=== PATIENT | female | born 1965 | race Caucasian/White ===

== ENCOUNTER 2019-04-11 20:02 | Outpatient (CLI) | payer MEDICAID | END 2019-04-11 20:03 | disposition critical access hospital (66) | LOC: EMS 20:02 | PROVIDERS: ATTEND Surgery | DX: R07.9 Chest pain, unspecified (principal); M25.512 Pain in left shoulder; R10.31 Right lower quadrant pain; M25.561 Pain in right knee; M79.632 Pain in left forearm; N64.4 Mastodynia; V49.40XA Driver injured in collision with unspecified motor vehicles in traffic accident, initial encounter; W22.11XA Striking against or struck by driver side automobile airbag, initial encounter; Y92.413 State road as the place of occurrence of the external cause | CPT/HCPCS: A0425; A0429; A0999 ==

== ENCOUNTER 2019-04-11 20:19 | Emergency (ER) | payer OTHER, MEDICAID ==
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
[2019-04-11] MEDS ORDERED: IOVERSOL 320 100 ML VIAL IVP ONE ×2 (20:29→20:59)
[2019-04-11 20:40] LABS: BASOPHILS % (AUTO) 0.3 %; EOSINOPHILS # (AUTO) 0.2 10^3/uL (0.0-0.7); EOSINOPHILS % (AUTO) 2.4 %; HGB - HEMOGLOBIN 12.2 g/dL (12.0-16.0); LYMPHOCYTES # (AUTO) 2.1 10^3/uL (1.5-3.5); LYMPHOCYTES % (AUTO) 33.7 %; MEAN CORPUSCULAR HEMOGLOBIN 29.3 pg (27.0-31.0); MEAN CORPUSCULAR HGB CONC 32.4 g/dL (32.0-36.0); MEAN CORPUSCULAR VOLUME 90.6 fL (81.0-99.0); MEAN PLATELET VOLUME 10.2 fL (7.9-10.8); MONOCYTES # (AUTO) 0.4 10^3/uL (0.0-1.0); MONOCYTES % (AUTO) 6.5 %; NEUTROPHILS # (AUTO) 3.5 10^3/uL (1.5-6.6); NEUTROPHILS % (AUTO) 56.8 %; PLT - PLATELET COUNT 243 10^3/uL (130-450); RED BLOOD COUNT 4.16 10^6/uL (4.20-5.40); RED CELL DISTRIBUTION WIDTH 13.4 % (12.0-15.0); WHITE BLOOD COUNT 6.2 x10^3/uL (4.8-10.8)
[2019-04-11 20:53] LABS: ALBUMIN/GLOBULIN RATIO 1.3 (1.0-2.2); BILIRUBIN,TOTAL 0.4 mg/dL (0.2-1.0); CALCIUM 8.7 mg/dL (8.5-10.3); CREATININE 0.8 mg/dL (0.4-1.0); TOTAL PROTEIN 7.1 g/dL (6.7-8.2)
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
[2019-04-11] MEDS ORDERED: HYDROcod/ACET 5/325 Prepack 4 PO STA (21:44)
[2019-04-12 00:47] VITALS: BP 135/92
== END 2019-04-11 21:51 | disposition home or self-care (01) ==
LOC: ED 20:19
DX: S20.219A Contusion of unspecified front wall of thorax, initial encounter (principal); S30.1XXA Contusion of abdominal wall, initial encounter; M79.632 Pain in left forearm; M25.561 Pain in right knee; V43.52XA Car driver injured in collision with other type car in traffic accident, initial encounter; W22.11XA Striking against or struck by driver side automobile airbag, initial encounter; Y92.411 Interstate highway as the place of occurrence of the external cause; R91.1 Solitary pulmonary nodule; Z87.891 Personal history of nicotine dependence
CPT/HCPCS: 36415; 71045; 71260; 74177; 80053; 83690; 85025; 99284; Q9967

== ENCOUNTER 2021-05-26 10:13 | Emergency (ER) | payer MEDICAID, OTHER ==
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
[2021-05-26 11:32] VITALS: BP 134/96
== END 2021-05-26 11:33 | disposition home or self-care (01) ==
LOC: ED 10:13
DX: S63.614A Unspecified sprain of right ring finger, initial encounter (principal); S60.041A Contusion of right ring finger without damage to nail, initial encounter; W21.06XA Struck by volleyball, initial encounter; Y93.89 Activity, other specified
CPT/HCPCS: 99282; 99283

== ENCOUNTER 2021-10-27 17:29 | Outpatient (CLI) | payer MEDICAID | END 2021-10-27 17:30 | disposition short-term general hospital (02) | LOC: EMS 17:29 | DX: R41.0 Disorientation, unspecified (principal); R51.9 Headache, unspecified; R47.81 Slurred speech; R29.810 Facial weakness; R42 Dizziness and giddiness | CPT/HCPCS: A0425; A0429; A0999 ==

== ENCOUNTER 2021-10-27 17:47 | Emergency (ER) | payer MEDICAID ==
--- NOTE | 2021-10-27 17:54 | ED Physician Documentation ---
History of Present Illness - Stated complaint Stated Complaint: CODE STROKE - Additonal information Additional information: 56-year-old female comes in the emergency department via EMS for evaluation of a code stroke. She was found in lawn of a house a few blocks from her own res idence. When EMS arrived she had left-sided facial droop and slurred speech. She was last seen normal at 3 PM when her niece had left the house. Patient reports to this provider that she has had a headache for much of the day and some occasional blurry vision in her left eye. She has not been aware of slurred speech or facial droop or arm or leg weakness. Patient was seen in this emergency department late last week after an intentional overdose attempt. She was subsequently transferred to [facility]. At that time her urine drug screen was positive for multiple medications including amphetamine and methamphetamine. On discharge from [facility] the patient was advised to begin taking bupropion, clonazepam, risperidone and sertraline for control of her mood and depression. She has been compliant with these. Review of Systems Constitutional: denies: Fever, Chills Ears: reports: Reviewed and negative Throat: reports: Reviewed and negative Cardiac: reports: Reviewed and negative Respiratory: reports: Reviewed and negative GI: reports: Reviewed and negative Skin: reports: Reviewed and negative Musculoskeletal: reports: Reviewed and negative Neurologic: reports: Difficulty speaking, Other (Left-sided facial droop) Psychiatric: reports: Reviewed and negative Endocrine: reports: Reviewed and negative PD PAST MEDICAL HISTORY - Past Medical History Cardiovascular: None Respiratory: None Neuro: None Endocrine/Autoimmune: None GI: None 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 : None HEENT: None Psych: Depression, Anxiety Musculoskeletal: None Derm: None - Past Surgical History Past Surgical History: Yes General: Cholecystectomy, Appendectomy HEENT: Other - Present Medications Home Medications: Ambulatory Orders Medication Instructions Recorded Confirmed Albuterol Sulfate [Proair 1 puffs INH Q4HR PRN 10/20/21 10/27/21 Digihaler] Omeprazole 40 mg PO DAILY 10/20/21 10/27/21 estradioL [Estradiol] 2 mg PO DAILY 10/20/21 10/27/21 Sertraline HCl [Zoloft] 50 mg PO TID 10/27/21 10/27/21 buPROPion HCL [Bupropion HCl] 100 mg PO BID 10/27/21 10/27/21 clonazePAM [KlonoPIN] 0.5 mg PO BID 10/27/21 10/27/21 - Allergies Allergies/Adverse Reactions: Allergies Allergy/AdvReac Type Severity Reaction Status Date / Time terbutaline [From Brethine] Allergy Rash Verified 10/27/21 18:15 Tetracyclines Allergy Rash Verified 10/27/21 18:15 latex AdvReac Rash Verified 10/27/21 18:15 vancomycin AdvReac Rash Verified 10/27/21 18:15 - Social History Does the pt smoke?: No Smoking Status: Never smoker Does the pt drink ETOH?: No - Immunizations Immunizations are current?: Yes PD ED PE EXPANDED - General General: Alert, Other (Mild slurred speech, left-sided facial droop) - Cardiac Cardiac: Regular Rate, Radial strong equal. No: Murmur Present - Respiratory Respiratory: Clear to ausultation heather. No: Distress, Labored - Abdomen Abdomen: Normal Bowel sounds. No: Tender to palpation - Derm Derm: Normal color, Warm and dry. No: Rash - Extremities Extremities: Normal. No: Deformity, Tenderness - Neuro Neuro: Confused, Other (Slurred speech left-sided facial droop) - GCS Eye Opening: Spontaneous Motor: Obeys Commands Verbal: Confused Total: 14 Results - Vitals Vitals: Vital Signs - 24 hr 10/27/21 10/27/21 10/27/21 18:12 18:47 19:30 Temperature 36.6 C Heart Rate 87 90 97 Respiratory 12 15 18 Rate Blood Pressure 144/82 H 154/89 H 140/87 H O2 Saturation 98 99 96 Oxygen O2 Source Room air - EKG (time done) 1812 Rate: Rate (enter#) (85) Rhythm: NSR [place]: Normal Intervals: Normal NV, Prolonged QT QRS: LVH Ischemia: Non specific changes Compare to prior EKG: Old EKG unavailable Computer interpretation: Agree with computer - Labs Labs: Laboratory Tests 10/27/21 10/27/21 10/27/21 18:20 18:20 18:20 WBC 6.8 RBC 4.30 Hgb 12.4 Hct 36.8 L MCV 85.6 MCH 28.8 MCHC 33.7 RDW 12.5 Plt Count 242 MPV 10.2 Neut # (Auto) 4.6 Lymph # (Auto) 1.6 [place] # (Auto) 0.5 Eos # (Auto) 0.0 Baso # (Auto) 0.0 Absolute Nucleated RBC 0.00 Nucleated RBC % 0.0 Sodium 135 Potassium 3.9 Chloride 100 L Carbon Dioxide 26 Anion Gap 9.0 BUN 17 Creatinine 0.9 Estimated GFR (MDRD) 65 L Glucose 108 H Calcium 9.1 Total Bilirubin < 0.2 L AST 25 ALT 34 Alkaline Phosphatase 52 Troponin I High Sens 2.6 Total Protein 6.7 Albumin 4.1 Globulin 2.6 Albumin/Globulin Ratio 1.6 Lipase 28 Urine Color Urine Clarity Urine pH Ur Specific [place] Urine Protein Urine Glucose (UA) Urine Ketones Urine Occult Blood Urine Nitrite Urine Bilirubin Urine Urobilinogen Ur Leukocyte Esterase Ur Microscopic Review Urine Culture Comments Urine Opiates Screen Ur Oxycodone Screen Urine Methadone Screen Ur Propoxyphene Screen Ur Barbiturates Screen Ur Tricyclics Screen Ur Phencyclidine Scrn Ur Amphetamine Screen U Methamphetamines Scrn U Benzodiazepines Scrn Urine Cocaine Screen U Cannabinoids Screen Ethyl Alcohol < 5.0 10/27/21 18:41 WBC RBC Hgb Hct MCV MCH MCHC RDW Plt Count MPV Neut # (Auto) Lymph # (Auto) [place] # (Auto) Eos # (Auto) Baso # (Auto) Absolute Nucleated RBC Nucleated RBC % Sodium Potassium Chloride Carbon Dioxide Anion Gap BUN Creatinine Estimated GFR (MDRD) Glucose Calcium Total Bilirubin AST ALT Alkaline Phosphatase Troponin I High Sens Total Protein Albumin Globulin Albumin/Globulin Ratio Lipase Urine Color YELLOW Urine Clarity CLEAR Urine pH 6.0 Ur Specific [place] 1.015 Urine Protein NEGATIVE Urine Glucose (UA) NEGATIVE Urine Ketones NEGATIVE Urine Occult Blood NEGATIVE Urine Nitrite NEGATIVE Urine Bilirubin NEGATIVE Urine Urobilinogen 0.2 (NORMAL) Ur Leukocyte Esterase NEGATIVE Ur Microscopic Review NOT INDICATED Urine Culture Comments NOT INDICATED Urine Opiates Screen NEGATIVE Ur Oxycodone Screen NEGATIVE Urine Methadone Screen NEGATIVE Ur Propoxyphene Screen NEGATIVE Ur Barbiturates Screen NEGATIVE Ur Tricyclics Screen POSITIVE H Ur Phencyclidine Scrn NEGATIVE Ur Amphetamine Screen NEGATIVE U Methamphetamines Scrn NEGATIVE U Benzodiazepines Scrn NEGATIVE Urine Cocaine Screen NEGATIVE U Cannabinoids Screen POSITIVE H Ethyl Alcohol - Rads (name of study) CT head/angio Radiology: Final report received angio neck Radiology: Final report received (no critical stenosis or aneurysm) PD MEDICAL DECISION MAKING - ED course Complexity details: reviewed results, re-evaluated patient, considered differential, d/w patient, d/w product safety consultant (tele stroke Dr. Luque) ED course: 56-year-old female comes the emergency department for evaluation of acute left- sided facial droop and slurred speech. Reportedly last normal around 3 PM when her niece left the house. Patient had reported a headache for much of the day and because she did not feel well went for a walk. She further began to feel poorly therefore she laid down in a lawn of a house where EMS was summoned. CT angio of the head and neck were negative for any acute thrombotic, aneurysmal or stenotic events. Given the timing of events she did have a telemetry stroke consultation completed. Her initial NIHSS was 4 for facial droop and slurred speech only. Telestroke evaluation indicates that they feel she likely has a complex migraine as etiology of symptoms but would recommend observation overnight for the stroke pathway and MRI as an outpatient if unable to accommodate here today. Given the relatively minor NIHSS score 4 she would not recommend tPA.. We will administer some Reglan to see if it improves the headache and give patient 325 of aspirin. 2005: On reevaluation the patient is now free of headache. She no longer has slurred speech or facial droop. Given that this improved after Reglan this likely represents a complex migraine However a TIA remains in the differential. We do not have echocardiogram or MRI services available overnight. I discussed with the patient that observation to the hospital would include only neurochecks since we cannot offer any other evaluation. At this time she feels markedly improved and feels stable for discharge home. She is advised to have very close follow-up with her primary care provider. She needs to have an outpatient MRI and an echocardiogram. She will be advised to begin taking aspirin 81 mg daily. Otherwise emergent return precautions discussed Departure - Departure Disposition: Home, Self Care Clinical Impression: Stroke-like symptoms Condition: Stable Record reviewed to determine appropriate education?: Yes Comments: Carrie you are seen in the emergency department today because you have had a headache all day and you went on a walk where you began to feel further unwell. You laid in a grass yard of a neighbor and 911 was called. On presentation to the emergency department you complained of a headache and had some very mild left-sided facial droop and slurred speech. We did do CT angiogram of the blood vessels of your head and neck. There was no findings of intracranial hemorrhage, stenosis or aneurysm. You were evaluated by the telestroke neurologist Dr. Luque. She feels that the constellation of your symptoms likely means you have had a complex migraine though a TIA or transient ischemic attack is not fully ruled out. Unfortunately we do not have MRI available over the weekend at [facility]. However because your symptoms seems to have fully resolved you are stable for discharge home. We do make the recommendation that you start taking a baby aspirin each day. Your primary care provider should order an outpatient MRI of your brain as well as an echocardiogram of your heart. You can continue to take all the other medications as advised by [facility]. If at any point you redevelop slurred speech, have loss of vision facial droop or sudden weakness in your arms or legs and please return immediately to the ER for repeat evaluation NIHSS - Time Time: 17:50 - Level of Consciousness Level of consciousness: (0) Alert, Keenly responsive LOC Questions: (0) Answers both Q's correct LOC Commands: (0) Performs both correctly - Gaze Best Gaze: (0) Normal - Visual Visual: (0) No loss - Facial Palsy Facial Palsy: (2) Partial paralysis - Motor Arms (both separate) Motor Arm (right): (0) No drift Motor Arm (left): (0) No drift - Motor Legs (both separate) Motor Leg (right): (0) No drift Motor Leg (left): (0) No drift - Limb Ataxia Limb Ataxia: (0) Absent - Sensory Sensory: (0) Normal - Best Language Best Language: (1) [id number] - Dysarthria Dysarthria: (1) [id number] dysarthria - Extinction and Inattention (formally neg Extinction and inattention: (0) No abnormality - Total Score/Results Total Score/Result: 4
--- OUTSIDE RECORDS SUMMARY | 2021-10-27 18:16 | EXTERNAL MEDICAL SUMMARY RPT | Continuity of Care Document ---
:1965 Author Organization [facility] Address [address] [place] [address] Phone Allergies and Intolerances date description facility type (no date) [facility] (unknown) Encounters No information. Functional Status No information. Immunizations No information. Medications date description facility +0000 Ibuprofen 800 MG Oral Tablet [facility] +0000 Lorazepam 1 MG Oral Tablet [facility] +0000 Acetaminophen 325 MG / Hydrocodone Is [facility] Bitartrate 5 MG Oral Tablet Problems No information. Procedures date description facility +0000 [facility] Results/Labs test date author facility value unit interpret ation Result panel 1 (unknown) (no (unknown) (unknown) (no value) (units (unk nown) date) unknown) (unknown) (no (unknown) (unknown) Medications: (units (u nknown) date) unknown) (unknown) (no (unknown) (unknown) '[facility]' (units (unkno wn) date) unknown) (unknown) (no (unknown) (unknown) [place], [place] (units ( unknown) date) [id number] unknown) (unknown) (no (unknown) (unknown) [facility] (units (unkno wn) date) unknown) (unknown) (no (unknown) (unknown) [facility] (units ([facility] date[facility]) (unknown) (no (unknown) (unknown) [facility] BENADRYL (units ( unknown) date) FIRST unknown) (unknown) (no (unknown) (unknown) HEART ATTACK (units (u nknown) date) unknown) (unknown) (no (unknown) (unknown) HIVES/VOMIT (units (un known) date) unknown) (unknown) (no (unknown) (unknown) IF ON AWHILE OR (units (unknown) date) IN MOUTH (DENTAL) unknown) (unknown) (no (unknown) (unknown) Internal Medicine (units (unknown) date) Office Visit unknown) (unknown) (no (unknown) (unknown) VOMITING (units (unkno wn) date) unknown) (unknown) (no (unknown) (unknown) please take it (units (unknown) date) with foods 800 mg unknown) PO TID PRN 150 tabs 3RF pain (unknown) (no (unknown) (unknown) (no value) (units (unk nown) date) unknown) (unknown) (no (unknown) (unknown) Confirmed (units (unkn own) date) 08/28/21] unknown) (unknown) (no (unknown) (unknown) 08/17/21 [Rx (units (u nknown) date) Confirmed unknown) 08/28/21] (unknown) (no (unknown) (unknown) 08/28/21 (units (unkno wn) date) unknown) (unknown) (no (unknown) (unknown) 08/28/21] (units (unkn own) date) unknown) (unknown) (no (unknown) (unknown) [id number] (units (unkno wn) date) unknown) (unknown) (no (unknown) (unknown) Age/Sex: 56 / F (units (unknown) date) Date of Service: unknown) (unknown) (no (unknown) (unknown) Allergies (units (unkn own) date) unknown) (unknown) (no (unknown) (unknown) Anxiety (units (unkno wn) date) (11/22/16) unknown) (unknown) (no (unknown) (unknown) Assessment + Plan (units (unknown) date) unknown) (unknown) (no (unknown) (unknown) Attending Dr: (units ( unknown) date) Nasir Burdick MD unknown) (unknown) (no (unknown) (unknown) Bipolar I (units (unkn own) date) disorder unknown) (unknown) (no (unknown) (unknown) Chronic back pain (units (unknown) date) unknown) (unknown) (no (unknown) (unknown) Chronic left (units (u nknown) date) shoulder pain unknown) (unknown) (no (unknown) (unknown) Chronic pain of (units (unknown) date) left knee unknown) (unknown) (no (unknown) (unknown) Chronic pain (units (u nknown) date) syndrome unknown) (unknown) (no (unknown) (unknown) Confirmed (units (unkn own) date) 08/28/21] unknown) (unknown) (no (unknown) (unknown) : 1965 (units (unknown) date) Acct:[id number] unknown) (unknown) (no (unknown) (unknown) Dept at (units (unkno wn) date) . unknown) (unknown) (no (unknown) (unknown) Dizziness (units (unkn own) date) unknown) (unknown) (no (unknown) (unknown) Documented By: (units (unknown) date) Nasir Burdick MD unknown) 08/28/21 1521 (unknown) (no (unknown) (unknown) Dyspareunia in (units (unknown) date) female (05/22/16) unknown) (unknown) (no (unknown) (unknown) H/O migraine (units (u nknown) date) unknown) (unknown) (no (unknown) (unknown) Has a bad knot (units (unknown) date) between neck and unknown) lower back. (unknown) (no (unknown) (unknown) Hearing loss (units (u nknown) date) unknown) (unknown) (no (unknown) (unknown) History of bowel (units (unknown) date) resection unknown) (unknown) (no (unknown) (unknown) INHALATION Q2HP (units (unknown) date) PRN #2 inh unknown) 06/26/21 [Rx Confirmed 08/28/21] (unknown) (no (unknown) (unknown) Intake (units (unkno wn) date) unknown) (unknown) (no (unknown) (unknown) Intake Note: (units (u nknown) date) unknown) (unknown) (no (unknown) (unknown) Intake performed (units (unknown) date) by: Lavinia Dutton unknown) (unknown) (no (unknown) (unknown) Intake- Clincial (units (unknown) date) Staff unknown) (unknown) (no (unknown) (unknown) Last Menstural (units (unknown) date) Cycle + Details unknown) (unknown) (no (unknown) (unknown) Loc: [facility] (units (unkno wn) date) unknown) (unknown) (no (unknown) (unknown) Lower left eyelid (units (unknown) date) twiches a lot now unknown) (unknown) (no (unknown) (unknown) Major depression (units (unknown) date) in complete unknown) remission (unknown) (no (unknown) (unknown) Medical History (units (unknown) date) (Updated 03/06/21 unknown) @ 11:29 by Nasir Burdick MD) (unknown) (no (unknown) (unknown) Medications (units (un known) date) unknown) (unknown) (no (unknown) (unknown) Mixed (units (unkno wn) date) incontinence unknown) (unknown) (no (unknown) (unknown) Mother thought (units (unknown) date) she may have been unknown) diabetic - was checking #s for a week and #s (unknown) (no (unknown) (unknown) No other (units (unkno wn) date) questions/concerns unknown) brought up to MA. (unknown) (no (unknown) (unknown) Other Menstrual (units (unknown) date) Period: Surgical unknown) Menopause (unknown) (no (unknown) (unknown) PFSH (units (unkno wn) date) unknown) (unknown) (no (unknown) (unknown) Patient: (units (unkno wn) date) HeatherconiCarrie unknown) MR#: [id number] (unknown) (no (unknown) (unknown) Present for 3 (units ( unknown) date) weeks and thats unknown) how long the dizziness has been present. (unknown) (no (unknown) (unknown) Primary insomnia (units (unknown) date) (05/22/16) unknown) (unknown) (no (unknown) (unknown) Reason For Visit (units (unknown) date) unknown) (unknown) (no (unknown) (unknown) Refilled (units (unkno wn) date) unknown) (unknown) (no (unknown) (unknown) Review/Discuss. (units (unknown) date) unknown) (unknown) (no (unknown) (unknown) Signed By: (units (unk nown) date) unknown) (unknown) (no (unknown) (unknown) Smoking Status: (units (unknown) date) Former smoker unknown) (unknown) (no (unknown) (unknown) Status post (units (un known) date) appendectomy unknown) (unknown) (no (unknown) (unknown) Status post (units (un known) date) cholecystectomy unknown) (unknown) (no (unknown) (unknown) Surgical History (units (unknown) date) (Reviewed 02/25/19 unknown) @ 05:05 by Mendoza Alejandro DO) (unknown) (no (unknown) (unknown) TAPES-CLEAR (units (un known) date) Allergy (Mild, unknown) Uncoded 08/28/21 15:21) (unknown) (no (unknown) (unknown) This note may (units ( unknown) date) have been all or unknown) partially generated using voice recognition (unknown) (no (unknown) (unknown) Tobacco + (units (unkn own) date) Substance Use unknown) (unknown) (no (unknown) (unknown) Tobacco Status (units (unknown) date) unknown) (unknown) (no (unknown) (unknown) Uncomplicated (units ( unknown) date) opioid dependence unknown) (unknown) (no (unknown) (unknown) Visit Reasons: (units (unknown) date) Dizziness unknown) (unknown) (no (unknown) (unknown) Wonders if it (units ( unknown) date) might be unknown) chiropactic. (unknown) (no (unknown) (unknown) albuterol sulfate (units (unknown) date) 90 mcg/actuation unknown) aerosol inhaler (Ventolin HFA) 2 puff (unknown) (no (unknown) (unknown) alcohol intake: (units (unknown) date) never unknown) (unknown) (no (unknown) (unknown) azelastine 205.5 (units (unknown) date) mcg (0.15 %) nasal unknown) spray 1 spray NASAL BID #30 ml 10/28/18 [Rx (unknown) (no (unknown) (unknown) chlorhexidine (units ( unknown) date) gluconate 0.12 % unknown) mouthwash 15 ml MM BID PRN ml 11/25/18 [History (unknown) (no (unknown) (unknown) cyclobenzaprine (units (unknown) date) 10 mg tablet 10 mg unknown) PO TID PRN #60 tab 04/19/21 [Rx Confirmed (unknown) (no (unknown) (unknown) estradiol 2 mg (units (unknown) date) tablet 2 mg PO unknown) DAILY #90 tab 03/17/22 [Rx Confirmed 08/28/21] (unknown) (no (unknown) (unknown) have occurred. (units (unknown) date) If there are any unknown) questions, please contact the Medical Records (unknown) (no (unknown) (unknown) hydrocodone 5 (units ( unknown) date) mg-acetaminophen unknown) 325 mg tablet 1 - 2 tab PO Q4H PRN #70 tab (unknown) (no (unknown) (unknown) hyoscyamine (units (un known) date) sulfate 0.125 mg unknown) tablet 0.125 mg PO Q4H PRN #90 tab 07/04/21 [Rx (unknown) (no (unknown) (unknown) ibuprofen (units (unkn own) date) unknown) (unknown) (no (unknown) (unknown) ibuprofen 800 mg (units (unknown) date) tablet 800 mg PO unknown) TID PRN #150 tab 08/28/21 [Rx Confirmed (unknown) (no (unknown) (unknown) latex Allergy (units ( unknown) date) (Mild, Verified unknown) 08/28/21 15:21) (unknown) (no (unknown) (unknown) loratadine 10 mg (units (unknown) date) tablet 10 mg PO unknown) DAILY #90 tab 12/28/20 [Rx Confirmed 08/28/21] (unknown) (no (unknown) (unknown) lorazepam 1 mg (units (unknown) date) tablet 1 mg PO Q8H unknown) PRN #60 tab 08/17/21 [Rx Confirmed 08/28/21] (unknown) (no (unknown) (unknown) may occur. (units (unk nown) date) Occasional unknown) wrong-word or 'sound-alike' substitutions may have (unknown) (no (unknown) (unknown) naproxen Adverse (units (unknown) date) Reaction (Mild, unknown) Verified 08/28/21 15:21) (unknown) (no (unknown) (unknown) occurred due to (units (unknown) date) the inherent unknown) limitations of voice recognition software. Please (unknown) (no (unknown) (unknown) omeprazole 40 mg (units (unknown) date) capsule,delayed unknown) release 40 mg PO DAILY #90 cap 03/27/21 [Rx (unknown) (no (unknown) (unknown) read the note (units ( unknown) date) carefully and unknown) recognize, using context, where these substitutions (unknown) (no (unknown) (unknown) ritodrine Allergy (units (unknown) date) (Severe, Verified unknown) 08/28/21 15:21) (unknown) (no (unknown) (unknown) sertraline 100 mg (units (unknown) date) tablet 150 mg PO unknown) DAILY #135 tab 11/28/20 [Rx Confirmed (unknown) (no (unknown) (unknown) software. 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 (unknown) (no (unknown) (unknown) substance use (units ( unknown) date) type: does not use unknown) (unknown) (no (unknown) (unknown) sucralfate 1 gram (units (unknown) date) tablet 1 g PO unknown) QACHS #120 tab 11/28/20 [Rx Confirmed 08/28/21] (unknown) (no (unknown) (unknown) tetracycline (units (u nknown) date) Allergy (Mild, unknown) Verified 08/28/21 15:21) (unknown) (no (unknown) (unknown) trazodone 50 mg (units (unknown) date) tablet See Rx unknown) Instructions .ROUTE .COMPLEX #360 tab 06/19/21 [Rx (unknown) (no (unknown) (unknown) vancomycin (units (unk nown) date) Allergy unknown) (Intermediate, Verified 08/28/21 15:21) (unknown) (no (unknown) (unknown) were fine. (units (unk nown) date) unknown) Result panel 2 (unknown) (no (unknown) (unknown) (no value) (units (unk nown) date) unknown) (unknown) (no (unknown) (unknown) Medications: (units (u nknown) date) unknown) (unknown) (no (unknown) (unknown) (no value) (units (unk nown) date) unknown) (unknown) (no (unknown) (unknown) '[facility]IAM' (units (unkno wn) date) unknown) (unknown) (no (unknown) (unknown) 08/28/21 (units (unkno wn) date) unknown) (unknown) (no (unknown) (unknown) 15:27 (units (unkno wn) date) unknown) (unknown) (no (unknown) (unknown) [place], [place] (units ( unknown) date) [id number] unknown) (unknown) (no (unknown) (unknown) [facility] (units (unkno wn) date) unknown) (unknown) (no (unknown) (unknown) [facility] ([facility] ([facility]) (unknown) (no (unknown) (unknown) [facility] (units ( unknown) date) FIRST unknown) (unknown) (no (unknown) (unknown) HEART ATTACK (units (u nknown) date) unknown) (unknown) (no (unknown) (unknown) HIVES/VOMIT (units (un known) date) unknown) (unknown) (no (unknown) (unknown) IF ON AWHILE OR (units (unknown) date) IN MOUTH (DENTAL) unknown) (unknown) (no (unknown) (unknown) Internal Medicine (units (unknown) date) Office Visit unknown) (unknown) (no (unknown) (unknown) VOMITING (units (unkno wn) date) unknown) (unknown) (no (unknown) (unknown) please take it (units (unknown) date) with foods 800 mg unknown) PO TID PRN 150 tabs 3RF pain (unknown) (no (unknown) (unknown) (no value) (units (unk nown) date) unknown) (unknown) (no (unknown) (unknown) Confirmed (units (unkn own) date) 08/28/21] unknown) (unknown) (no (unknown) (unknown) 08/17/21 [Rx (units (u nknown) date) Confirmed unknown) 08/28/21] (unknown) (no (unknown) (unknown) 08/28/21 (units (unkno wn) date) unknown) (unknown) (no (unknown) (unknown) 08/28/21] (units (unkn own) date) unknown) (unknown) (no (unknown) (unknown) [id number] (units (unkno wn) date) unknown) (unknown) (no (unknown) (unknown) Age/Sex: 56 / F (units (unknown) date) Date of Service: unknown) (unknown) (no (unknown) (unknown) Allergies (units (unkn own) date) unknown) (unknown) (no (unknown) (unknown) Anxiety (units (unkno wn) date) (11/22/16) unknown) (unknown) (no (unknown) (unknown) Assessment + Plan (units (unknown) date) unknown) (unknown) (no (unknown) (unknown) Attending Dr: (units ( unknown) date) Nasir Burdick MD unknown) (unknown) (no (unknown) (unknown) BMI 25.8 (units (un known) date) unknown) (unknown) (no (unknown) (unknown) BP 130/92 H (units (unknown) date) unknown) (unknown) (no (unknown) (unknown) Bipolar I (units (unkn own) date) disorder unknown) (unknown) (no (unknown) (unknown) Blood Pressure (units (unknown) date) Location Lt unknown) brachial (unknown) (no (unknown) (unknown) Chronic back pain (units (unknown) date) unknown) (unknown) (no (unknown) (unknown) Chronic left (units (u nknown) date) shoulder pain unknown) (unknown) (no (unknown) (unknown) Chronic pain of (units (unknown) date) left knee unknown) (unknown) (no (unknown) (unknown) Chronic pain (units (u nknown) date) syndrome unknown) (unknown) (no (unknown) (unknown) Confirmed (units (unkn own) date) 08/28/21] unknown) (unknown) (no (unknown) (unknown) : 1965 (units (unknown) date) Acct:[id number] unknown) (unknown) (no (unknown) (unknown) Dept at (units (unkno wn) date) . unknown) (unknown) (no (unknown) (unknown) Dizziness (units (unkn own) date) unknown) (unknown) (no (unknown) (unknown) Documented By: (units (unknown) date) Nasir Burdick MD unknown) 08/28/21 1521 (unknown) (no (unknown) (unknown) Dyspareunia in (units (unknown) date) female (05/22/16) unknown) (unknown) (no (unknown) (unknown) H/O migraine (units (u nknown) date) unknown) (unknown) (no (unknown) (unknown) Has a bad knot (units (unknown) date) between neck and unknown) lower back. (unknown) (no (unknown) (unknown) Hearing loss (units (u nknown) date) unknown) (unknown) (no (unknown) (unknown) Height 5 ft 8 (units (unknown) date) in unknown) (unknown) (no (unknown) (unknown) History of bowel (units (unknown) date) resection unknown) (unknown) (no (unknown) (unknown) INHALATION Q2HP (units (unknown) date) PRN #2 inh unknown) 06/26/21 [Rx Confirmed 08/28/21] (unknown) (no (unknown) (unknown) Intake (units (unkno wn) date) unknown) (unknown) (no (unknown) (unknown) Intake Note: (units (u nknown) date) unknown) (unknown) (no (unknown) (unknown) Intake performed (units (unknown) date) by: Lavinia Dutton unknown) (unknown) (no (unknown) (unknown) Intake- Clincial (units (unknown) date) Staff unknown) (unknown) (no (unknown) (unknown) Last Menstural (units (unknown) date) Cycle + Details unknown) (unknown) (no (unknown) (unknown) Loc: [facility] (units (unkno wn) date) unknown) (unknown) (no (unknown) (unknown) Lower left eyelid (units (unknown) date) twiches a lot now unknown) (unknown) (no (unknown) (unknown) Major depression (units (unknown) date) in complete unknown) remission (unknown) (no (unknown) (unknown) Medical History (units (unknown) date) (Updated 03/06/21 unknown) @ 11:29 by Nasir Burdick MD) (unknown) (no (unknown) (unknown) Medications (units (un known) date) unknown) (unknown) (no (unknown) (unknown) Mixed (units (unkno wn) date) incontinence unknown) (unknown) (no (unknown) (unknown) Mother thought (units (unknown) date) she may have been unknown) diabetic - was checking #s for a week and #s (unknown) (no (unknown) (unknown) No other (units (unkno wn) date) questions/concerns unknown) brought up to MA. (unknown) (no (unknown) (unknown) Other Menstrual (units (unknown) date) Period: Surgical unknown) Menopause (unknown) (no (unknown) (unknown) Oxygen Delivery (units (unknown) date) Method room air unknown) (unknown) (no (unknown) (unknown) PFSH (units (unkno wn) date) unknown) (unknown) (no (unknown) (unknown) Patient: (units (unkno wn) date) Carrie Horn R unknown) MR#: [id number] (unknown) (no (unknown) (unknown) Position (units (unkno wn) date) Sitting unknown) (unknown) (no (unknown) (unknown) Present for 3 (units ( unknown) date) weeks and thats unknown) how long the dizziness has been present. (unknown) (no (unknown) (unknown) Primary insomnia (units (unknown) date) (05/22/16) unknown) (unknown) (no (unknown) (unknown) Pulse 87 (units (un known) date) unknown) (unknown) (no (unknown) (unknown) Pulse Oximetry (units (unknown) date) (%) 98 unknown) (unknown) (no (unknown) (unknown) Pulse Source (units (u nknown) date) Monitor unknown) (unknown) (no (unknown) (unknown) Reason For Visit (units (unknown) date) unknown) (unknown) (no (unknown) (unknown) Refilled (units (unkno wn) date) unknown) (unknown) (no (unknown) (unknown) Review/Discuss. (units (unknown) date) unknown) (unknown) (no (unknown) (unknown) Signed By: (units (unk nown) date) unknown) (unknown) (no (unknown) (unknown) Smoking Status: (units (unknown) date) Former smoker unknown) (unknown) (no (unknown) (unknown) Status post (units (un known) date) appendectomy unknown) (unknown) (no (unknown) (unknown) Status post (units (un known) date) cholecystectomy unknown) (unknown) (no (unknown) (unknown) Surgical History (units (unknown) date) (Reviewed 02/25/19 unknown) @ 05:05 by Mendoza Alejandro DO) (unknown) (no (unknown) (unknown) TAPES-CLEAR (units (un known) date) Allergy (Mild, unknown) Uncoded 08/28/21 15:21) (unknown) (no (unknown) (unknown) This note may (units ( unknown) date) have been all or unknown) partially generated using voice recognition (unknown) (no (unknown) (unknown) Tobacco + (units (unkn own) date) Substance Use unknown) (unknown) (no (unknown) (unknown) Tobacco Status (units (unknown) date) unknown) (unknown) (no (unknown) (unknown) Uncomplicated (units ( unknown) date) opioid dependence unknown) (unknown) (no (unknown) (unknown) Visit Reasons: (units (unknown) date) Dizziness unknown) (unknown) (no (unknown) (unknown) Vitals (units (unkno wn) date) unknown) (unknown) (no (unknown) (unknown) Weight 77.167 (units (unknown) date) kg unknown) (unknown) (no (unknown) (unknown) Wonders if it (units ( unknown) date) might be unknown) chiropactic. (unknown) (no (unknown) (unknown) albuterol sulfate (units (unknown) date) 90 mcg/actuation unknown) aerosol inhaler (Ventolin HFA) 2 puff (unknown) (no (unknown) (unknown) alcohol intake: (units (unknown) date) never unknown) (unknown) (no (unknown) (unknown) azelastine 205.5 (units (unknown) date) mcg (0.15 %) nasal unknown) spray 1 spray NASAL BID #30 ml 10/28/18 [Rx (unknown) (no (unknown) (unknown) chlorhexidine (units ( unknown) date) gluconate 0.12 % unknown) mouthwash 15 ml MM BID PRN ml 11/25/18 [History (unknown) (no (unknown) (unknown) cyclobenzaprine (units (unknown) date) 10 mg tablet 10 mg unknown) PO TID PRN #60 tab 04/19/21 [Rx Confirmed (unknown) (no (unknown) (unknown) estradiol 2 mg (units (unknown) date) tablet 2 mg PO unknown) DAILY #90 tab 07/13/21 [Rx Confirmed 08/28/21] (unknown) (no (unknown) (unknown) have occurred. (units (unknown) date) If there are any unknown) questions, please contact the Medical Records (unknown) (no (unknown) (unknown) hydrocodone 5 (units ( unknown) date) mg-acetaminophen unknown) 325 mg tablet 1 - 2 tab PO Q4H PRN #70 tab (unknown) (no (unknown) (unknown) hyoscyamine (units (un known) date) sulfate 0.125 mg unknown) tablet 0.125 mg PO Q4H PRN #90 tab 07/04/21 [Rx (unknown) (no (unknown) (unknown) ibuprofen (units (unkn own) date) unknown) (unknown) (no (unknown) (unknown) ibuprofen 800 mg (units (unknown) date) tablet 800 mg PO unknown) TID PRN #150 tab 08/28/21 [Rx Confirmed (unknown) (no (unknown) (unknown) latex Allergy (units ( unknown) date) (Mild, Verified unknown) 08/28/21 15:21) (unknown) (no (unknown) (unknown) loratadine 10 mg (units (unknown) date) tablet 10 mg PO unknown) DAILY #90 tab 12/28/20 [Rx Confirmed 08/28/21] (unknown) (no (unknown) (unknown) lorazepam 1 mg (units (unknown) date) tablet 1 mg PO Q8H unknown) PRN #60 tab 08/17/21 [Rx Confirmed 08/28/21] (unknown) (no (unknown) (unknown) may occur. (units (unk nown) date) Occasional unknown) wrong-word or 'sound-alike' substitutions may have (unknown) (no (unknown) (unknown) naproxen Adverse (units (unknown) date) Reaction (Mild, unknown) Verified 08/28/21 15:21) (unknown) (no (unknown) (unknown) occurred due to (units (unknown) date) the inherent unknown) limitations of voice recognition software. Please (unknown) (no (unknown) (unknown) omeprazole 40 mg (units (unknown) date) capsule,delayed unknown) release 40 mg PO DAILY #90 cap 03/27/21 [Rx (unknown) (no (unknown) (unknown) read the note (units ( unknown) date) carefully and unknown) recognize, using context, where these substitutions (unknown) (no (unknown) (unknown) ritodrine Allergy (units (unknown) date) (Severe, Verified unknown) 08/28/21 15:21) (unknown) (no (unknown) (unknown) sertraline 100 mg (units (unknown) date) tablet 150 mg PO unknown) DAILY #135 tab 11/28/20 [Rx Confirmed (unknown) (no (unknown) (unknown) software. 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 (unknown) (no (unknown) (unknown) substance use (units ( unknown) date) type: does not use unknown) (unknown) (no (unknown) (unknown) sucralfate 1 gram (units (unknown) date) tablet 1 g PO unknown) QACHS #120 tab 11/28/20 [Rx Confirmed 08/28/21] (unknown) (no (unknown) (unknown) tetracycline (units (u nknown) date) Allergy (Mild, unknown) Verified 08/28/21 15:21) (unknown) (no (unknown) (unknown) trazodone 50 mg (units (unknown) date) tablet See Rx unknown) Instructions .ROUTE .COMPLEX #360 tab 06/19/21 [Rx (unknown) (no (unknown) (unknown) vancomycin (units (unk nown) date) Allergy unknown) (Intermediate, Verified 08/28/21 15:21) (unknown) (no (unknown) (unknown) were fine. (units (unk nown) date) unknown) Result panel 3 (unknown) (no (unknown) (unknown) (no value) (units (unk nown) date) unknown) (unknown) (no (unknown) (unknown) Medications: (units (u nknown) date) unknown) (unknown) (no (unknown) (unknown) Orders: (units (unkno wn) date) unknown) (unknown) (no (unknown) (unknown) Qualifiers: (units (un known) date) unknown) (unknown) (no (unknown) (unknown) (no value) (units (unk nown) date) unknown) (unknown) (no (unknown) (unknown) 'WILLIAM' (units (unkno wn) date) unknown) (unknown) (no (unknown) (unknown) 08/28/21 (units (unkno wn) date) unknown) (unknown) (no (unknown) (unknown) 08/28/21 1544 (units ( unknown) date) unknown) (unknown) (no (unknown) (unknown) 15:27 (units (unkno wn) date) unknown) (unknown) (no (unknown) (unknown) [place] (units ( unknown) date) [id number] unknown) (unknown) (no (unknown) (unknown) [facility] (units ([facility] date[facility] unknown) (unknown) (no (unknown) (unknown) [facility] (units ( unknown) date) FIRST unknown) (unknown) (no (unknown) (unknown) HEART ATTACK (units (u nknown) date) unknown) (unknown) (no (unknown) (unknown) HIVES/VOMIT (units (un known) date) unknown) (unknown) (no (unknown) (unknown) Headache type: (units (unknown) date) unspecified unknown) Headache chronicity pattern: unspecified (unknown) (no (unknown) (unknown) IF ON AWHILE OR (units (unknown) date) IN MOUTH (DENTAL) unknown) (unknown) (no (unknown) (unknown) Internal Medicine (units (unknown) date) Office Visit unknown) (unknown) (no (unknown) (unknown) Signed (units (unkno wn) date) unknown) (unknown) (no (unknown) (unknown) VOMITING (units (unkno wn) date) unknown) (unknown) (no (unknown) (unknown) please take it (units (unknown) date) with foods 800 mg unknown) PO TID PRN 150 tabs 3RF pain (unknown) (no (unknown) (unknown) (no value) (units (unk nown) date) unknown) (unknown) (no (unknown) (unknown) Confirmed (units (unkn own) date) 08/28/21] unknown) (unknown) (no (unknown) (unknown) (1) Headache: (units ( unknown) date) unknown) (unknown) (no (unknown) (unknown) (2) Dizziness: (units (unknown) date) unknown) (unknown) (no (unknown) (unknown) 08/17/21 [Rx (units (u nknown) date) Confirmed unknown) 08/28/21] (unknown) (no (unknown) (unknown) 08/28/21 (units (unkno wn) date) unknown) (unknown) (no (unknown) (unknown) 08/28/21] (units (unkn own) date) unknown) (unknown) (no (unknown) (unknown) [id number] (units (unkno wn) date) unknown) (unknown) (no (unknown) (unknown) Abdomen-benign (units (unknown) date) unknown) (unknown) (no (unknown) (unknown) Age/Sex: 56 / F (units (unknown) date) Date of Service: unknown) (unknown) (no (unknown) (unknown) Allergies (units (unkn own) date) unknown) (unknown) (no (unknown) (unknown) Anxiety (units (unkno wn) date) (11/22/16) unknown) (unknown) (no (unknown) (unknown) Assessment + Plan (units (unknown) date) unknown) (unknown) (no (unknown) (unknown) Attending Dr: (units ( unknown) date) Nasir Burdick MD unknown) (unknown) (no (unknown) (unknown) BMI 25.8 (units (un known) date) unknown) (unknown) (no (unknown) (unknown) BP 130/92 H (units (unknown) date) unknown) (unknown) (no (unknown) (unknown) Bipolar I (units (unkn own) date) disorder unknown) (unknown) (no (unknown) (unknown) Blood Pressure (units (unknown) date) Location Lt unknown) brachial (unknown) (no (unknown) (unknown) C-Reactive (units (unk nown) date) Protein Quant unknown) Today H91.90 - Unspecified hearing loss, unspecified (unknown) (no (unknown) (unknown) CT head/brain wo (units (unknown) date) con 1 Week R42 - unknown) Dizziness and giddiness, R51.9 - Headache, (unknown) (no (unknown) (unknown) Chief Complaint: (units (unknown) date) Dizziness unknown) (unknown) (no (unknown) (unknown) Chronic back pain (units (unknown) date) unknown) (unknown) (no (unknown) (unknown) Chronic left (units (u nknown) date) shoulder pain unknown) (unknown) (no (unknown) (unknown) Chronic pain of (units (unknown) date) left knee unknown) (unknown) (no (unknown) (unknown) Chronic pain (units (u nknown) date) syndrome unknown) (unknown) (no (unknown) (unknown) Complete Blood (units (unknown) date) Count AUTO DIFF unknown) Today - Unspecified hearing loss, (unknown) (no (unknown) (unknown) Comprehensive (units ( unknown) date) Metabolic Panel unknown) Today - Unspecified hearing loss, (unknown) (no (unknown) (unknown) Confirmed (units (unkn own) date) 08/28/21] unknown) (unknown) (no (unknown) (unknown) : 1965 (units (unknown) date) Acct:[id number] unknown) (unknown) (no (unknown) (unknown) Dept at (units (unkno wn) date) . unknown) (unknown) (no (unknown) (unknown) Dizziness (units (unkn own) date) unknown) (unknown) (no (unknown) (unknown) Documented By: (units (unknown) date) Nasir Burdick MD unknown) 08/28/21 1521 (unknown) (no (unknown) (unknown) Dyspareunia in (units (unknown) date) female (05/22/16) unknown) (unknown) (no (unknown) (unknown) Erythrocyte (units (un known) date) Sedimentation Rate unknown) Today - Unspecified hearing loss, (unknown) (no (unknown) (unknown) Exam (units (unkno wn) date) unknown) (unknown) (no (unknown) (unknown) Exam Narrative (units (unknown) date) unknown) (unknown) (no (unknown) (unknown) Exam Narrative: (units (unknown) date) unknown) (unknown) (no (unknown) (unknown) Get labs on her (units (unknown) date) to make sure her unknown) thyroids not offer chemistries are okay and (unknown) (no (unknown) (unknown) H/O migraine (units (u nknown) date) unknown) (unknown) (no (unknown) (unknown) HEENT-normocephal (units (unknown) date) ic atraumatic TMs unknown) normal ear canals normal (unknown) (no (unknown) (unknown) Has a bad knot (units (unknown) date) between neck and unknown) lower back. (unknown) (no (unknown) (unknown) Hearing loss (units (u nknown) date) unknown) (unknown) (no (unknown) (unknown) Heart-regular (units ( unknown) date) rate and rhythm unknown) (unknown) (no (unknown) (unknown) Height 5 ft 8 (units (unknown) date) in unknown) (unknown) (no (unknown) (unknown) History of bowel (units (unknown) date) resection unknown) (unknown) (no (unknown) (unknown) INHALATION Q2HP (units (unknown) date) PRN #2 inh unknown) 06/26/21 [Rx Confirmed 08/28/21] (unknown) (no (unknown) (unknown) Intake (units (unkno wn) date) unknown) (unknown) (no (unknown) (unknown) Intake Note: (units (u nknown) date) unknown) (unknown) (no (unknown) (unknown) Intake performed (units (unknown) date) by: Lavinia Dutton unknown) (unknown) (no (unknown) (unknown) Intake- Clincial (units (unknown) date) Staff unknown) (unknown) (no (unknown) (unknown) Last Menstural (units (unknown) date) Cycle + Details unknown) (unknown) (no (unknown) (unknown) Loc: [facility] (units (unkno wn) date) unknown) (unknown) (no (unknown) (unknown) Lower left eyelid (units (unknown) date) twiches a lot now unknown) (unknown) (no (unknown) (unknown) Lungs-clear (units (un known) date) unknown) (unknown) (no (unknown) (unknown) Major depression (units (unknown) date) in complete unknown) remission (unknown) (no (unknown) (unknown) Medical History (units (unknown) date) (Updated 03/06/21 unknown) @ 11:29 by Nasir Burdick MD) (unknown) (no (unknown) (unknown) Medications (units (un known) date) unknown) (unknown) (no (unknown) (unknown) Mixed (units (unkno wn) date) incontinence unknown) (unknown) (no (unknown) (unknown) Mother thought (units (unknown) date) she may have been unknown) diabetic - was checking #s for a week and #s (unknown) (no (unknown) (unknown) Neck-no bruits (units (unknown) date) unknown) (unknown) (no (unknown) (unknown) Neuro-alert (units (un known) date) orient x3 no focal unknown) findings no nystagmus (unknown) (no (unknown) (unknown) No other (units (unkno wn) date) questions/concerns unknown) brought up to MA. (unknown) (no (unknown) (unknown) No real head (units (u nknown) date) pressure unknown) congestion does have some classic seasonal allergies and (unknown) (no (unknown) (unknown) Note (units (unkno wn) date) unknown) (unknown) (no (unknown) (unknown) Note: (units (unkno wn) date) unknown) (unknown) (no (unknown) (unknown) Notes (units (unkno wn) date) unknown) (unknown) (no (unknown) (unknown) Orders (units (unkno wn) date) unknown) (unknown) (no (unknown) (unknown) Other Menstrual (units (unknown) date) Period: Surgical unknown) Menopause (unknown) (no (unknown) (unknown) Oxygen Delivery (units (unknown) date) Method room air unknown) (unknown) (no (unknown) (unknown) PFSH (units (unkno wn) date) unknown) (unknown) (no (unknown) (unknown) Patient is (units (unkn own) date) describing about 3 unknown) weeks of dizziness that she describes in different (unknown) (no (unknown) (unknown) Patient: (units (unkno wn) date) Carrie Horn R unknown) MR#: [id number] (unknown) (no (unknown) (unknown) Plan (units (unkno wn) date) unknown) (unknown) (no (unknown) (unknown) Position (units (unkno wn) date) Sitting unknown) (unknown) (no (unknown) (unknown) Present for 3 (units ( unknown) date) weeks and thats unknown) how long the dizziness has been present. (unknown) (no (unknown) (unknown) Primary insomnia (units (unknown) date) (05/22/16) unknown) (unknown) (no (unknown) (unknown) Pulse 87 (units (un known) date) unknown) (unknown) (no (unknown) (unknown) Pulse Oximetry (units (unknown) date) (%) 98 unknown) (unknown) (no (unknown) (unknown) Pulse Source (units (u nknown) date) Monitor unknown) (unknown) (no (unknown) (unknown) R42 - Dizziness (units (unknown) date) and giddiness, unknown) R51.9 - Headache, unspecified (unknown) (no (unknown) (unknown) Reason For Visit (units (unknown) date) unknown) (unknown) (no (unknown) (unknown) Refilled (units (unkno wn) date) unknown) (unknown) (no (unknown) (unknown) Review/Discuss. (units (unknown) date) unknown) (unknown) (no (unknown) (unknown) She has had some (units (unknown) date) intermittent unknown) headaches that error nonspecific and not really (unknown) (no (unknown) (unknown) She is not (units (unk nown) date) feeling like she unknown) is going to pass out or lose consciousness does not (unknown) (no (unknown) (unknown) Signed By: (units (unk nown) date) <Electronically unknown) signed by Nasir Burdick MD> (unknown) (no (unknown) (unknown) Smoking Status: (units (unknown) date) Former smoker unknown) (unknown) (no (unknown) (unknown) Status post (units (un known) date) appendectomy unknown) (unknown) (no (unknown) (unknown) Status post (units (un known) date) cholecystectomy unknown) (unknown) (no (unknown) (unknown) Surgical History (units (unknown) date) (Reviewed 02/25/19 unknown) @ 05:05 by Mendoza Alejandro DO) (unknown) (no (unknown) (unknown) TAPES-CLEAR (units (un known) date) Allergy (Mild, unknown) Uncoded 08/28/21 15:21) (unknown) (no (unknown) (unknown) TSH w/ Reflex to (units (unknown) date) FT4 Today H91.90 - unknown) Unspecified hearing loss, unspecified ear, (unknown) (no (unknown) (unknown) This note may (units ( unknown) date) have been all or unknown) partially generated using voice recognition (unknown) (no (unknown) (unknown) Tobacco + (units (unkn own) date) Substance Use unknown) (unknown) (no (unknown) (unknown) Tobacco Status (units (unknown) date) unknown) (unknown) (no (unknown) (unknown) Uncomplicated (units ( unknown) date) opioid dependence unknown) (unknown) (no (unknown) (unknown) Visit Reasons: (units (unknown) date) Dizziness unknown) (unknown) (no (unknown) (unknown) Vitals (units (unkno wn) date) unknown) (unknown) (no (unknown) (unknown) Weight 77.167 (units (unknown) date) kg unknown) (unknown) (no (unknown) (unknown) Will get a (units (unk nown) date) noncontrast unknown) enhanced head CT to ensure there is no intercranial (unknown) (no (unknown) (unknown) Wonders if it (units ( unknown) date) might be unknown) chiropactic. (unknown) (no (unknown) (unknown) albuterol sulfate (units (unknown) date) 90 mcg/actuation unknown) aerosol inhaler (Ventolin HFA) 2 puff (unknown) (no (unknown) (unknown) alcohol intake: (units (unknown) date) never unknown) (unknown) (no (unknown) (unknown) and stands up (units ( unknown) date) suddenly or she unknown) gets up out of a chair quickly. S not getting (unknown) (no (unknown) (unknown) arteritis (units (unkn own) date) etcetera unknown) (unknown) (no (unknown) (unknown) azelastine 205.5 (units (unknown) date) mcg (0.15 %) nasal unknown) spray 1 spray NASAL BID #30 ml 10/28/18 [Rx (unknown) (no (unknown) (unknown) check (units (unkno wn) date) inflammatory unknown) markers for other things such as evidence of giant cell (unknown) (no (unknown) (unknown) chlorhexidine (units ( unknown) date) gluconate 0.12 % unknown) mouthwash 15 ml MM BID PRN ml 11/25/18 [History (unknown) (no (unknown) (unknown) cyclobenzaprine (units (unknown) date) 10 mg tablet 10 mg unknown) PO TID PRN #60 tab 04/19/21 [Rx Confirmed (unknown) (no (unknown) (unknown) ear, R42 - (units (unk nown) date) Dizziness and unknown) giddiness, R51.9 - Headache, unspecified (unknown) (no (unknown) (unknown) estradiol 2 mg (units (unknown) date) tablet 2 mg PO unknown) DAILY #90 tab 07/13/21 [Rx Confirmed 08/28/21] (unknown) (no (unknown) (unknown) feel like she is (units (unknown) date) drunk her unknown) intoxicated it is occurring more when she bends over (unknown) (no (unknown) (unknown) focused anywhere (units (unknown) date) she has had no unknown) change in vision speech swallowing no difficulty (unknown) (no (unknown) (unknown) have occurred. (units (unknown) date) If there are any unknown) questions, please contact the Medical Records (unknown) (no (unknown) (unknown) hydrocodone 5 (units ( unknown) date) mg-acetaminophen unknown) 325 mg tablet 1 - 2 tab PO Q4H PRN #70 tab (unknown) (no (unknown) (unknown) hyoscyamine (units (un known) date) sulfate 0.125 mg unknown) tablet 0.125 mg PO Q4H PRN #90 tab 07/04/21 [Rx (unknown) (no (unknown) (unknown) ibuprofen (units (unkn own) date) unknown) (unknown) (no (unknown) (unknown) ibuprofen 800 mg (units (unknown) date) tablet 800 mg PO unknown) TID PRN #150 tab 08/28/21 [Rx Confirmed (unknown) (no (unknown) (unknown) latex Allergy (units ( unknown) date) (Mild, Verified unknown) 08/28/21 15:21) (unknown) (no (unknown) (unknown) loratadine 10 mg (units (unknown) date) tablet 10 mg PO unknown) DAILY #90 tab 12/28/20 [Rx Confirmed 08/28/21] (unknown) (no (unknown) (unknown) lorazepam 1 mg (units (unknown) date) tablet 1 mg PO Q8H unknown) PRN #60 tab 08/17/21 [Rx Confirmed 08/28/21] (unknown) (no (unknown) (unknown) may occur. (units (unk nown) date) Occasional unknown) wrong-word or 'sound-alike' substitutions may have (unknown) (no (unknown) (unknown) naproxen Adverse (units (unknown) date) Reaction (Mild, unknown) Verified 08/28/21 15:21) (unknown) (no (unknown) (unknown) noticeable (units (unk nown) date) symptoms unknown) (unknown) (no (unknown) (unknown) occurred due to (units (unknown) date) the inherent unknown) limitations of voice recognition software. Please (unknown) (no (unknown) (unknown) omeprazole 40 mg (units (unknown) date) capsule,delayed unknown) release 40 mg PO DAILY #90 cap 03/27/21 [Rx (unknown) (no (unknown) (unknown) pattern (units (unkno wn) date) Intractability: unknown) not intractable Qualified Code(s): R51.9 - Headache, (unknown) (no (unknown) (unknown) read the note (units ( unknown) date) carefully and unknown) recognize, using context, where these substitutions (unknown) (no (unknown) (unknown) ritodrine Allergy (units (unknown) date) (Severe, Verified unknown) 08/28/21 15:21) (unknown) (no (unknown) (unknown) sertraline 100 mg (units (unknown) date) tablet 150 mg PO unknown) DAILY #135 tab 11/28/20 [Rx Confirmed (unknown) (no (unknown) (unknown) she takes an (units (u nknown) date) antihistamine for unknown) that which seems to be very effective for her (unknown) (no (unknown) (unknown) software. 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 (unknown) (no (unknown) (unknown) tetracycline (units (u nknown) date) Allergy (Mild, unknown) Verified 08/28/21 15:21) (unknown) (no (unknown) (unknown) trazodone 50 mg (units (unknown) date) tablet See Rx unknown) Instructions .ROUTE .COMPLEX #360 tab 06/19/21 [Rx (unknown) (no (unknown) (unknown) unspecified (units (un known) date) unknown) (unknown) (no (unknown) (unknown) unspecified (units (un known) date) unknown) (unknown) (no (unknown) (unknown) unspecified ear, (units (unknown) date) R42 - Dizziness unknown) and giddiness, R51.9 - Headache, unspecified (unknown) (no (unknown) (unknown) vancomycin (units (unk nown) date) Allergy unknown) (Intermediate, Verified 08/28/21 15:21) (unknown) (no (unknown) (unknown) were fine. (units (unk nown) date) unknown) (unknown) (no (unknown) (unknown) with her hearing (units (unknown) date) unknown) (unknown) (no (unknown) (unknown) worse but it is (units (unknown) date) also not getting unknown) better Result panel 4 (unknown) (no date) (unknown) (unknown) 0 /uL (unkn own) (unknown) (no date) (unknown) (unknown) 0.5 % (unkn own) (unknown) (no date) (unknown) (unknown) 12.1 g/dL (unkn own) (unknown) (no date) (unknown) (unknown) 13.6 % (unkn own) (unknown) (no date) (unknown) (unknown) 1800 /uL (unkn own) (unknown) (no date) (unknown) (unknown) 200 /uL (unkn own) (unknown) (no date) (unknown) (unknown) 233 X10 3/uL (unkn own) (unknown) (no date) (unknown) (unknown) 28.6 % (unkn own) (unknown) (no date) (unknown) (unknown) 29.2 PG (unkn own) (unknown) (no date) (unknown) (unknown) 3.3 % (unkn own) (unknown) (no date) (unknown) (unknown) 34.3 % (unkn own) (unknown) (no date) (unknown) (unknown) 35.3 % (unkn own) (unknown) (no date) (unknown) (unknown) 3800 /uL (unkn own) (unknown) (no date) (unknown) (unknown) 4.14 X10 6/uL (unkn own) (unknown) (no date) (unknown) (unknown) 400 /uL (unkn own) (unknown) (no date) (unknown) (unknown) 6.2 X10 3/uL (unkn own) (unknown) (no date) (unknown) (unknown) 6.8 % (unkn own) (unknown) (no date) (unknown) (unknown) 60.8 % (unkn own) (unknown) (no date) (unknown) (unknown) 85.2 fL (unkn own) Result panel 5 (unknown) (no date) (unknown) (unknown) > 60 mL/min (unkn own) (unknown) (no date) (unknown) (unknown) 0.3 mg/dL (unkn own) (unknown) (no date) (unknown) (unknown) 0.77 mg/dL (unkn own) (unknown) (no date) (unknown) (unknown) 1.4 mg/dL (unkn own) (unknown) (no date) (unknown) (unknown) 1.6 (units unknown) (unknown) (unknown) (no date) (unknown) (unknown) 105 mg/dL (unkn own) (unknown) (no date) (unknown) (unknown) 105 mmol/L (unkn own) (unknown) (no date) (unknown) (unknown) 138 mmol/L (unkn own) (unknown) (no date) (unknown) (unknown) 16 mg/dL (unkn own) (unknown) (no date) (unknown) (unknown) 2.8 g/dL (unkn own) (unknown) (no date) (unknown) (unknown) 20.8 (units unknown) (unknown) (unknown) (no date) (unknown) (unknown) 25 mmol/L (unkn own) (unknown) (no date) (unknown) (unknown) 29 IU/L (unkn own) (unknown) (no date) (unknown) (unknown) 29 IU/L (unkn own) (unknown) (no date) (unknown) (unknown) 3.9 mmol/L (unkn own) (unknown) (no date) (unknown) (unknown) 4.5 g/dL (unkn own) (unknown) (no date) (unknown) (unknown) 55 U/L (unkn own) (unknown) (no date) (unknown) (unknown) 7.3 g/dL (unkn own) (unknown) (no date) (unknown) (unknown) 9.3 mg/dL (unkn own) Result panel 6 (unknown) (no date) (unknown) (unknown) 0 /uL (unkn own) (unknown) (no date) (unknown) (unknown) 0.5 % (unkn own) (unknown) (no date) (unknown) (unknown) 11 MM/HR (unkn own) (unknown) (no date) (unknown) (unknown) 12.1 g/dL (unkn own) (unknown) (no date) (unknown) (unknown) 13.6 % (unkn own) (unknown) (no date) (unknown) (unknown) 1800 /uL (unkn own) (unknown) (no date) (unknown) (unknown) 200 /uL (unkn own) (unknown) (no date) (unknown) (unknown) 233 X10 3/uL (unkn own) (unknown) (no date) (unknown) (unknown) 28.6 % (unkn own) (unknown) (no date) (unknown) (unknown) 29.2 PG (unkn own) (unknown) (no date) (unknown) (unknown) 3.3 % (unkn own) (unknown) (no date) (unknown) (unknown) 34.3 % (unkn own) (unknown) (no date) (unknown) (unknown) 35.3 % (unkn own) (unknown) (no date) (unknown) (unknown) 3800 /uL (unkn own) (unknown) (no date) (unknown) (unknown) 4.14 X10 6/uL (unkn own) (unknown) (no date) (unknown) (unknown) 400 /uL (unkn own) (unknown) (no date) (unknown) (unknown) 6.2 X10 3/uL (unkn own) (unknown) (no date) (unknown) (unknown) 6.8 % (unkn own) (unknown) (no date) (unknown) (unknown) 60.8 % (unkn own) (unknown) (no date) (unknown) (unknown) 85.2 fL (unkn own) Result panel 7 (unknown) (no date) (unknown) (unknown) 0.82 uIU/mL (unkn own) Result panel 8 (unknown) (no date) (unknown) (unknown) 0 /uL (unkn own) (unknown) (no date) (unknown) (unknown) 0.5 % (unkn own) (unknown) (no date) (unknown) (unknown) 11 MM/HR (unkn own) (unknown) (no date) (unknown) (unknown) 12.1 g/dL (unkn own) (unknown) (no date) (unknown) (unknown) 13.6 % (unkn own) (unknown) (no date) (unknown) (unknown) 1800 /uL (unkn own) (unknown) (no date) (unknown) (unknown) 200 /uL (unkn own) (unknown) (no date) (unknown) (unknown) 233 X10 3/uL (unkn own) (unknown) (no date) (unknown) (unknown) 28.6 % (unkn own) (unknown) (no date) (unknown) (unknown) 29.2 PG (unkn own) (unknown) (no date) (unknown) (unknown) 3.3 % (unkn own) (unknown) (no date) (unknown) (unknown) 34.3 % (unkn own) (unknown) (no date) (unknown) (unknown) 35.3 % (unkn own) (unknown) (no date) (unknown) (unknown) 3800 /uL (unkn own) (unknown) (no date) (unknown) (unknown) 4.14 X10 6/uL (unkn own) (unknown) (no date) (unknown) (unknown) 400 /uL (unkn own) (unknown) (no date) (unknown) (unknown) 6.2 X10 3/uL (unkn own) (unknown) (no date) (unknown) (unknown) 6.8 % (unkn own) (unknown) (no date) (unknown) (unknown) 60.8 % (unkn own) (unknown) (no date) (unknown) (unknown) 85.2 fL (unkn own) Result panel 9 (unknown) (no date) (unknown) (unknown) > 60 mL/min (unkn own) (unknown) (no date) (unknown) (unknown) 0.3 mg/dL (unkn own) (unknown) (no date) (unknown) (unknown) 0.77 mg/dL (unkn own) (unknown) (no date) (unknown) (unknown) 1.4 mg/dL (unkn own) (unknown) (no date) (unknown) (unknown) 1.6 (units unknown) (unknown) (unknown) (no date) (unknown) (unknown) 105 mg/dL (unkn own) (unknown) (no date) (unknown) (unknown) 105 mmol/L (unkn own) (unknown) (no date) (unknown) (unknown) 138 mmol/L (unkn own) (unknown) (no date) (unknown) (unknown) 16 mg/dL (unkn own) (unknown) (no date) (unknown) (unknown) 2.8 g/dL (unkn own) (unknown) (no date) (unknown) (unknown) 20.8 (units unknown) (unknown) (unknown) (no date) (unknown) (unknown) 25 mmol/L (unkn own) (unknown) (no date) (unknown) (unknown) 29 IU/L (unkn own) (unknown) (no date) (unknown) (unknown) 29 IU/L (unkn own) (unknown) (no date) (unknown) (unknown) 3.9 mmol/L (unkn own) (unknown) (no date) (unknown) (unknown) 4.5 g/dL (unkn own) (unknown) (no date) (unknown) (unknown) 55 U/L (unkn own) (unknown) (no date) (unknown) (unknown) 7.3 g/dL (unkn own) (unknown) (no date) (unknown) (unknown) 9.3 mg/dL (unkn own) Result panel 10 (unknown) (no date) (unknown) (unknown) 0 /uL (unkn own) (unknown) (no date) (unknown) (unknown) 0.5 % (unkn own) (unknown) (no date) (unknown) (unknown) 11 MM/HR (unkn own) (unknown) (no date) (unknown) (unknown) 12.1 g/dL (unkn own) (unknown) (no date) (unknown) (unknown) 13.6 % (unkn own) (unknown) (no date) (unknown) (unknown) 1800 /uL (unkn own) (unknown) (no date) (unknown) (unknown) 200 /uL (unkn own) (unknown) (no date) (unknown) (unknown) 233 X10 3/uL (unkn own) (unknown) (no date) (unknown) (unknown) 28.6 % (unkn own) (unknown) (no date) (unknown) (unknown) 29.2 PG (unkn own) (unknown) (no date) (unknown) (unknown) 3.3 % (unkn own) (unknown) (no date) (unknown) (unknown) 34.3 % (unkn own) (unknown) (no date) (unknown) (unknown) 35.3 % (unkn own) (unknown) (no date) (unknown) (unknown) 3800 /uL (unkn own) (unknown) (no date) (unknown) (unknown) 4.14 X10 6/uL (unkn own) (unknown) (no date) (unknown) (unknown) 400 /uL (unkn own) (unknown) (no date) (unknown) (unknown) 6.2 X10 3/uL (unkn own) (unknown) (no date) (unknown) (unknown) 6.8 % (unkn own) (unknown) (no date) (unknown) (unknown) 60.8 % (unkn own) (unknown) (no date) (unknown) (unknown) 85.2 fL (unkn own) Result panel 11 (unknown) (no date) (unknown) (unknown) 0.82 uIU/mL (unkn own) Social History date description facility (no date) Ex-smoker (finding) [facility] Vital Signs date measurement value units +0000 BMI BMI 25.8 kg/m2 +0000 BP_diastolic BP_diastolic 92 mm[H g] +0000 BP_systolic BP_systolic 130 mm[Hg] +0000 heart_rate heart_rate 87 /min +0000 height_metric height_metric 172.72 cm +0000 height_standard height_standard 68 in +0000 weight_metric weight_metric 35 kg +0000 weight_standard weight_standard 77.17 lb
[2021-10-27] MEDS ORDERED: iohexoL-300 100 ML VIAL ONE (18:21)
--- NOTE | 2021-10-27 18:25 | CT Report ---
PROCEDURE: ANGIO HEAD W/WO INDICATIONS: L sided facial droop CONTRAST: IV CONTRAST: Optiray 320 ml: 80 PO CONTRAST: *NO PO CONTRAST TECHNIQUE: Precontrast 4.5 mm thick angled axial sections acquired from the foramen magnum to the vertex. Afte r the administration of intravenous contrast, 1 mm thick sections acquired through the [place] of [place] is. Postcontrast 4.5 mm thick sections then re-acquired from the foramen magnum to the vertex. 3-di mensional sftjrkc-poggppbzn-zsqfpbnpuf (MIP) and/or volume rendering reformats were acquired of the c entral intracranial vasculature. For radiation dose reduction, the following was used: automated ex posure control, adjustment of mA and/or kV according to patient size. COMPARISON: FINDINGS: Image quality: Excellent. Anterior circulation: Intracranial internal carotid arteries are normal in size and flow. The flow within the paired anterior cerebral arteries is normal and symmetric. The flow within the middle cer ebral arteries is normal and symmetric. The anterior communicating artery is seen. No aneurysms are seen. Posterior circulation: Visualized portions of the vertebral arteries demonstrate normal caliber, and join to form a normal appearing basilar artery. Flow within the posterior cerebral arteries is norm al and symmetric. No aneurysms are seen. CSF spaces: Ventricles are normal in size and shape. Basal cisterns are patent. No extra-axial flu id collections. Brain: No midline shift. No intracranial bleeds or masses. Garcia-white matter interface appears int act. Skull and face: Calvarium and facial bones appear intact, without suspicious lesions. Sinuses: Visualized sinuses and mastoids are clear. IMPRESSION: 1. CT head without acute intracranial abnormalities. No acute calvarial fractures. 2. Negative CT angiogram of the intracranial arterial vasculature. No evidence for occlusion, aneurys m, or hemodynamically significant stenosis. Non contrast findings reported verbally to Tracy Moody at 1820 hrs PST per [facility] stroke protocol. Reviewed by: Vikas Graves MD on 10/27/2021 6:24 PM PDT Approved by: Vikas Graves MD on 10/27/2021 6:24 PM PDT Station ID: [id number]
[2021-10-27 18:33] LABS: BASOPHILS % (AUTO) 0.4 %; EOSINOPHILS % (AUTO) 0.6 %; HCT - HEMATOCRIT 36.8 % (37.0-47.0); HGB - HEMOGLOBIN 12.4 g/dL (12.0-16.0); LYMPHOCYTES # (AUTO) 1.6 10^3/uL (1.5-3.5); LYMPHOCYTES % (AUTO) 24.1 %; MEAN CORPUSCULAR HEMOGLOBIN 28.8 pg (27.0-31.0); MEAN CORPUSCULAR HGB CONC 33.7 g/dL (32.0-36.0); MEAN CORPUSCULAR VOLUME 85.6 fL (81.0-99.0); MEAN PLATELET VOLUME 10.2 fL (7.9-10.8); MONOCYTES # (AUTO) 0.5 10^3/uL (0.0-1.0); MONOCYTES % (AUTO) 6.9 %; NEUTROPHILS # (AUTO) 4.6 10^3/uL (1.5-6.6); NEUTROPHILS % (AUTO) 67.9 %; PLT - PLATELET COUNT 242 10^3/uL (130-450); RED CELL DISTRIBUTION WIDTH 12.5 % (12.0-15.0); WHITE BLOOD COUNT 6.8 x10^3/uL (4.8-10.8)
--- NOTE | 2021-10-27 18:36 | CT Report ---
PROCEDURE: ANGIO NECK W INDICATIONS: L sided facial droop, L neck pain CONTRAST: IV CONTRAST: Optiray 320 ml: 80 PO CONTRAST: *NO PO CONTRAST TECHNIQUE: After the administration of intravenous contrast, 1.5 mm axial sections acquired from the aortic arch to the [place] of [place]. Coronal 3-D maximum intensity projection (MIP) and/or volume rendering ref ormats were then performed. For radiation dose reduction, the following was used: automated exposur e control, adjustment of mA and/or kV according to patient size. COMPARISON: None. FINDINGS: Image quality: Excellent. Carotid system: The great vessels demonstrate a conventional anatomy as they arise from the aortic a rch. The origins of the common carotid arteries appear patent. The common carotid arteries demonstr ate normal calibers and courses. The bifurcation regions appear normal bilaterally. The internal ca rotid arteries demonstrate normal caliber and course. Posterior circulation: The origins of the vertebral arteries appear patent. The more superior porti ons of the vertebral arteries demonstrate normal course and caliber. They join to form a normal appe aring basilar artery. Soft tissues: Visualized neck soft tissues demonstrate no suspicious abnormalities. The thyroid is normal in size and there are no incidental findings. Visualized lung apices are clear. Bones: No suspicious bony lesions. Visualized cervical spine appears normally aligned. Multilevel c ervical spondylosis most pronounced at C5-6 and C6-7. Craniocervical junction is intact. C1-C2 relati onship is preserved. IMPRESSION: Negative CT angiogram of the neck arterial vasculature. No evidence for hemodynamically significant s tenosis, occlusion, or dissection. Other chronic findings as above. The estimate of stenosis included in the report of the imaging study was calculated using the NASCET method CLINICAL RECOMMENDATION STATEMENTS: In patients <35 years with an ITN detected on CT, MRI, or extrathyroidal ultrasound, the Committee re commends further evaluation with dedicated thyroid ultrasound if the nodule is "e1 cm and has no susp icious imaging features, and if the patient has normal life expectancy. In patients "e35 years with an ITN detected on CT, MRI, or extrathyroidal ultrasound, the Committee r ecommends further evaluation with dedicated thyroid ultrasound if the nodule is "e1.5 cm and has no s uspicious imaging features, and if the patient has normal life expectancy. (ACR, 2014) Reviewed by: Vikas Graves MD on 10/27/2021 6:35 PM PDT Approved by: Vikas Graves MD on 10/27/2021 6:35 PM PDT Station ID: [id number]
--- NOTE | 2021-10-27 18:37 | XRAY Report ---
PROCEDURE: Chest 1 View X-Ray INDICATIONS: Chest Pain TECHNIQUE: One view of the chest was acquired. COMPARISON: None FINDINGS: Surgical changes and devices: None. Lungs and pleura: No pleural effusions or pneumothorax. Lungs are clear. Mediastinum: Mediastinal contours appear normal. Heart size is normal. Bones and chest wall: No suspicious bony lesions. Overlying soft tissues appear unremarkable. IMPRESSION: Chest without acute cardiopulmonary abnormalities. No focal airspace disease. Reviewed by: Vikas Graves MD on 10/27/2021 6:36 PM PDT Approved by: Vikas Graves MD on 10/27/2021 6:36 PM PDT Station ID: [id number]
[2021-10-27 18:44] LABS: ALBUMIN 4.1 g/dL (3.2-5.5); ALBUMIN/GLOBULIN RATIO 1.6 (1.0-2.2); ALKALINE PHOSPHATASE 52 IU/L (42-121); ALT ALANINE AMINOTRANSFERASE 34 IU/L (10-60); AST ASPARTATE AMINOTRANSFERASE 25 IU/L (10-42); BILIRUBIN,TOTAL < 0.2 mg/dL (0.2-1.0); BUN - BLOOD UREA NITROGEN 17 mg/dL (6-20); CALCIUM 9.1 mg/dL (8.5-10.3); CARBON DIOXIDE - CO2 26 mmol/L (21-32); CHLORIDE 100 mmol/L (101-111); CREATININE 0.9 mg/dL (0.4-1.0); ETOH - ETHANOL < 5.0 mg/dL; GFR - MDRD 65 (>89); GLUCOSE 108 mg/dL (70-100); LIPASE 28 U/L (22-51); POTASSIUM 3.9 mmol/L (3.5-5.0); SODIUM 135 mmol/L (135-145); TOTAL PROTEIN 6.7 g/dL (6.7-8.2)
[2021-10-27 18:51] LABS: BILIRUBIN,URINE NEGATIVE (NEGATIVE); GLUCOSE, URINE (UA) NEGATIVE (NEGATIVE); KETONES,URINE (UA) NEGATIVE (NEGATIVE); LEUKOCYTE ESTERASE, URINE NEGATIVE (NEGATIVE); NITRITE,URINE NEGATIVE (NEGATIVE); OCCULT BLOOD,URINE NEGATIVE (NEGATIVE); PROTEIN,URINE NEGATIVE (NEGATIVE); UROBILINOGEN,URINE 0.2 (NORMAL) E.U./dL (NORMAL)
[2021-10-27] MEDS ORDERED: ASPIRIN CHEW 81 MG TABLET PO STA (18:58)
[2021-10-27] MEDS ORDERED: METOCLOPRAMIDE 10 MG/2 ML VIAL IVP STA (18:58)
[2021-10-27 18:59] LABS: CLARITY,URINE CLEAR (CLEAR)
[2021-10-27 19:03] LABS: AMPHETAMINE SCREEN,URINE NEGATIVE (NEGATIVE); BARBITURATE SCREEN,UR NEGATIVE (NEGATIVE); BENZODIAZEPINES SCREEN, URINE NEGATIVE (NEGATIVE); COCAINE SCREEN URINE NEGATIVE (NEGATIVE); METHADONE SCREEN, URINE NEGATIVE (NEGATIVE); METHAMPHETAMINES SCREEN, URINE NEGATIVE (NEGATIVE); MUDS CUTOFF CONCENTRATIONS N; OPIATE SCREEN, URINE NEGATIVE (NEGATIVE); OXYCODONE SCREEN, URINE NEGATIVE (NEGATIVE); PROPOXYPHENE SCREEN, URINE NEGATIVE (NEGATIVE); THC CANNABINOID SCREEN, URINE POSITIVE (NEGATIVE); TRICYCLIC ANTIDEPRESSANT,URINE POSITIVE (NEGATIVE)
[2021-10-27] MEDS ORDERED: iohexoL-300 100 ML VIAL IVP ONE (19:07)
[2021-10-27 20:26] VITALS: BP 135/88
== END 2021-10-27 20:26 | disposition home or self-care (01) ==
LOC: EDUNIT# → ED 17:47
DX: R29.810 Facial weakness (principal); R47.81 Slurred speech
CPT/HCPCS: 36415; 70496; 70498; 71045; 80053; 80306; 80320; 81003; 83690; 84484; 85025; 93005; 96374; 99284; A9270; J2765; Q9967; 81001; 87086

== ENCOUNTER 2022-10-10 12:37 | Emergency (ER) | payer MEDICAID ==
--- NOTE | 2022-10-10 13:25 | XRAY Report ---
PROCEDURE: Hand 3 View LT INDICATIONS: Trauma TECHNIQUE: 4 views of the hand(s) acquired. COMPARISON: None. FINDINGS: Bones: No fractures or dislocations. No suspicious bony lesions. Soft tissues: No suspicious soft tissue calcifications or masses. IMPRESSION: No acute bony abnormality. Reviewed by: Rk Gallardo MD on 10/10/2022 1:24 PM PDT Approved by: Rk Gallardo MD on 10/10/2022 1:24 PM PDT Station ID: [id number]
--- NOTE | 2022-10-10 13:27 | ED Physician Documentation ---
History of Present Illness - Stated complaint Stated Complaint: LFT PINKY/RING FIN INJ - Chief complaint Chief Complaint: Trauma Ext - Additonal information Additional information: 57-year-old female presents the emergency department for evaluation of acute left small finger pain. Reports slamming her finger in a car door yesterday. She states that she has had multiple injuries to this hand and has required surgery in the past. She does have a subungual hematoma under the left small nail. She is requesting trepanation. She is ambidextrous. Review of Systems Constitutional: reports: Reviewed and negative Musculoskeletal: reports: Extremity pain PD PAST MEDICAL HISTORY - Past Medical History Past Medical History: Yes Cardiovascular: None Respiratory: None Neuro: None Endocrine/Autoimmune: None GI: None PARTS LISTER: None : None HEENT: None Psych: Depression, Anxiety Musculoskeletal: None Derm: None - Past Surgical History Past Surgical History: Yes General: Cholecystectomy, Appendectomy HEENT: Other - Present Medications Home Medications: Ambulatory Orders Medication Instructions Recorded Confirmed Albuterol Sulfate [Proair 1 puffs INH Q4HR PRN 10/20/21 10/10/22 Digihaler] Omeprazole 40 mg PO DAILY 10/20/21 10/10/22 estradioL [Estradiol] 2 mg PO DAILY 10/20/21 10/10/22 Sertraline HCl [Zoloft] 50 mg PO TID 10/27/21 10/10/22 buPROPion HCL [Bupropion HCl] 100 mg PO BID 10/27/21 10/10/22 Cyclobenzaprine [Flexeril] 10 mg PO TID PRN 10/10/22 10/10/22 Hyoscyamine [Levsin] 0.125 mg SL DAILY 10/10/22 10/10/22 LORazepam [Lorazepam] 1 mg PO BID PRN 10/10/22 10/10/22 Loratadine [All Day Allergy Relief] 10 mg PO DAILY 10/10/22 10/10/22 Sumatriptan Succinate [Imitrex] 50 mg PO DAILY PRN 10/10/22 10/10/22 oxyBUTYnin chloride [Oxybutynin 5 mg PO BID 10/10/22 10/10/22 Chloride] - Allergies Allergies/Adverse Reactions: Allergies Allergy/AdvReac Type Severity Reaction Status Date / Time terbutaline [From Brethine] Allergy Rash Verified 10/10/22 12:47 Tetracyclines Allergy Rash Verified 10/10/22 12:47 latex AdvReac Rash Verified 10/10/22 12:47 vancomycin AdvReac Rash Verified 10/10/22 12:47 - Social History Does the pt smoke?: No Smoking Status: Never smoker Does the pt drink ETOH?: Yes Does the pt have substance abuse?: Yes - Immunizations Immunizations are current?: Yes PD ED PE EXPANDED - Extremities Extremities: Left hand (40% left subungual hematoma small finger. Tenderness to palpation of the small finger at the PIP and DIP joint. Unable to flex or extend at the PIP joint. No obvious deformity. Neurovascularly intact otherwise. 2+ radial pulse) Results - Vitals Vitals: Vital Signs - 24 hr 10/10/22 12:43 Temperature 36.3 C L Heart Rate 64 Respiratory 16 Rate Blood Pressure 141/64 H O2 Saturation 97 Oxygen O2 Source Room air - Rads (name of study) left hand Relevant Findings:: Final report received (No acute bony abnormality) Procedures - General procedure General procedure: Left small finger nail was trephinated using electrocautery at the bedside. 2 small bur holes were placed within the nailbed with free drainage of blood. Patient reported immediate relief of pain. PD Medical Decision Making - ED course Complexity details: reviewed results, considered differential, d/w patient ED course: 57-year-old female presents emergency department for evaluation of acute left small finger pain. Reports slamming her finger in a car door yesterday. She presents with about 40% subungual hematoma to the left small nailbed. This was trephinated at the bedside with 2 bur holes which freely drained some blood. Patient reported improved pain following the trephination. However on exam she has limited ability to flex the finger at the PIP joint. The x-ray of the hand and finger as interpreted by the radiologist shows no acute fracture. I suspect the patient may have minor tendon injury versus significant contusion limiting movement at this time. She will be placed in aluminum finger splint. She is already scheduled to see her hand surgeon Dr. Hawkins in follow-up next Saturday. I advised the patient that if her pain inability to move the finger was not markedly improved at that time he may want to consider further evaluation for possible occult tendon injury. Given the lack of obvious bony findings on x-ray I am recommending [id number] Tylenol or Motrin for analgesia. The usual emergent return precautions for worsening symptoms was discussed. Departure - Departure Disposition: 01 Home, Self Care Clinical Impression: Hematoma, subungual, finger, left Qualifiers: Encounter type: initial encounter Qualified Code(s): S60.10XA - Contusion of unspecified finger with damage to nail, initial encounter Contusion of left little finger Qualifiers: Encounter type: initial encounter Damage to nail status: with damage Qualified Code(s): S60.152A - Contusion of left little finger with damage to nail, initial encounter Condition: Stable Record reviewed to determine appropriate education?: Yes Comments: Carrie the x-ray of your hand does not show an obvious broken bone to the little finger or hand at all. However you did have a fair amount of bruising to this finger. We did trephinate the nail to drain it of blood which seems to have improved the pain. Please place a small amount of bacitracin or antibiotic ointment over the trephination holes. I cannot rule out a tendon injury at this time given your inability to flex the finger at the middle joint. This could be due to simple contusion and swelling within the finger. I do recommend that you wear an aluminum finger splint for about the next week. You can take it off to shower or bathe. However if your symptoms or not markedly better by the time you see Dr. Hawkins in follow-up, he may want to evaluate for the possibility of occult tendon injury. In general I do recommend that you take ibuprofen and Tylenol [id number] for discomfort. Return to the ER if you have any other emergent symptoms.
[2022-10-10 13:37] VITALS: BP 133/61
--- OUTSIDE RECORDS SUMMARY | 2022-10-10 13:55 | EXTERNAL MEDICAL SUMMARY RPT | Continuity of Care Document ---
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 Name Role Phone Nasir Burdick Unavailable Unavailable Allergies and Intolerances date description facility type (no date) [facility] (unknown) Medications date description facility 2022-08-17 00:00 Hyoscyamine Sulfate [facility] 2022-07-27 00:00 [facility] 2022-08-21 00:00 [facility] 2022-10-08 00:00 [facility] 2022-08-06 00:00 Sumatriptan Succinate [facility] 2022-08-21 00:00 Cyclobenzaprine [facility] 2022-09-06 00:00 Cyclobenzaprine [facility] 2022-08-06 00:00 Hydrocodone-Acetaminophen [facility] 2022-09-06 00:00 Hydrocodone-Acetaminophen [facility] 2022-10-08 00:00 HydrocodoneAcetaminophen [facility] 2022-10-08 00:00 Oxybutynin Chloride [facility] Results/Labs test date author facility value unit interpretation Result panel 1 (unknown) (no date) (unknown) (unknown) (no value) (units unknown) (unknown) (unknown) (no date) (unknown) (unknown) '[facility]' (units unknown) (unknown) (unknown) (no date) (unknown) (unknown) 06/11/22 [Rx Confirmed 08/06/22] (units unknown) (unknown) (unknown) (no date) (unknown) (unknown) 08/06/22 (units unknown) (unknown) (unknown) (no date) (unknown) (unknown) 08/06/22] (units unknown) (unknown) (unknown) (no date) (unknown) (unknown) 03/12/22 [Hist ory Confirmed 08/06/22] (units unknown) (unknown) (unknown) (no date) (unknown) (unknown) 04/04/22 [Rx Confirmed 08/06/22] (units unknown) (unknown) (unknown) (no date) (unknown) (unknown) [id number] (units unknown) (unknown) (unknown) (no date) (unknown) (unknown) Age/Sex: 57 / F Date of Service: (units unknown) (unknown) (unknown) (no date) (unknown) (unknown) Agitated (units unknown) (unknown) (unknown) (no date) (unknown) (unknown) Allergies (units unknown) (unknown) (unknown) (no date) (unknown) (unknown) SHEILA Garces [id number] (units unknown) (unknown) (unknown) (no date) (unknown) (unknown) Anxiety (11/22/16) ( units unknown) (unknown) (unknown) (no date) (unknown) (unknown) Attending Dr: Nasir Burdick MD (units unknown) (unknown) (unknown) (no date) (unknown) (unknown) Bipolar I disorder ( units unknown) (unknown) (unknown) (no date) (unknown) (unknown) Chronic back pain (u nits unknown) (unknown) (unknown) (no date) (unknown) (unknown) Chronic left shoulder pain (units unknown) (unknown) (unknown) (no date) (unknown) (unknown) Chronic pain o f left knee (units unknown) (unknown) (unknown) (no date) (unknown) (unknown) Chronic pain syndrome (units unknown) (unknown) (unknown) (no date) (unknown) (unknown) Confirmed 08/06/22] (units unknown) (unknown) (unknown) (no date) (unknown) (unknown) : 5 Acct:[id number] (units unknown) (unknown) (unknown) (no date) (unknown) (unknown) Dept at . (units unknown) (unknown) (unknown) (no date) (unknown) (unknown) Documented By: Nasir Burdick MD 08/06/22 1349 (units unknown) (unknown) (unknown) (no date) (unknown) (unknown) Draft (units unknown) (unknown) (unknown) (no date) (unknown) (unknown) Dyspareunia in female (05/22/16) (units unknown) (unknown) (unknown) (no date) (unknown) (unknown) [facility] (units unknown) (unknown) (unknown) (no date) (unknown) (unknown) GIVE BENADRYL FIRST (units unknown) (unknown) (unknown) (no date) (unknown) (unknown) H/O migraine (units unknown) (unknown) (unknown) (no date) (unknown) (unknown) HEART ATTACK (units unknown) (unknown) (unknown) (no date) (unknown) (unknown) HIVES/VOMIT (units unknown) (unknown) (unknown) (no date) (unknown) (unknown) Hearing loss (units unknown) (unknown) (unknown) (no date) (unknown) (unknown) History of bow el resection (units unknown) (unknown) (unknown) (no date) (unknown) (unknown) IF ON AWHILE O R IN MOUTH (DENTAL) (units unknown) (unknown) (unknown) (no date) (unknown) (unknown) Intake Note: (units unknown) (unknown) (unknown) (no date) (unknown) (unknown) Intake perform ed by: Lavinia Dutton (units unknown) (unknown) (unknown) (no date) (unknown) (unknown) Intake (units unknown) (unknown) (unknown) (no date) (unknown) (unknown) Intake- [place] [facility] (units unknown) (unknown) (unknown) (no date) (unknown) (unknown) Internal Medic ine Office Visit (units unknown) (unknown) (unknown) (no date) (unknown) (unknown) Last Menstural Cycle + Details (units unknown) (unknown) (unknown) (no date) (unknown) (unknown) Loc: [facility] (units unknown) (unknown) (unknown) (no date) (unknown) (unknown) 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 (units unknown) (unknown) (unknown) (no date) (unknown) (unknown) Medical Histor y (Updated 11/07/21 @ 14:37 by Nasir Burdick MD) (units unknown) (unknown) (unknown) (no date) (unknown) (unknown) Medications (units unknown) (unknown) (unknown) (no date) (unknown) (unknown) Methamphetamine use (units unknown) (unknown) (unknown) (no date) (unknown) (unknown) Mixed incontinence ( units unknown) (unknown) (unknown) (no date) (unknown) (unknown) Other Menstrua l Period: Surgical Menopause (units unknown) (unknown) (unknown) (no date) (unknown) (unknown) PFSH (units unknown) (unknown) (unknown) (no date) (unknown) (unknown) Patient: Carrie Horn MR#: [id number] (units unknown) (unknown) (unknown) (no date) (unknown) (unknown) Primary insomn ia (05/22/16) (units unknown) (unknown) (unknown) (no date) (unknown) (unknown) Reason For Visit (un its unknown) (unknown) (unknown) (no date) (unknown) (unknown) Recheck Meds (units unknown) (unknown) (unknown) (no date) (unknown) (unknown) Review/Discuss. (uni ts unknown) (unknown) (unknown) (no date) (unknown) (unknown) Signed By: (units unknown) (unknown) (unknown) (no date) (unknown) (unknown) Smoking Status : Former smoker (units unknown) (unknown) (unknown) (no date) (unknown) (unknown) Status post appendectomy (units unknown) (unknown) (unknown) (no date) (unknown) (unknown) Status post cholecystectomy (units unknown) (unknown) (unknown) (no date) (unknown) (unknown) Surgical Histo ry (units unknown) (unknown) (unknown) (no date) (unknown) (unknown) TAPES-CLEAR Al lergy (Mild, Uncoded 08/06/22 13:50) (units unknown) (unknown) (unknown) (no date) (unknown) (unknown) This note may have been all or partially generated using voice recognition (units unknown) (unknown) (unknown) (no date) (unknown) (unknown) Tobacco + Subs tance Use (units unknown) (unknown) (unknown) (no date) (unknown) (unknown) Tobacco Status (unit s unknown) (unknown) (unknown) (no date) (unknown) (unknown) Uncomplicated opioid dependence (units unknown) (unknown) (unknown) (no date) (unknown) (unknown) VOMITING (units unknown) (unknown) (unknown) (no date) (unknown) (unknown) Visit Reasons: Recheck Meds (units unknown) (unknown) (unknown) (no date) (unknown) (unknown) [Rx Confirmed 08/06/22] (units unknown) (unknown) (unknown) (no date) (unknown) (unknown) albuterol sulf ate 90 mcg/actuation aerosol inhaler (Ventolin HFA) 2 puff (units unknown) (unknown) (unknown) (no date) (unknown) (unknown) alcohol intake : never (units unknown) (unknown) (unknown) (no date) (unknown) (unknown) aspirin 81 mg tablet,delayed release (Adult Low Dose Aspirin) 81 mg PO DAILY (units unknown) (unknown) (unknown) (no date) (unknown) (unknown) azelastine 205 .5 mcg (0.15 %) nasal spray 1 spray intranasal BID #30 mL 10/28/18 (units unknown) (unknown) (unknown) (no date) (unknown) (unknown) chlorhexidine gluconate 0.12 % mouthwash 15 ml mucous membrane BID PRN prevent (units unknown) (unknown) (unknown) (no date) (unknown) (unknown) cyclobenzaprin e 10 mg tablet 10 mg PO TID PRN muscle spasm #60 tabs 07/02/22 [Rx (units unknown) (unknown) (unknown) (no date) (unknown) (unknown) estradiol 2 mg tablet 2 mg PO DAILY #90 tabs 03/12/22 [Rx Confirmed 08/06/22] (units unknown) (unknown) (unknown) (no date) (unknown) (unknown) gum disease #1 5 mL 03/12/22 [Rx Confirmed 08/06/22] (units unknown) (unknown) (unknown) (no date) (unknown) (unknown) have occurred. If there are any questions, please contact the Medical Records (units unknown) (unknown) (unknown) (no date) (unknown) (unknown) hydrocodone 5 mg-acetaminophen 325 mg tablet 1 - 2 tab PO Q4H PRN pain #70 tabs (units unknown) (unknown) (unknown) (no date) (unknown) (unknown) hyoscyamine lilly lfate 0.125 mg tablet 0.125 mg PO Q4H PRN abdominal pain #90 tabs (units unknown) (unknown) (unknown) (no date) (unknown) (unknown) ibuprofen 800 mg tablet 800 mg PO TID PRN pain #150 tabs 03/12/22 [Rx Confirmed (units unknown) (unknown) (unknown) (no date) (unknown) (unknown) inhalation Q2H P PRN shortness of breath or wheezing #2 inhalations 06/26/21 [Rx (units unknown) (unknown) (unknown) (no date) (unknown) (unknown) latex Allergy (Mild, Verified 08/06/22 13:50) (units unknown) (unknown) (unknown) (no date) (unknown) (unknown) loratadine 10 mg tablet 10 mg PO DAILY #90 tabs 03/12/22 [Rx Confirmed 08/06/22] (units unknown) (unknown) (unknown) (no date) (unknown) (unknown) lorazepam 1 mg tablet 1 mg PO Q8H PRN anxiety #60 tabs 07/27/22 [Rx Confirmed (units unknown) (unknown) (unknown) (no date) (unknown) (unknown) may occur. Occasional wrong-word or 'sound-alike' substitutions may have (units unknown) (unknown) (unknown) (no date) (unknown) (unknown) multivitamin-C a-iron -minerals 18 mg-0.4 mg tablet tab PO 03/12/22 [History (units unknown) (unknown) (unknown) (no date) (unknown) (unknown) naproxen Adver se Reaction (Mild, Verified 08/06/22 13:50) (units unknown) (unknown) (unknown) (no date) (unknown) (unknown) occurred due t o the inherent limitations of voice recognition software. Please (units unknown) (unknown) (unknown) (no date) (unknown) (unknown) omeprazole 40 mg capsule,delayed release 40 mg PO DAILY #90 caps 03/12/22 [Rx (units unknown) (unknown) (unknown) (no date) (unknown) (unknown) read the note carefully and recognize, using context, where these substitutions (units unknown) (unknown) (unknown) (no date) (unknown) (unknown) risper Adverse Reaction (Uncoded 08/06/22 13:50) (units unknown) (unknown) (unknown) (no date) (unknown) (unknown) ritodrine Nicanor rgy (Severe, Verified 08/06/22 13:50) (units unknown) (unknown) (unknown) (no date) (unknown) (unknown) sertraline 100 mg tablet 100 mg PO DAILY #90 tabs 01/09/22 [Rx Confirmed (units unknown) (unknown) (unknown) (no date) (unknown) (unknown) software. 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 (units unknown) (unknown) (unknown) (no date) (unknown) (unknown) substance use type: does not use (units unknown) (unknown) (unknown) (no date) (unknown) (unknown) sucralfate 1 g dawson tablet 1 g PO QACHS #120 tabs 03/12/22 [Rx Confirmed 08/06/22] (units unknown) (unknown) (unknown) (no date) (unknown) (unknown) tetracycline A llergy (Mild, Verified 08/06/22 13:50) (units unknown) (unknown) (unknown) (no date) (unknown) (unknown) trazodone 50 m g tablet See Rx Instructions .Route .COMPLEX #360 tabs 03/12/22 (units unknown) (unknown) (unknown) (no date) (unknown) (unknown) vancomycin All ergy (Intermediate, Verified 08/06/22 13:50) (units unknown) (unknown) Result panel 2 (unknown) (no date) (unknown) (unknown) (no value) (units unknown) (unknown) (unknown) (no date) (unknown) (unknown) '[facility]' (units unknown) (unknown) (unknown) (no date) (unknown) (unknown) 06/11/22 [Rx Confirmed 08/06/22] (units unknown) (unknown) (unknown) (no date) (unknown) (unknown) 08/06/22 (units unknown) (unknown) (unknown) (no date) (unknown) (unknown) 08/06/22] (units unknown) (unknown) (unknown) (no date) (unknown) (unknown) 03/12/22 [Hist ory Confirmed 08/06/22] (units unknown) (unknown) (unknown) (no date) (unknown) (unknown) 04/04/22 [Rx Confirmed 08/06/22] (units unknown) (unknown) (unknown) (no date) (unknown) (unknown) 13:58 (units unknown) (unknown) (unknown) (no date) (unknown) (unknown) [id number] (units unknown) (unknown) (unknown) (no date) (unknown) (unknown) Age/Sex: 57 / F Date of Service: (units unknown) (unknown) (unknown) (no date) (unknown) (unknown) Agitated (units unknown) (unknown) (unknown) (no date) (unknown) (unknown) Allergies (units unknown) (unknown) (unknown) (no date) (unknown) (unknown) [place] [address] (units unknown) (unknown) (unknown) (no date) (unknown) (unknown) Anxiety (11/22/16) ( units unknown) (unknown) (unknown) (no date) (unknown) (unknown) Attending Dr: Nasir Burdick MD (units unknown) (unknown) (unknown) (no date) (unknown) (unknown) BMI 25.7 (units unknown) (unknown) (unknown) (no date) (unknown) (unknown) BP 120/88 (units unknown) (unknown) (unknown) (no date) (unknown) (unknown) Bipolar I disorder ( units unknown) (unknown) (unknown) (no date) (unknown) (unknown) Blood Pressure Location Lt brachial (units unknown) (unknown) (unknown) (no date) (unknown) (unknown) Chronic back pain (u nits unknown) (unknown) (unknown) (no date) (unknown) (unknown) Chronic left shoulder pain (units unknown) (unknown) (unknown) (no date) (unknown) (unknown) Chronic pain o f left knee (units unknown) (unknown) (unknown) (no date) (unknown) (unknown) Chronic pain syndrome (units unknown) (unknown) (unknown) (no date) (unknown) (unknown) Confirmed 08/06/22] (units unknown) (unknown) (unknown) (no date) (unknown) (unknown) : 5 Acct:[id number] (units unknown) (unknown) (unknown) (no date) (unknown) (unknown) Dept at . (units unknown) (unknown) (unknown) (no date) (unknown) (unknown) Discuss Migrai rose. States shes had 2 in the last month. (units unknown) (unknown) (unknown) (no date) (unknown) (unknown) Discuss. (units unknown) (unknown) (unknown) (no date) (unknown) (unknown) Documented By: Nasir Burdick MD 08/06/22 1349 (units unknown) (unknown) (unknown) (no date) (unknown) (unknown) Draft (units unknown) (unknown) (unknown) (no date) (unknown) (unknown) Dyspareunia in female (05/22/16) (units unknown) (unknown) (unknown) (no date) (unknown) (unknown) [facility] (units unknown) (unknown) (unknown) (no date) (unknown) (unknown) Follow Up XRay - Hand. (units unknown) (unknown) (unknown) (no date) (unknown) (unknown) GIVE BENADRYL FIRST (units unknown) (unknown) (unknown) (no date) (unknown) (unknown) H/O migraine (units unknown) (unknown) (unknown) (no date) (unknown) (unknown) HEART ATTACK (units unknown) (unknown) (unknown) (no date) (unknown) (unknown) HIVES/VOMIT (units unknown) (unknown) (unknown) (no date) (unknown) (unknown) Hearing loss (units unknown) (unknown) (unknown) (no date) (unknown) (unknown) Height 5 ft 8 in (un its unknown) (unknown) (unknown) (no date) (unknown) (unknown) History of bow el resection (units unknown) (unknown) (unknown) (no date) (unknown) (unknown) IF ON AWHILE O R IN MOUTH (DENTAL) (units unknown) (unknown) (unknown) (no date) (unknown) (unknown) Intake Note: (units unknown) (unknown) (unknown) (no date) (unknown) (unknown) Intake perform ed by: Lavinia Dutton (units unknown) (unknown) (unknown) (no date) (unknown) (unknown) Intake (units unknown) (unknown) (unknown) (no date) (unknown) (unknown) Intake- [place] [facility] Staff (units unknown) (unknown) (unknown) (no date) (unknown) (unknown) Internal Medic ine Office Visit (units unknown) (unknown) (unknown) (no date) (unknown) (unknown) Last Menstural Cycle + Details (units unknown) (unknown) (unknown) (no date) (unknown) (unknown) Loc: [facility] (units unknown) (unknown) (unknown) (no date) (unknown) (unknown) 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 (units unknown) (unknown) (unknown) (no date) (unknown) (unknown) Medical Histor y (Updated 11/07/21 @ 14:37 by Nasir Burdick MD) (units unknown) (unknown) (unknown) (no date) (unknown) (unknown) Medications (units unknown) (unknown) (unknown) (no date) (unknown) (unknown) Methamphetamine use (units unknown) (unknown) (unknown) (no date) (unknown) (unknown) Mixed incontinence ( units unknown) (unknown) (unknown) (no date) (unknown) (unknown) Other Menstrua l Period: Surgical Menopause (units unknown) (unknown) (unknown) (no date) (unknown) (unknown) Oxygen Deliver y Method room air (units unknown) (unknown) (unknown) (no date) (unknown) (unknown) PFSH (units unknown) (unknown) (unknown) (no date) (unknown) (unknown) Patient: Carrie Horn MR#: [id number] (units unknown) (unknown) (unknown) (no date) (unknown) (unknown) Position Sitting (un its unknown) (unknown) (unknown) (no date) (unknown) (unknown) Primary insomn ia (05/22/16) (units unknown) (unknown) (unknown) (no date) (unknown) (unknown) Pulse 88 (units unknown) (unknown) (unknown) (no date) (unknown) (unknown) Pulse Oximetry (%) 99 (units unknown) (unknown) (unknown) (no date) (unknown) (unknown) Pulse Source Monitor (units unknown) (unknown) (unknown) (no date) (unknown) (unknown) Reason For Visit (un its unknown) (unknown) (unknown) (no date) (unknown) (unknown) Recheck Meds (units unknown) (unknown) (unknown) (no date) (unknown) (unknown) Refill Reedy/A PAP + Inhaler. (units unknown) (unknown) (unknown) (no date) (unknown) (unknown) Review/Discuss. (uni ts unknown) (unknown) (unknown) (no date) (unknown) (unknown) Signed By: (units unknown) (unknown) (unknown) (no date) (unknown) (unknown) Smoking Status : Former smoker (units unknown) (unknown) (unknown) (no date) (unknown) (unknown) Status post appendectomy (units unknown) (unknown) (unknown) (no date) (unknown) (unknown) Status post cholecystectomy (units unknown) (unknown) (unknown) (no date) (unknown) (unknown) Surgical Histo ry (units unknown) (unknown) (unknown) (no date) (unknown) (unknown) TAPES-CLEAR Al lergy (Mild, Uncoded 08/06/22 13:50) (units unknown) (unknown) (unknown) (no date) (unknown) (unknown) This note may have been all or partially generated using voice recognition (units unknown) (unknown) (unknown) (no date) (unknown) (unknown) Tobacco + Subs tance Use (units unknown) (unknown) (unknown) (no date) (unknown) (unknown) Tobacco Status (unit s unknown) (unknown) (unknown) (no date) (unknown) (unknown) Took moms med that started with a F. Was sublingual. (units unknown) (unknown) (unknown) (no date) (unknown) (unknown) Uncomplicated opioid dependence (units unknown) (unknown) (unknown) (no date) (unknown) (unknown) VOMITING (units unknown) (unknown) (unknown) (no date) (unknown) (unknown) Visit Reasons: Recheck Meds (units unknown) (unknown) (unknown) (no date) (unknown) (unknown) Vitals (units unknown) (unknown) (unknown) (no date) (unknown) (unknown) Weight 169 lb 9 oz ( units unknown) (unknown) (unknown) (no date) (unknown) (unknown) [Rx Confirmed 08/06/22] (units unknown) (unknown) (unknown) (no date) (unknown) (unknown) albuterol sulf ate 90 mcg/actuation aerosol inhaler (Ventolin HFA) 2 puff (units unknown) (unknown) (unknown) (no date) (unknown) (unknown) alcohol intake : never (units unknown) (unknown) (unknown) (no date) (unknown) (unknown) aspirin 81 mg tablet,delayed release (Adult Low Dose Aspirin) 81 mg PO DAILY (units unknown) (unknown) (unknown) (no date) (unknown) (unknown) azelastine 205 .5 mcg (0.15 %) nasal spray 1 spray intranasal BID #30 mL 10/28/18 (units unknown) (unknown) (unknown) (no date) (unknown) (unknown) chlorhexidine gluconate 0.12 % mouthwash 15 ml mucous membrane BID PRN prevent (units unknown) (unknown) (unknown) (no date) (unknown) (unknown) cyclobenzaprin e 10 mg tablet 10 mg PO TID PRN muscle spasm #60 tabs 07/02/22 [Rx (units unknown) (unknown) (unknown) (no date) (unknown) (unknown) estradiol 2 mg tablet 2 mg PO DAILY #90 tabs 03/12/22 [Rx Confirmed 08/06/22] (units unknown) (unknown) (unknown) (no date) (unknown) (unknown) gum disease #1 5 mL 03/12/22 [Rx Confirmed 08/06/22] (units unknown) (unknown) (unknown) (no date) (unknown) (unknown) have occurred. If there are any questions, please contact the Medical Records (units unknown) (unknown) (unknown) (no date) (unknown) (unknown) hydrocodone 5 mg-acetaminophen 325 mg tablet 1 - 2 tab PO Q4H PRN pain #70 tabs (units unknown) (unknown) (unknown) (no date) (unknown) (unknown) hyoscyamine lilly lfate 0.125 mg tablet 0.125 mg PO Q4H PRN abdominal pain #90 tabs (units unknown) (unknown) (unknown) (no date) (unknown) (unknown) ibuprofen 800 mg tablet 800 mg PO TID PRN pain #150 tabs 03/12/22 [Rx Confirmed (units unknown) (unknown) (unknown) (no date) (unknown) (unknown) inhalation Q2H P PRN shortness of breath or wheezing #2 inhalations 06/26/21 [Rx (units unknown) (unknown) (unknown) (no date) (unknown) (unknown) latex Allergy (Mild, Verified 08/06/22 13:50) (units unknown) (unknown) (unknown) (no date) (unknown) (unknown) loratadine 10 mg tablet 10 mg PO DAILY #90 tabs 03/12/22 [Rx Confirmed 08/06/22] (units unknown) (unknown) (unknown) (no date) (unknown) (unknown) lorazepam 1 mg tablet 1 mg PO Q8H PRN anxiety #60 tabs 07/27/22 [Rx Confirmed (units unknown) (unknown) (unknown) (no date) (unknown) (unknown) may occur. Occasional wrong-word or 'sound-alike' substitutions may have (units unknown) (unknown) (unknown) (no date) (unknown) (unknown) multivitamin-C a-iron -minerals 18 mg-0.4 mg tablet tab PO 03/12/22 [History (units unknown) (unknown) (unknown) (no date) (unknown) (unknown) naproxen Adver se Reaction (Mild, Verified 08/06/22 13:50) (units unknown) (unknown) (unknown) (no date) (unknown) (unknown) occurred due t o the inherent limitations of voice recognition software. Please (units unknown) (unknown) (unknown) (no date) (unknown) (unknown) omeprazole 40 mg capsule,delayed release 40 mg PO DAILY #90 caps 03/12/22 [Rx (units unknown) (unknown) (unknown) (no date) (unknown) (unknown) read the note carefully and recognize, using context, where these substitutions (units unknown) (unknown) (unknown) (no date) (unknown) (unknown) risper Adverse Reaction (Uncoded 08/06/22 13:50) (units unknown) (unknown) (unknown) (no date) (unknown) (unknown) ritodrine Nicanor rgy (Severe, Verified 08/06/22 13:50) (units unknown) (unknown) (unknown) (no date) (unknown) (unknown) sertraline 100 mg tablet 100 mg PO DAILY #90 tabs 01/09/22 [Rx Confirmed (units unknown) (unknown) (unknown) (no date) (unknown) (unknown) software. 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 (units unknown) (unknown) (unknown) (no date) (unknown) (unknown) substance use type: does not use (units unknown) (unknown) (unknown) (no date) (unknown) (unknown) sucralfate 1 g dawson tablet 1 g PO QACHS #120 tabs 03/12/22 [Rx Confirmed 08/06/22] (units unknown) (unknown) (unknown) (no date) (unknown) (unknown) tetracycline A llergy (Mild, Verified 08/06/22 13:50) (units unknown) (unknown) (unknown) (no date) (unknown) (unknown) trazodone 50 m g tablet See Rx Instructions .Route .COMPLEX #360 tabs 03/12/22 (units unknown) (unknown) (unknown) (no date) (unknown) (unknown) vancomycin All ergy (Intermediate, Verified 08/06/22 13:50) (units unknown) (unknown) Result panel 3 (unknown) (no date) (unknown) (unknown) (no value) (units unknown) (unknown) (unknown) (no date) (unknown) (unknown) '[facility]IAM' (units unknown) (unknown) (unknown) (no date) (unknown) (unknown) 'EXEMPT' 1 - 2 tabs PO Q4H PRN 70 tabs 0RF pain G89.29 - Other chronic pain, (units unknown) (unknown) (unknown) (no date) (unknown) (unknown) (1) Chronic pa in syndrome: (units unknown) (unknown) (unknown) (no date) (unknown) (unknown) (2) H/O migraine: (u nits unknown) (unknown) (unknown) (no date) (unknown) (unknown) (3) Trigger finger: (units unknown) (unknown) (unknown) (no date) (unknown) (unknown) (4) Uncomplica toshia opioid dependence: (units unknown) (unknown) (unknown) (no date) (unknown) (unknown) 08/06/22 [Rx Confirmed 08/06/22] (units unknown) (unknown) (unknown) (no date) (unknown) (unknown) 08/06/22 (units unknown) (unknown) (unknown) (no date) (unknown) (unknown) 08/06/22] (units unknown) (unknown) (unknown) (no date) (unknown) (unknown) 03/12/22 [Hist ory Confirmed 08/06/22] (units unknown) (unknown) (unknown) (no date) (unknown) (unknown) 04/04/22 [Rx Confirmed 08/06/22] (units unknown) (unknown) (unknown) (no date) (unknown) (unknown) 13:58 (units unknown) (unknown) (unknown) (no date) (unknown) (unknown) [id number] (units unknown) (unknown) (unknown) (no date) (unknown) (unknown) Age/Sex: 57 / F Date of Service: (units unknown) (unknown) (unknown) (no date) (unknown) (unknown) Agitated (units unknown) (unknown) (unknown) (no date) (unknown) (unknown) Allergies (units unknown) (unknown) (unknown) (no date) (unknown) (unknown) Also has had a couple migraines took something from her mother that was (units unknown) (unknown) (unknown) (no date) (unknown) (unknown) Also write a prescription for sumatriptan. Neither she nor I can come up with (units unknown) (unknown) (unknown) (no date) (unknown) (unknown) [place] [address] (units unknown) (unknown) (unknown) (no date) (unknown) (unknown) Anxiety (11/22/16) ( units unknown) (unknown) (unknown) (no date) (unknown) (unknown) Assessment + Plan (u nits unknown) (unknown) (unknown) (no date) (unknown) (unknown) Attending Dr: Nasir Burdick MD (units unknown) (unknown) (unknown) (no date) (unknown) (unknown) BMI 25.7 (units unknown) (unknown) (unknown) (no date) (unknown) (unknown) BP 120/88 (units unknown) (unknown) (unknown) (no date) (unknown) (unknown) Bipolar I disorder ( units unknown) (unknown) (unknown) (no date) (unknown) (unknown) Blood Pressure Location Lt brachial (units unknown) (unknown) (unknown) (no date) (unknown) (unknown) Chief Complain t: Follow-up meds (units unknown) (unknown) (unknown) (no date) (unknown) (unknown) Chronic back pain (u nits unknown) (unknown) (unknown) (no date) (unknown) (unknown) Chronic left shoulder pain (units unknown) (unknown) (unknown) (no date) (unknown) (unknown) Chronic pain o f left knee (units unknown) (unknown) (unknown) (no date) (unknown) (unknown) Chronic pain syndrome (units unknown) (unknown) (unknown) (no date) (unknown) (unknown) Confirmed 08/06/22] (units unknown) (unknown) (unknown) (no date) (unknown) (unknown) : 5 Acct:[id number] (units unknown) (unknown) (unknown) (no date) (unknown) (unknown) Dept at . (units unknown) (unknown) (unknown) (no date) (unknown) (unknown) Discuss Migrai rose. States shes had 2 in the last month. (units unknown) (unknown) (unknown) (no date) (unknown) (unknown) Discuss. (units unknown) (unknown) (unknown) (no date) (unknown) (unknown) Documented By: Nasir Burdick MD 08/06/22 1349 (units unknown) (unknown) (unknown) (no date) (unknown) (unknown) Draft (units unknown) (unknown) (unknown) (no date) (unknown) (unknown) Dyspareunia in female (05/22/16) (units unknown) (unknown) (unknown) (no date) (unknown) (unknown) [facility] (units unknown) (unknown) (unknown) (no date) (unknown) (unknown) Follow Up XRay - Hand. (units unknown) (unknown) (unknown) (no date) (unknown) (unknown) GIVE BENADRYL FIRST (units unknown) (unknown) (unknown) (no date) (unknown) (unknown) H/O migraine (units unknown) (unknown) (unknown) (no date) (unknown) (unknown) HEART ATTACK (units unknown) (unknown) (unknown) (no date) (unknown) (unknown) HIVES/VOMIT (units unknown) (unknown) (unknown) (no date) (unknown) (unknown) Hearing loss (units unknown) (unknown) (unknown) (no date) (unknown) (unknown) Height 5 ft 8 in (un its unknown) (unknown) (unknown) (no date) (unknown) (unknown) History of bow el resection (units unknown) (unknown) (unknown) (no date) (unknown) (unknown) I will send he r to hand surgeon at [facility] given her insurance regarding what (units unknown) (unknown) (unknown) (no date) (unknown) (unknown) IF ON AWHILE O R IN MOUTH (DENTAL) (units unknown) (unknown) (unknown) (no date) (unknown) (unknown) Intake Note: (units unknown) (unknown) (unknown) (no date) (unknown) (unknown) Intake perform ed by: Lavinia Dutton (units unknown) (unknown) (unknown) (no date) (unknown) (unknown) Intake (units unknown) (unknown) (unknown) (no date) (unknown) (unknown) Intake- [facility] gar[facility] Staff (units unknown) (unknown) (unknown) (no date) (unknown) (unknown) Internal Medic ine Office Visit (units unknown) (unknown) (unknown) (no date) (unknown) (unknown) Last Menstural Cycle + Details (units unknown) (unknown) (unknown) (no date) (unknown) (unknown) Loc: [facility] (units unknown) (unknown) (unknown) (no date) (unknown) (unknown) M25.512 - Pain in left shoulder, M25.562 - Pain in left knee, M54.9 - Dorsalgia, (units unknown) (unknown) (unknown) (no date) (unknown) (unknown) 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 (units unknown) (unknown) (unknown) (no date) (unknown) (unknown) Medical Histor y (Updated 11/07/21 @ 14:37 by Nasir Burdick MD) (units unknown) (unknown) (unknown) (no date) (unknown) (unknown) Medications (units unknown) (unknown) (unknown) (no date) (unknown) (unknown) Medications: (units unknown) (unknown) (unknown) (no date) (unknown) (unknown) Methamphetamine use (units unknown) (unknown) (unknown) (no date) (unknown) (unknown) Mixed incontinence ( units unknown) (unknown) (unknown) (no date) (unknown) (unknown) New (units unknown) (unknown) (unknown) (no date) (unknown) (unknown) Note (units unknown) (unknown) (unknown) (no date) (unknown) (unknown) Note: (units unknown) (unknown) (unknown) (no date) (unknown) (unknown) Notes (units unknown) (unknown) (unknown) (no date) (unknown) (unknown) Other Menstrua l Period: Surgical Menopause (units unknown) (unknown) (unknown) (no date) (unknown) (unknown) Oxygen Deliver y Method room air (units unknown) (unknown) (unknown) (no date) (unknown) (unknown) PFSH (units unknown) (unknown) (unknown) (no date) (unknown) (unknown) Patient is her e to follow-up. Been 2 months since she last had hydrocodone (units unknown) (unknown) (unknown) (no date) (unknown) (unknown) Patient: Carrie Horn MR#: [id number] (units unknown) (unknown) (unknown) (no date) (unknown) (unknown) Plan for retur n to see me in 2 months (units unknown) (unknown) (unknown) (no date) (unknown) (unknown) Plan (units unknown) (unknown) (unknown) (no date) (unknown) (unknown) Position Sitting (un its unknown) (unknown) (unknown) (no date) (unknown) (unknown) Primary insomn ia (05/22/16) (units unknown) (unknown) (unknown) (no date) (unknown) (unknown) Pulse 88 (units unknown) (unknown) (unknown) (no date) (unknown) (unknown) Pulse Oximetry (%) 99 (units unknown) (unknown) (unknown) (no date) (unknown) (unknown) Pulse Source Monitor (units unknown) (unknown) (unknown) (no date) (unknown) (unknown) Qualified Code (s): M65.30 - Trigger finger, unspecified finger (units unknown) (unknown) (unknown) (no date) (unknown) (unknown) Qualifiers: (units unknown) (unknown) (unknown) (no date) (unknown) (unknown) Reason For Visit (un its unknown) (unknown) (unknown) (no date) (unknown) (unknown) Recheck Meds (units unknown) (unknown) (unknown) (no date) (unknown) (unknown) Refill Reedy/A PAP + Inhaler. (units unknown) (unknown) (unknown) (no date) (unknown) (unknown) Refilled (units unknown) (unknown) (unknown) (no date) (unknown) (unknown) Review/Discuss. (uni ts unknown) (unknown) (unknown) (no date) (unknown) (unknown) Reviewing the CLINICAL HAEMATOLOGIST there is no evidence of any unexpected medication refills and (units unknown) (unknown) (unknown) (no date) (unknown) (unknown) Signed By: (units unknown) (unknown) (unknown) (no date) (unknown) (unknown) Smoking Status : Former smoker (units unknown) (unknown) (unknown) (no date) (unknown) (unknown) Status post appendectomy (units unknown) (unknown) (unknown) (no date) (unknown) (unknown) Status post cholecystectomy (units unknown) (unknown) (unknown) (no date) (unknown) (unknown) Status: Chronic (uni ts unknown) (unknown) (unknown) (no date) (unknown) (unknown) Still has significant discomfort particularly in the ring finger of her right (units unknown) (unknown) (unknown) (no date) (unknown) (unknown) Surgical Histo ry (units unknown) (unknown) (unknown) (no date) (unknown) (unknown) TAPES-CLEAR Al lergy (Mild, Uncoded 08/06/22 13:50) (units unknown) (unknown) (unknown) (no date) (unknown) (unknown) This note may have been all or partially generated using voice recognition (units unknown) (unknown) (unknown) (no date) (unknown) (unknown) Tobacco + Subs tance Use (units unknown) (unknown) (unknown) (no date) (unknown) (unknown) Tobacco Status (unit s unknown) (unknown) (unknown) (no date) (unknown) (unknown) Took moms med that started with a F. Was sublingual. (units unknown) (unknown) (unknown) (no date) (unknown) (unknown) Trigger finger location: unspecified finger Laterality: right (units unknown) (unknown) (unknown) (no date) (unknown) (unknown) Uncomplicated opioid dependence (units unknown) (unknown) (unknown) (no date) (unknown) (unknown) VOMITING (units unknown) (unknown) (unknown) (no date) (unknown) (unknown) Visit Reasons: Recheck Meds (units unknown) (unknown) (unknown) (no date) (unknown) (unknown) Vitals (units unknown) (unknown) (unknown) (no date) (unknown) (unknown) Weight 76.912 kg (un its unknown) (unknown) (unknown) (no date) (unknown) (unknown) [Rx Confirmed 08/06/22] (units unknown) (unknown) (unknown) (no date) (unknown) (unknown) albuterol sulf ate 90 mcg/actuation aerosol inhaler (Ventolin HFA) 2 puff (units unknown) (unknown) (unknown) (no date) (unknown) (unknown) alcohol intake : never (units unknown) (unknown) (unknown) (no date) (unknown) (unknown) aspirin 81 mg tablet,delayed release (Adult Low Dose Aspirin) 81 mg PO DAILY (units unknown) (unknown) (unknown) (no date) (unknown) (unknown) azelastine 205 .5 mcg (0.15 %) nasal spray 1 spray intranasal BID #30 mL 10/28/18 (units unknown) (unknown) (unknown) (no date) (unknown) (unknown) benzodiazepine (unit s unknown) (unknown) (unknown) (no date) (unknown) (unknown) chlorhexidine gluconate 0.12 % mouthwash 15 ml mucous membrane BID PRN prevent (units unknown) (unknown) (unknown) (no date) (unknown) (unknown) cyclobenzaprin e 10 mg tablet 10 mg PO TID PRN muscle spasm #60 tabs 07/02/22 [Rx (units unknown) (unknown) (unknown) (no date) (unknown) (unknown) dissolved unde r the tongue was starting with the letter F but she came not (units unknown) (unknown) (unknown) (no date) (unknown) (unknown) does not sound familiar to her. She will try the sumatriptan which she probably (units unknown) (unknown) (unknown) (no date) (unknown) (unknown) estradiol 2 mg tablet 2 mg PO DAILY #90 tabs 03/12/22 [Rx Confirmed 08/06/22] (units unknown) (unknown) (unknown) (no date) (unknown) (unknown) findings on x-ray (u nits unknown) (unknown) (unknown) (no date) (unknown) (unknown) gum disease #1 5 mL 03/12/22 [Rx Confirmed 08/06/22] (units unknown) (unknown) (unknown) (no date) (unknown) (unknown) hand but also the little finger and the middle finger. Still locking up from (units unknown) (unknown) (unknown) (no date) (unknown) (unknown) have occurred. If there are any questions, please contact the Medical Records (units unknown) (unknown) (unknown) (no date) (unknown) (unknown) hydrocodone 5 mg-acetaminophen 325 mg tablet 1 - 2 tab PO Q4H PRN pain #70 tabs (units unknown) (unknown) (unknown) (no date) (unknown) (unknown) hydrocodone-ac etamin ophen 5-325 mg (units unknown) (unknown) (unknown) (no date) (unknown) (unknown) hyoscyamine lilly lfate 0.125 mg tablet 0.125 mg PO Q4H PRN abdominal pain #90 tabs (units unknown) (unknown) (unknown) (no date) (unknown) (unknown) ibuprofen 800 mg tablet 800 mg PO TID PRN pain #150 tabs 03/12/22 [Rx Confirmed (units unknown) (unknown) (unknown) (no date) (unknown) (unknown) inhalation Q2H P PRN shortness of breath or wheezing #2 inhalations 06/26/21 [Rx (units unknown) (unknown) (unknown) (no date) (unknown) (unknown) latex Allergy (Mild, Verified 08/06/22 13:50) (units unknown) (unknown) (unknown) (no date) (unknown) (unknown) loratadine 10 mg tablet 10 mg PO DAILY #90 tabs 03/12/22 [Rx Confirmed 08/06/22] (units unknown) (unknown) (unknown) (no date) (unknown) (unknown) lorazepam 1 mg tablet 1 mg PO Q8H PRN anxiety #60 tabs 07/27/22 [Rx Confirmed (units unknown) (unknown) (unknown) (no date) (unknown) (unknown) may occur. Occasional wrong-word or 'sound-alike' substitutions may have (units unknown) (unknown) (unknown) (no date) (unknown) (unknown) may repeat onc e after at least 2 hours 50 mg PO ONCE 9 tabs 0RF (units unknown) (unknown) (unknown) (no date) (unknown) (unknown) medication. Th ere is 1 of the Triptan that is Maxalt or its generic name which (units unknown) (unknown) (unknown) (no date) (unknown) (unknown) multivitamin-C a-iron -minerals 18 mg-0.4 mg tablet tab PO 03/12/22 [History (units unknown) (unknown) (unknown) (no date) (unknown) (unknown) naproxen Adver se Reaction (Mild, Verified 08/06/22 13:50) (units unknown) (unknown) (unknown) (no date) (unknown) (unknown) occurred due t o the inherent limitations of voice recognition software. Please (units unknown) (unknown) (unknown) (no date) (unknown) (unknown) omeprazole 40 mg capsule,delayed release 40 mg PO DAILY #90 caps 03/12/22 [Rx (units unknown) (unknown) (unknown) (no date) (unknown) (unknown) read the note carefully and recognize, using context, where these substitutions (units unknown) (unknown) (unknown) (no date) (unknown) (unknown) refill his loo aaliyah for 1 today (units unknown) (unknown) (unknown) (no date) (unknown) (unknown) remember what it was and abort her headache (units unknown) (unknown) (unknown) (no date) (unknown) (unknown) risper Adverse Reaction (Uncoded 08/06/22 13:50) (units unknown) (unknown) (unknown) (no date) (unknown) (unknown) ritodrine Nicanor rgy (Severe, Verified 08/06/22 13:50) (units unknown) (unknown) (unknown) (no date) (unknown) (unknown) sertraline 100 mg tablet 100 mg PO DAILY #90 tabs 01/09/22 [Rx Confirmed (units unknown) (unknown) (unknown) (no date) (unknown) (unknown) so I am okay t o refill her hydrocodone today. She does not need a refill of her (units unknown) (unknown) (unknown) (no date) (unknown) (unknown) software. 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 (units unknown) (unknown) (unknown) (no date) (unknown) (unknown) sounds like so me pretty classic arthritis of the fingers despite negative (units unknown) (unknown) (unknown) (no date) (unknown) (unknown) substance use type: does not use (units unknown) (unknown) (unknown) (no date) (unknown) (unknown) sucralfate 1 g dawson tablet 1 g PO QACHS #120 tabs 03/12/22 [Rx Confirmed 08/06/22] (units unknown) (unknown) (unknown) (no date) (unknown) (unknown) sumatriptan succinate 50 mg tablet 50 mg PO ONCE #9 tabs 08/06/22 [Rx Confirmed (units unknown) (unknown) (unknown) (no date) (unknown) (unknown) sumatriptan succinate (units unknown) (unknown) (unknown) (no date) (unknown) (unknown) tetracycline A llergy (Mild, Verified 08/06/22 13:50) (units unknown) (unknown) (unknown) (no date) (unknown) (unknown) the name of wh atever what she took that was a sublingual administered (units unknown) (unknown) (unknown) (no date) (unknown) (unknown) time to time. X-ray was done and was entirely normal (units unknown) (unknown) (unknown) (no date) (unknown) (unknown) took before sh e thinks I think she is right (units unknown) (unknown) (unknown) (no date) (unknown) (unknown) trazodone 50 m g tablet See Rx Instructions .Route .COMPLEX #360 tabs 03/12/22 (units unknown) (unknown) (unknown) (no date) (unknown) (unknown) unspecified (units unknown) (unknown) (unknown) (no date) (unknown) (unknown) vancomycin All ergy (Intermediate, Verified 08/06/22 13:50) (units unknown) (unknown) Result panel 4 (unknown) (no date) (unknown) (unknown) (no value) (units unknown) (unknown) (unknown) (no date) (unknown) (unknown) 'WILLIAM' (units unknown) (unknown) (unknown) (no date) (unknown) (unknown) 'EXEMPT' 1 - 2 tabs PO Q4H PRN 70 tabs 0RF pain G89.29 - Other chronic pain, (units unknown) (unknown) (unknown) (no date) (unknown) (unknown) (1) Chronic pa in syndrome: (units unknown) (unknown) (unknown) (no date) (unknown) (unknown) (2) H/O migraine: (u nits unknown) (unknown) (unknown) (no date) (unknown) (unknown) (3) Trigger finger: (units unknown) (unknown) (unknown) (no date) (unknown) (unknown) (4) Uncomplica toshia opioid dependence: (units unknown) (unknown) (unknown) (no date) (unknown) (unknown) 08/06/22 [Rx Confirmed 08/06/22] (units unknown) (unknown) (unknown) (no date) (unknown) (unknown) 08/06/22 (units unknown) (unknown) (unknown) (no date) (unknown) (unknown) 08/06/22] (units unknown) (unknown) (unknown) (no date) (unknown) (unknown) 03/12/22 [Hist ory Confirmed 08/06/22] (units unknown) (unknown) (unknown) (no date) (unknown) (unknown) 04/04/22 [Rx Confirmed 08/06/22] (units unknown) (unknown) (unknown) (no date) (unknown) (unknown) 13:58 (units unknown) (unknown) (unknown) (no date) (unknown) (unknown) 17910 (units unknown) (unknown) (unknown) (no date) (unknown) (unknown) Age/Sex: 57 / F Date of Service: (units unknown) (unknown) (unknown) (no date) (unknown) (unknown) Agitated (units unknown) (unknown) (unknown) (no date) (unknown) (unknown) Allergies (units unknown) (unknown) (unknown) (no date) (unknown) (unknown) Also has had a couple migraines took something from her mother that was (units unknown) (unknown) (unknown) (no date) (unknown) (unknown) Also write a prescription for sumatriptan. Neither she nor I can come up with (units unknown) (unknown) (unknown) (no date) (unknown) (unknown) [place] [address] (units unknown) (unknown) (unknown) (no date) (unknown) (unknown) Anxiety (11/22/16) ( units unknown) (unknown) (unknown) (no date) (unknown) (unknown) Assessment + Plan (u nits unknown) (unknown) (unknown) (no date) (unknown) (unknown) Attending Dr: Nasir Burdick MD (units unknown) (unknown) (unknown) (no date) (unknown) (unknown) BMI 25.7 (units unknown) (unknown) (unknown) (no date) (unknown) (unknown) BP 120/88 (units unknown) (unknown) (unknown) (no date) (unknown) (unknown) Bipolar I disorder ( units unknown) (unknown) (unknown) (no date) (unknown) (unknown) Blood Pressure Location Lt brachial (units unknown) (unknown) (unknown) (no date) (unknown) (unknown) Chief Complain t: Follow-up meds (units unknown) (unknown) (unknown) (no date) (unknown) (unknown) Chronic back pain (u nits unknown) (unknown) (unknown) (no date) (unknown) (unknown) Chronic left shoulder pain (units unknown) (unknown) (unknown) (no date) (unknown) (unknown) Chronic pain o f left knee (units unknown) (unknown) (unknown) (no date) (unknown) (unknown) Chronic pain syndrome (units unknown) (unknown) (unknown) (no date) (unknown) (unknown) Confirmed 04/10/23] (units unknown) (unknown) (unknown) (no date) (unknown) (unknown) : 5 Acct:[id number] (units unknown) (unknown) (unknown) (no date) (unknown) (unknown) Dept at . (units unknown) (unknown) (unknown) (no date) (unknown) (unknown) Discuss Migrai rose. States shes had 2 in the last month. (units unknown) (unknown) (unknown) (no date) (unknown) (unknown) Discuss. (units unknown) (unknown) (unknown) (no date) (unknown) (unknown) Documented By: Nasir Burdick MD 08/06/22 1349 (units unknown) (unknown) (unknown) (no date) (unknown) (unknown) Draft (units unknown) (unknown) (unknown) (no date) (unknown) (unknown) Dyspareunia in female (05/22/16) (units unknown) (unknown) (unknown) (no date) (unknown) (unknown) [facility] (units unknown) (unknown) (unknown) (no date) (unknown) (unknown) Follow Up XRay - Hand. (units unknown) (unknown) (unknown) (no date) (unknown) (unknown) GIVE BENADRYL FIRST (units unknown) (unknown) (unknown) (no date) (unknown) (unknown) H/O migraine (units unknown) (unknown) (unknown) (no date) (unknown) (unknown) HEART ATTACK (units unknown) (unknown) (unknown) (no date) (unknown) (unknown) HIVES/VOMIT (units unknown) (unknown) (unknown) (no date) (unknown) (unknown) Hearing loss (units unknown) (unknown) (unknown) (no date) (unknown) (unknown) Height 5 ft 8 in (un its unknown) (unknown) (unknown) (no date) (unknown) (unknown) History of bow el resection (units unknown) (unknown) (unknown) (no date) (unknown) (unknown) I will send he r to hand surgeon at [facility] given her insurance regarding what (units unknown) (unknown) (unknown) (no date) (unknown) (unknown) IF ON AWHILE O R IN MOUTH (DENTAL) (units unknown) (unknown) (unknown) (no date) (unknown) (unknown) Intake Note: (units unknown) (unknown) (unknown) (no date) (unknown) (unknown) Intake perform ed by: Lavinia Dutton (units unknown) (unknown) (unknown) (no date) (unknown) (unknown) Intake (units unknown) (unknown) (unknown) (no date) (unknown) (unknown) Intake- Clinc[facility] al Staff (units unknown) (unknown) (unknown) (no date) (unknown) (unknown) Internal Medic ine Office Visit (units unknown) (unknown) (unknown) (no date) (unknown) (unknown) Last Menstural Cycle + Details (units unknown) (unknown) (unknown) (no date) (unknown) (unknown) Laterality: ri ght Trigger finger location: unspecified finger (units unknown) (unknown) (unknown) (no date) (unknown) (unknown) Loc: [facility] (units unknown) (unknown) (unknown) (no date) (unknown) (unknown) M25.512 - Pain in left shoulder, M25.562 - Pain in left knee, M54.9 - Dorsalgia, (units unknown) (unknown) (unknown) (no date) (unknown) (unknown) 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 (units unknown) (unknown) (unknown) (no date) (unknown) (unknown) Medical Histor y (Updated 11/07/21 @ 14:37 by Nasir Burdick MD) (units unknown) (unknown) (unknown) (no date) (unknown) (unknown) Medications (units unknown) (unknown) (unknown) (no date) (unknown) (unknown) Medications: (units unknown) (unknown) (unknown) (no date) (unknown) (unknown) Methamphetamine use (units unknown) (unknown) (unknown) (no date) (unknown) (unknown) Mixed incontinence ( units unknown) (unknown) (unknown) (no date) (unknown) (unknown) New (units unknown) (unknown) (unknown) (no date) (unknown) (unknown) Note (units unknown) (unknown) (unknown) (no date) (unknown) (unknown) Note: (units unknown) (unknown) (unknown) (no date) (unknown) (unknown) Notes (units unknown) (unknown) (unknown) (no date) (unknown) (unknown) Other Menstrua l Period: Surgical Menopause (units unknown) (unknown) (unknown) (no date) (unknown) (unknown) Oxygen Deliver y Method room air (units unknown) (unknown) (unknown) (no date) (unknown) (unknown) PFSH (units unknown) (unknown) (unknown) (no date) (unknown) (unknown) Patient is her e to follow-up. Been 2 months since she last had hydrocodone (units unknown) (unknown) (unknown) (no date) (unknown) (unknown) Patient: Carrie Horn MR#: [id number] (units unknown) (unknown) (unknown) (no date) (unknown) (unknown) Plan for retur n to see me in 2 months (units unknown) (unknown) (unknown) (no date) (unknown) (unknown) Plan (units unknown) (unknown) (unknown) (no date) (unknown) (unknown) Position Sitting (un its unknown) (unknown) (unknown) (no date) (unknown) (unknown) Primary insomn ia (05/22/16) (units unknown) (unknown) (unknown) (no date) (unknown) (unknown) Pulse 88 (units unknown) (unknown) (unknown) (no date) (unknown) (unknown) Pulse Oximetry (%) 99 (units unknown) (unknown) (unknown) (no date) (unknown) (unknown) Pulse Source Monitor (units unknown) (unknown) (unknown) (no date) (unknown) (unknown) Qualified Code (s): M65.30 - Trigger finger, unspecified finger (units unknown) (unknown) (unknown) (no date) (unknown) (unknown) Qualifiers: (units unknown) (unknown) (unknown) (no date) (unknown) (unknown) Reason For Visit (un its unknown) (unknown) (unknown) (no date) (unknown) (unknown) Recheck Meds (units unknown) (unknown) (unknown) (no date) (unknown) (unknown) Refill Reedy/A PAP + Inhaler. (units unknown) (unknown) (unknown) (no date) (unknown) (unknown) Refilled (units unknown) (unknown) (unknown) (no date) (unknown) (unknown) Review/Discuss. (uni ts unknown) (unknown) (unknown) (no date) (unknown) (unknown) Reviewing the CLINICAL HAEMATOLOGIST there is no evidence of any unexpected medication refills and (units unknown) (unknown) (unknown) (no date) (unknown) (unknown) Signed By: (units unknown) (unknown) (unknown) (no date) (unknown) (unknown) Smoking Status : Former smoker (units unknown) (unknown) (unknown) (no date) (unknown) (unknown) Status post appendectomy (units unknown) (unknown) (unknown) (no date) (unknown) (unknown) Status post cholecystectomy (units unknown) (unknown) (unknown) (no date) (unknown) (unknown) Status: Chronic (uni ts unknown) (unknown) (unknown) (no date) (unknown) (unknown) Still has significant discomfort particularly in the ring finger of her right (units unknown) (unknown) (unknown) (no date) (unknown) (unknown) Surgical Histo ry (units unknown) (unknown) (unknown) (no date) (unknown) (unknown) TAPES-CLEAR Al lergy (Mild, Uncoded 08/06/22 13:50) (units unknown) (unknown) (unknown) (no date) (unknown) (unknown) This note may have been all or partially generated using voice recognition (units unknown) (unknown) (unknown) (no date) (unknown) (unknown) Tobacco + Subs tance Use (units unknown) (unknown) (unknown) (no date) (unknown) (unknown) Tobacco Status (unit s unknown) (unknown) (unknown) (no date) (unknown) (unknown) Took moms med that started with a F. Was sublingual. (units unknown) (unknown) (unknown) (no date) (unknown) (unknown) Uncomplicated opioid dependence (units unknown) (unknown) (unknown) (no date) (unknown) (unknown) VOMITING (units unknown) (unknown) (unknown) (no date) (unknown) (unknown) Visit Reasons: Recheck Meds (units unknown) (unknown) (unknown) (no date) (unknown) (unknown) Vitals (units unknown) (unknown) (unknown) (no date) (unknown) (unknown) Weight 169 lb 9 oz ( units unknown) (unknown) (unknown) (no date) (unknown) (unknown) [Rx Confirmed 08/06/22] (units unknown) (unknown) (unknown) (no date) (unknown) (unknown) albuterol sulf ate 90 mcg/actuation aerosol inhaler (Ventolin HFA) 2 puff (units unknown) (unknown) (unknown) (no date) (unknown) (unknown) alcohol intake : never (units unknown) (unknown) (unknown) (no date) (unknown) (unknown) aspirin 81 mg tablet,delayed release (Adult Low Dose Aspirin) 81 mg PO DAILY (units unknown) (unknown) (unknown) (no date) (unknown) (unknown) azelastine 205 .5 mcg (0.15 %) nasal spray 1 spray intranasal BID #30 mL 10/28/18 (units unknown) (unknown) (unknown) (no date) (unknown) (unknown) benzodiazepine (unit s unknown) (unknown) (unknown) (no date) (unknown) (unknown) chlorhexidine gluconate 0.12 % mouthwash 15 ml mucous membrane BID PRN prevent (units unknown) (unknown) (unknown) (no date) (unknown) (unknown) cyclobenzaprin e 10 mg tablet 10 mg PO TID PRN muscle spasm #60 tabs 07/02/22 [Rx (units unknown) (unknown) (unknown) (no date) (unknown) (unknown) dissolved unde r the tongue was starting with the letter F but she came not (units unknown) (unknown) (unknown) (no date) (unknown) (unknown) does not sound familiar to her. She will try the sumatriptan which she probably (units unknown) (unknown) (unknown) (no date) (unknown) (unknown) estradiol 2 mg tablet 2 mg PO DAILY #90 tabs 03/12/22 [Rx Confirmed 08/06/22] (units unknown) (unknown) (unknown) (no date) (unknown) (unknown) findings on x-ray (u nits unknown) (unknown) (unknown) (no date) (unknown) (unknown) gum disease #1 5 mL 03/12/22 [Rx Confirmed 08/06/22] (units unknown) (unknown) (unknown) (no date) (unknown) (unknown) hand but also the little finger and the middle finger. Still locking up from (units unknown) (unknown) (unknown) (no date) (unknown) (unknown) have occurred. If there are any questions, please contact the Medical Records (units unknown) (unknown) (unknown) (no date) (unknown) (unknown) hydrocodone 5 mg-acetaminophen 325 mg tablet 1 - 2 tab PO Q4H PRN pain #70 tabs (units unknown) (unknown) (unknown) (no date) (unknown) (unknown) hydrocodone-ac etamin ophen 5-325 mg (units unknown) (unknown) (unknown) (no date) (unknown) (unknown) hyoscyamine lilly lfate 0.125 mg tablet 0.125 mg PO Q4H PRN abdominal pain #90 tabs (units unknown) (unknown) (unknown) (no date) (unknown) (unknown) ibuprofen 800 mg tablet 800 mg PO TID PRN pain #150 tabs 03/12/22 [Rx Confirmed (units unknown) (unknown) (unknown) (no date) (unknown) (unknown) inhalation Q2H P PRN shortness of breath or wheezing #2 inhalations 06/26/21 [Rx (units unknown) (unknown) (unknown) (no date) (unknown) (unknown) latex Allergy (Mild, Verified 08/06/22 13:50) (units unknown) (unknown) (unknown) (no date) (unknown) (unknown) loratadine 10 mg tablet 10 mg PO DAILY #90 tabs 03/12/22 [Rx Confirmed 08/06/22] (units unknown) (unknown) (unknown) (no date) (unknown) (unknown) lorazepam 1 mg tablet 1 mg PO Q8H PRN anxiety #60 tabs 07/27/22 [Rx Confirmed (units unknown) (unknown) (unknown) (no date) (unknown) (unknown) may occur. Occasional wrong-word or 'sound-alike' substitutions may have (units unknown) (unknown) (unknown) (no date) (unknown) (unknown) may repeat onc e after at least 2 hours 50 mg PO ONCE 9 tabs 0RF (units unknown) (unknown) (unknown) (no date) (unknown) (unknown) medication. Th ere is 1 of the Triptan that is Maxalt or its generic name which (units unknown) (unknown) (unknown) (no date) (unknown) (unknown) multivitamin-C a-iron -minerals 18 mg-0.4 mg tablet tab PO 03/12/22 [History (units unknown) (unknown) (unknown) (no date) (unknown) (unknown) naproxen Adver se Reaction (Mild, Verified 08/06/22 13:50) (units unknown) (unknown) (unknown) (no date) (unknown) (unknown) occurred due t o the inherent limitations of voice recognition software. Please (units unknown) (unknown) (unknown) (no date) (unknown) (unknown) omeprazole 40 mg capsule,delayed release 40 mg PO DAILY #90 caps 03/12/22 [Rx (units unknown) (unknown) (unknown) (no date) (unknown) (unknown) read the note carefully and recognize, using context, where these substitutions (units unknown) (unknown) (unknown) (no date) (unknown) (unknown) refill his loo aaliyah for 1 today (units unknown) (unknown) (unknown) (no date) (unknown) (unknown) remember what it was and abort her headache (units unknown) (unknown) (unknown) (no date) (unknown) (unknown) risper Adverse Reaction (Uncoded 08/06/22 13:50) (units unknown) (unknown) (unknown) (no date) (unknown) (unknown) ritodrine Nicanor rgy (Severe, Verified 08/06/22 13:50) (units unknown) (unknown) (unknown) (no date) (unknown) (unknown) sertraline 100 mg tablet 100 mg PO DAILY #90 tabs 01/09/22 [Rx Confirmed (units unknown) (unknown) (unknown) (no date) (unknown) (unknown) so I am okay t o refill her hydrocodone today. She does not need a refill of her (units unknown) (unknown) (unknown) (no date) (unknown) (unknown) software. 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 (units unknown) (unknown) (unknown) (no date) (unknown) (unknown) sounds like so me pretty classic arthritis of the fingers despite negative (units unknown) (unknown) (unknown) (no date) (unknown) (unknown) substance use type: does not use (units unknown) (unknown) (unknown) (no date) (unknown) (unknown) sucralfate 1 g dawson tablet 1 g PO QACHS #120 tabs 03/12/22 [Rx Confirmed 08/06/22] (units unknown) (unknown) (unknown) (no date) (unknown) (unknown) sumatriptan succinate 50 mg tablet 50 mg PO ONCE #9 tabs 08/06/22 [Rx Confirmed (units unknown) (unknown) (unknown) (no date) (unknown) (unknown) sumatriptan succinate (units unknown) (unknown) (unknown) (no date) (unknown) (unknown) tetracycline A llergy (Mild, Verified 08/06/22 13:50) (units unknown) (unknown) (unknown) (no date) (unknown) (unknown) the name of wh atever what she took that was a sublingual administered (units unknown) (unknown) (unknown) (no date) (unknown) (unknown) time to time. X-ray was done and was entirely normal (units unknown) (unknown) (unknown) (no date) (unknown) (unknown) took before sh e thinks I think she is right (units unknown) (unknown) (unknown) (no date) (unknown) (unknown) trazodone 50 m g tablet See Rx Instructions .Route .COMPLEX #360 tabs 03/12/22 (units unknown) (unknown) (unknown) (no date) (unknown) (unknown) unspecified (units unknown) (unknown) (unknown) (no date) (unknown) (unknown) vancomycin All ergy (Intermediate, Verified 08/06/22 13:50) (units unknown) (unknown) Result panel 5 (unknown) (no date) (unknown) (unknown) (no value) (units unknown) (unknown) (unknown) (no date) (unknown) (unknown) 'WILLIAM' (units unknown) (unknown) (unknown) (no date) (unknown) (unknown) 'EXEMPT' 1 - 2 tabs PO Q4H PRN 70 tabs 0RF pain G89.29 - Other chronic pain, (units unknown) (unknown) (unknown) (no date) (unknown) (unknown) (1) Chronic pa in syndrome: (units unknown) (unknown) (unknown) (no date) (unknown) (unknown) (2) H/O migraine: (u nits unknown) (unknown) (unknown) (no date) (unknown) (unknown) (3) Trigger finger: (units unknown) (unknown) (unknown) (no date) (unknown) (unknown) (4) Uncomplica toshia opioid dependence: (units unknown) (unknown) (unknown) (no date) (unknown) (unknown) 08/06/22 [Rx Confirmed 08/06/22] (units unknown) (unknown) (unknown) (no date) (unknown) (unknown) 08/06/22 (units unknown) (unknown) (unknown) (no date) (unknown) (unknown) 08/06/22] (units unknown) (unknown) (unknown) (no date) (unknown) (unknown) 03/12/22 [Hist ory Confirmed 08/06/22] (units unknown) (unknown) (unknown) (no date) (unknown) (unknown) 04/04/22 [Rx Confirmed 08/06/22] (units unknown) (unknown) (unknown) (no date) (unknown) (unknown) 13:58 (units unknown) (unknown) (unknown) (no date) (unknown) (unknown) [id number] (units unknown) (unknown) (unknown) (no date) (unknown) (unknown) Age/Sex: 57 / F Date of Service: (units unknown) (unknown) (unknown) (no date) (unknown) (unknown) Agitated (units unknown) (unknown) (unknown) (no date) (unknown) (unknown) Allergies (units unknown) (unknown) (unknown) (no date) (unknown) (unknown) Also has had a couple migraines took something from her mother that was (units unknown) (unknown) (unknown) (no date) (unknown) (unknown) Also write a prescription for sumatriptan. Neither she nor I can come up with (units unknown) (unknown) (unknown) (no date) (unknown) (unknown) [place], [place] [id number] (units unknown) (unknown) (unknown) (no date) (unknown) (unknown) Anxiety (11/22/16) ( units unknown) (unknown) (unknown) (no date) (unknown) (unknown) Assessment + Plan (u nits unknown) (unknown) (unknown) (no date) (unknown) (unknown) Attending Dr: Nasir Burdick MD (units unknown) (unknown) (unknown) (no date) (unknown) (unknown) BMI 25.7 (units unknown) (unknown) (unknown) (no date) (unknown) (unknown) BP 120/88 (units unknown) (unknown) (unknown) (no date) (unknown) (unknown) Bipolar I disorder ( units unknown) (unknown) (unknown) (no date) (unknown) (unknown) Blood Pressure Location Lt brachial (units unknown) (unknown) (unknown) (no date) (unknown) (unknown) Chief Complain t: Follow-up meds (units unknown) (unknown) (unknown) (no date) (unknown) (unknown) Chronic back pain (u nits unknown) (unknown) (unknown) (no date) (unknown) (unknown) Chronic left shoulder pain (units unknown) (unknown) (unknown) (no date) (unknown) (unknown) Chronic pain o f left knee (units unknown) (unknown) (unknown) (no date) (unknown) (unknown) Chronic pain syndrome (units unknown) (unknown) (unknown) (no date) (unknown) (unknown) Confirmed 08/06/22] (units unknown) (unknown) (unknown) (no date) (unknown) (unknown) : 5 Acct:[id number] (units unknown) (unknown) (unknown) (no date) (unknown) (unknown) Dept at . (units unknown) (unknown) (unknown) (no date) (unknown) (unknown) Discuss Migrai rose. States shes had 2 in the last month. (units unknown) (unknown) (unknown) (no date) (unknown) (unknown) Discuss. (units unknown) (unknown) (unknown) (no date) (unknown) (unknown) Documented By: Nasir Burdick MD 08/06/22 1349 (units unknown) (unknown) (unknown) (no date) (unknown) (unknown) Draft (units unknown) (unknown) (unknown) (no date) (unknown) (unknown) Dyspareunia in female (05/22/16) (units unknown) (unknown) (unknown) (no date) (unknown) (unknown) [facility] (units unknown) (unknown) (unknown) (no date) (unknown) (unknown) Follow Up XRay - Hand. (units unknown) (unknown) (unknown) (no date) (unknown) (unknown) GIVE BENADRYL FIRST (units unknown) (unknown) (unknown) (no date) (unknown) (unknown) H/O migraine (units unknown) (unknown) (unknown) (no date) (unknown) (unknown) HEART ATTACK (units unknown) (unknown) (unknown) (no date) (unknown) (unknown) HIVES/VOMIT (units unknown) (unknown) (unknown) (no date) (unknown) (unknown) Hearing loss (units unknown) (unknown) (unknown) (no date) (unknown) (unknown) Height 5 ft 8 in (un its unknown) (unknown) (unknown) (no date) (unknown) (unknown) History of bow el resection (units unknown) (unknown) (unknown) (no date) (unknown) (unknown) I will send he r to hand surgeon at [facility] given her insurance regarding what (units unknown) (unknown) (unknown) (no date) (unknown) (unknown) IF ON AWHILE O R IN MOUTH (DENTAL) (units unknown) (unknown) (unknown) (no date) (unknown) (unknown) Intake Note: (units unknown) (unknown) (unknown) (no date) (unknown) (unknown) Intake perform ed by: Lavinia Dutton (units unknown) (unknown) (unknown) (no date) (unknown) (unknown) Intake (units unknown) (unknown) (unknown) (no date) (unknown) (unknown) Intake- [facility] [facility] (units unknown) (unknown) (unknown) (no date) (unknown) (unknown) Internal Medic ine Office Visit (units unknown) (unknown) (unknown) (no date) (unknown) (unknown) Last Menstural Cycle + Details (units unknown) (unknown) (unknown) (no date) (unknown) (unknown) Laterality: ri ght Trigger finger location: unspecified finger (units unknown) (unknown) (unknown) (no date) (unknown) (unknown) Loc: [facility] (units unknown) (unknown) (unknown) (no date) (unknown) (unknown) M25.512 - Pain in left shoulder, M25.562 - Pain in left knee, M54.9 - Dorsalgia, (units unknown) (unknown) (unknown) (no date) (unknown) (unknown) 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 (units unknown) (unknown) (unknown) (no date) (unknown) (unknown) Medical Histor y (Updated 11/07/21 @ 14:37 by Nasir Burdick MD) (units unknown) (unknown) (unknown) (no date) (unknown) (unknown) Medications (units unknown) (unknown) (unknown) (no date) (unknown) (unknown) Medications: (units unknown) (unknown) (unknown) (no date) (unknown) (unknown) Methamphetamine use (units unknown) (unknown) (unknown) (no date) (unknown) (unknown) Mixed incontinence ( units unknown) (unknown) (unknown) (no date) (unknown) (unknown) New (units unknown) (unknown) (unknown) (no date) (unknown) (unknown) Note (units unknown) (unknown) (unknown) (no date) (unknown) (unknown) Note: (units unknown) (unknown) (unknown) (no date) (unknown) (unknown) Notes (units unknown) (unknown) (unknown) (no date) (unknown) (unknown) Other Menstrua l Period: Surgical Menopause (units unknown) (unknown) (unknown) (no date) (unknown) (unknown) Oxygen Deliver y Method room air (units unknown) (unknown) (unknown) (no date) (unknown) (unknown) PFSH (units unknown) (unknown) (unknown) (no date) (unknown) (unknown) Patient is her e to follow-up. Been 2 months since she last had hydrocodone (units unknown) (unknown) (unknown) (no date) (unknown) (unknown) Patient: Carrie Horn MR#: [id number] (units unknown) (unknown) (unknown) (no date) (unknown) (unknown) Plan for retur n to see me in 2 months (units unknown) (unknown) (unknown) (no date) (unknown) (unknown) Plan (units unknown) (unknown) (unknown) (no date) (unknown) (unknown) Position Sitting (un its unknown) (unknown) (unknown) (no date) (unknown) (unknown) Primary insomn ia (05/22/16) (units unknown) (unknown) (unknown) (no date) (unknown) (unknown) Pulse 88 (units unknown) (unknown) (unknown) (no date) (unknown) (unknown) Pulse Oximetry (%) 99 (units unknown) (unknown) (unknown) (no date) (unknown) (unknown) Pulse Source Monitor (units unknown) (unknown) (unknown) (no date) (unknown) (unknown) Qualified Code (s): M65.30 - Trigger finger, unspecified finger (units unknown) (unknown) (unknown) (no date) (unknown) (unknown) Qualifiers: (units unknown) (unknown) (unknown) (no date) (unknown) (unknown) Reason For Visit (un its unknown) (unknown) (unknown) (no date) (unknown) (unknown) Recheck Meds (units unknown) (unknown) (unknown) (no date) (unknown) (unknown) Refill Reedy/A PAP + Inhaler. (units unknown) (unknown) (unknown) (no date) (unknown) (unknown) Refilled (units unknown) (unknown) (unknown) (no date) (unknown) (unknown) Review/Discuss. (uni ts unknown) (unknown) (unknown) (no date) (unknown) (unknown) Reviewing the CLINICAL HAEMATOLOGIST there is no evidence of any unexpected medication refills and (units unknown) (unknown) (unknown) (no date) (unknown) (unknown) Signed By: (units unknown) (unknown) (unknown) (no date) (unknown) (unknown) Smoking Status : Former smoker (units unknown) (unknown) (unknown) (no date) (unknown) (unknown) Status post appendectomy (units unknown) (unknown) (unknown) (no date) (unknown) (unknown) Status post cholecystectomy (units unknown) (unknown) (unknown) (no date) (unknown) (unknown) Status: Chronic (uni ts unknown) (unknown) (unknown) (no date) (unknown) (unknown) Still has significant discomfort particularly in the ring finger of her right (units unknown) (unknown) (unknown) (no date) (unknown) (unknown) Surgical Histo ry (units unknown) (unknown) (unknown) (no date) (unknown) (unknown) TAPES-CLEAR Leno carlisle (Mild, Uncoded 08/06/22 13:50) (units unknown) (unknown) (unknown) (no date) (unknown) (unknown) This note may have been all or partially generated using voice recognition (units unknown) (unknown) (unknown) (no date) (unknown) (unknown) Tobacco + Subs tance Use (units unknown) (unknown) (unknown) (no date) (unknown) (unknown) Tobacco Status (unit s unknown) (unknown) (unknown) (no date) (unknown) (unknown) Took moms med that started with a F. Was sublingual. (units unknown) (unknown) (unknown) (no date) (unknown) (unknown) Uncomplicated opioid dependence (units unknown) (unknown) (unknown) (no date) (unknown) (unknown) VOMITING (units unknown) (unknown) (unknown) (no date) (unknown) (unknown) Visit Reasons: Recheck Meds (units unknown) (unknown) (unknown) (no date) (unknown) (unknown) Vitals (units unknown) (unknown) (unknown) (no date) (unknown) (unknown) Weight 169 lb 9 oz ( units unknown) (unknown) (unknown) (no date) (unknown) (unknown) [Rx Confirmed 08/06/22] (units unknown) (unknown) (unknown) (no date) (unknown) (unknown) albuterol sulf ate 90 mcg/actuation aerosol inhaler (Ventolin HFA) 2 puff (units unknown) (unknown) (unknown) (no date) (unknown) (unknown) alcohol intake : never (units unknown) (unknown) (unknown) (no date) (unknown) (unknown) aspirin 81 mg tablet,delayed release (Adult Low Dose Aspirin) 81 mg PO DAILY (units unknown) (unknown) (unknown) (no date) (unknown) (unknown) azelastine 205 .5 mcg (0.15 %) nasal spray 1 spray intranasal BID #30 mL 10/28/18 (units unknown) (unknown) (unknown) (no date) (unknown) (unknown) benzodiazepine (unit s unknown) (unknown) (unknown) (no date) (unknown) (unknown) chlorhexidine gluconate 0.12 % mouthwash 15 ml mucous membrane BID PRN prevent (units unknown) (unknown) (unknown) (no date) (unknown) (unknown) cyclobenzaprin e 10 mg tablet 10 mg PO TID PRN muscle spasm #60 tabs 07/02/22 [Rx (units unknown) (unknown) (unknown) (no date) (unknown) (unknown) dissolved unde r the tongue was starting with the letter F but she came not (units unknown) (unknown) (unknown) (no date) (unknown) (unknown) does not sound familiar to her. She will try the sumatriptan which she probably (units unknown) (unknown) (unknown) (no date) (unknown) (unknown) estradiol 2 mg tablet 2 mg PO DAILY #90 tabs 03/12/22 [Rx Confirmed 08/06/22] (units unknown) (unknown) (unknown) (no date) (unknown) (unknown) findings on x-ray (u nits unknown) (unknown) (unknown) (no date) (unknown) (unknown) gum disease #1 5 mL 03/12/22 [Rx Confirmed 08/06/22] (units unknown) (unknown) (unknown) (no date) (unknown) (unknown) hand but also the little finger and the middle finger. Still locking up from (units unknown) (unknown) (unknown) (no date) (unknown) (unknown) have occurred. If there are any questions, please contact the Medical Records (units unknown) (unknown) (unknown) (no date) (unknown) (unknown) hydrocodone 5 mg-acetaminophen 325 mg tablet 1 - 2 tab PO Q4H PRN pain #70 tabs (units unknown) (unknown) (unknown) (no date) (unknown) (unknown) hydrocodone-ac etamin ophen 5-325 mg (units unknown) (unknown) (unknown) (no date) (unknown) (unknown) hyoscyamine lilly lfate 0.125 mg tablet 0.125 mg PO Q4H PRN abdominal pain #90 tabs (units unknown) (unknown) (unknown) (no date) (unknown) (unknown) ibuprofen 800 mg tablet 800 mg PO TID PRN pain #150 tabs 03/12/22 [Rx Confirmed (units unknown) (unknown) (unknown) (no date) (unknown) (unknown) inhalation Q2H P PRN shortness of breath or wheezing #2 inhalations 06/26/21 [Rx (units unknown) (unknown) (unknown) (no date) (unknown) (unknown) latex Allergy (Mild, Verified 08/06/22 13:50) (units unknown) (unknown) (unknown) (no date) (unknown) (unknown) loratadine 10 mg tablet 10 mg PO DAILY #90 tabs 03/12/22 [Rx Confirmed 08/06/22] (units unknown) (unknown) (unknown) (no date) (unknown) (unknown) lorazepam 1 mg tablet 1 mg PO Q8H PRN anxiety #60 tabs 07/27/22 [Rx Confirmed (units unknown) (unknown) (unknown) (no date) (unknown) (unknown) may occur. Occasional wrong-word or 'sound-alike' substitutions may have (units unknown) (unknown) (unknown) (no date) (unknown) (unknown) may repeat onc e after at least 2 hours 50 mg PO ONCE 9 tabs 0RF (units unknown) (unknown) (unknown) (no date) (unknown) (unknown) medication. Th ere is 1 of the Triptan that is Maxalt or its generic name which (units unknown) (unknown) (unknown) (no date) (unknown) (unknown) multivitamin-C a-iron -minerals 18 mg-0.4 mg tablet tab PO 03/12/22 [History (units unknown) (unknown) (unknown) (no date) (unknown) (unknown) naproxen Adver se Reaction (Mild, Verified 08/06/22 13:50) (units unknown) (unknown) (unknown) (no date) (unknown) (unknown) occurred due t o the inherent limitations of voice recognition software. Please (units unknown) (unknown) (unknown) (no date) (unknown) (unknown) omeprazole 40 mg capsule,delayed release 40 mg PO DAILY #90 caps 03/12/22 [Rx (units unknown) (unknown) (unknown) (no date) (unknown) (unknown) read the note carefully and recognize, using context, where these substitutions (units unknown) (unknown) (unknown) (no date) (unknown) (unknown) refill his loo aaliyah for 1 today (units unknown) (unknown) (unknown) (no date) (unknown) (unknown) remember what it was and abort her headache (units unknown) (unknown) (unknown) (no date) (unknown) (unknown) risper Adverse Reaction (Uncoded 08/06/22 13:50) (units unknown) (unknown) (unknown) (no date) (unknown) (unknown) ritodrine Nicanor rgy (Severe, Verified 08/06/22 13:50) (units unknown) (unknown) (unknown) (no date) (unknown) (unknown) sertraline 100 mg tablet 100 mg PO DAILY #90 tabs 01/09/22 [Rx Confirmed (units unknown) (unknown) (unknown) (no date) (unknown) (unknown) so I am okay t o refill her hydrocodone today. She does not need a refill of her (units unknown) (unknown) (unknown) (no date) (unknown) (unknown) software. 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 (units unknown) (unknown) (unknown) (no date) (unknown) (unknown) sounds like so me pretty classic arthritis of the fingers despite negative (units unknown) (unknown) (unknown) (no date) (unknown) (unknown) substance use type: does not use (units unknown) (unknown) (unknown) (no date) (unknown) (unknown) sucralfate 1 g dawson tablet 1 g PO QACHS #120 tabs 03/12/22 [Rx Confirmed 08/06/22] (units unknown) (unknown) (unknown) (no date) (unknown) (unknown) sumatriptan succinate 50 mg tablet 50 mg PO ONCE #9 tabs 08/06/22 [Rx Confirmed (units unknown) (unknown) (unknown) (no date) (unknown) (unknown) sumatriptan succinate (units unknown) (unknown) (unknown) (no date) (unknown) (unknown) tetracycline A llergy (Mild, Verified 08/06/22 13:50) (units unknown) (unknown) (unknown) (no date) (unknown) (unknown) the name of carmen atever what she took that was a sublingual administered (units unknown) (unknown) (unknown) (no date) (unknown) (unknown) time to time. X-ray was done and was entirely normal (units unknown) (unknown) (unknown) (no date) (unknown) (unknown) took before sh e thinks I think she is right (units unknown) (unknown) (unknown) (no date) (unknown) (unknown) trazodone 50 m g tablet See Rx Instructions .Route .COMPLEX #360 tabs 03/12/22 (units unknown) (unknown) (unknown) (no date) (unknown) (unknown) unspecified (units unknown) (unknown) (unknown) (no date) (unknown) (unknown) vancomycin All ergy (Intermediate, Verified 08/06/22 13:50) (units unknown) (unknown) Result panel 6 (unknown) (no date) (unknown) (unknown) (no value) (units unknown) (unknown) (unknown) (no date) (unknown) (unknown) 'WILLIAM' (units unknown) (unknown) (unknown) (no date) (unknown) (unknown) 'EXEMPT' 1 - 2 tabs PO Q4H PRN 70 tabs 0RF pain G89.29 - Other chronic pain, (units unknown) (unknown) (unknown) (no date) (unknown) (unknown) (1) Chronic pa in syndrome: (units unknown) (unknown) (unknown) (no date) (unknown) (unknown) (2) H/O migraine: (u nits unknown) (unknown) (unknown) (no date) (unknown) (unknown) (3) Trigger finger: (units unknown) (unknown) (unknown) (no date) (unknown) (unknown) (4) Uncomplica toshia opioid dependence: (units unknown) (unknown) (unknown) (no date) (unknown) (unknown) 08/06/22 [Rx Confirmed 08/06/22] (units unknown) (unknown) (unknown) (no date) (unknown) (unknown) 08/06/22 (units unknown) (unknown) (unknown) (no date) (unknown) (unknown) 08/06/22] (units unknown) (unknown) (unknown) (no date) (unknown) (unknown) 08/07/22 1207 (units unknown) (unknown) (unknown) (no date) (unknown) (unknown) 03/12/22 [Hist ory Confirmed 08/06/22] (units unknown) (unknown) (unknown) (no date) (unknown) (unknown) 04/04/22 [Rx Confirmed 08/06/22] (units unknown) (unknown) (unknown) (no date) (unknown) (unknown) 13:58 (units unknown) (unknown) (unknown) (no date) (unknown) (unknown) [id number] (units unknown) (unknown) (unknown) (no date) (unknown) (unknown) Age/Sex: 57 / F Date of Service: (units unknown) (unknown) (unknown) (no date) (unknown) (unknown) Agitated (units unknown) (unknown) (unknown) (no date) (unknown) (unknown) Allergies (units unknown) (unknown) (unknown) (no date) (unknown) (unknown) Also has had a couple migraines took something from her mother that was (units unknown) (unknown) (unknown) (no date) (unknown) (unknown) Also write a prescription for sumatriptan. Neither she nor I can come up with (units unknown) (unknown) (unknown) (no date) (unknown) (unknown) [place] [address] (units unknown) (unknown) (unknown) (no date) (unknown) (unknown) Anxiety (11/22/16) ( units unknown) (unknown) (unknown) (no date) (unknown) (unknown) Assessment + Plan (u nits unknown) (unknown) (unknown) (no date) (unknown) (unknown) Attending Dr: Nasir Burdick MD (units unknown) (unknown) (unknown) (no date) (unknown) (unknown) BMI 25.7 (units unknown) (unknown) (unknown) (no date) (unknown) (unknown) BP 120/88 (units unknown) (unknown) (unknown) (no date) (unknown) (unknown) Bipolar I disorder ( units unknown) (unknown) (unknown) (no date) (unknown) (unknown) Blood Pressure Location Lt brachial (units unknown) (unknown) (unknown) (no date) (unknown) (unknown) Chief Complain t: Follow-up meds (units unknown) (unknown) (unknown) (no date) (unknown) (unknown) Chronic back pain (u nits unknown) (unknown) (unknown) (no date) (unknown) (unknown) Chronic left shoulder pain (units unknown) (unknown) (unknown) (no date) (unknown) (unknown) Chronic pain o f left knee (units unknown) (unknown) (unknown) (no date) (unknown) (unknown) Chronic pain syndrome (units unknown) (unknown) (unknown) (no date) (unknown) (unknown) Confirmed 08/06/22] (units unknown) (unknown) (unknown) (no date) (unknown) (unknown) : 5 Acct:[id number] (units unknown) (unknown) (unknown) (no date) (unknown) (unknown) Dept at . (units unknown) (unknown) (unknown) (no date) (unknown) (unknown) Discuss Migrai rose. States shes had 2 in the last month. (units unknown) (unknown) (unknown) (no date) (unknown) (unknown) Discuss. (units unknown) (unknown) (unknown) (no date) (unknown) (unknown) Documented By: Nasir Burdick MD 08/06/22 1349 (units unknown) (unknown) (unknown) (no date) (unknown) (unknown) Dyspareunia in female (05/22/16) (units unknown) (unknown) (unknown) (no date) (unknown) (unknown) [facility] (units unknown) (unknown) (unknown) (no date) (unknown) (unknown) Follow Up XRay - Hand. (units unknown) (unknown) (unknown) (no date) (unknown) (unknown) GIVE BENADRYL FIRST (units unknown) (unknown) (unknown) (no date) (unknown) (unknown) H/O migraine (units unknown) (unknown) (unknown) (no date) (unknown) (unknown) HEART ATTACK (units unknown) (unknown) (unknown) (no date) (unknown) (unknown) HIVES/VOMIT (units unknown) (unknown) (unknown) (no date) (unknown) (unknown) Hearing loss (units unknown) (unknown) (unknown) (no date) (unknown) (unknown) Height 5 ft 8 in (un its unknown) (unknown) (unknown) (no date) (unknown) (unknown) History of bow el resection (units unknown) (unknown) (unknown) (no date) (unknown) (unknown) I will send he r to hand surgeon at [facility] given her insurance regarding what (units unknown) (unknown) (unknown) (no date) (unknown) (unknown) IF ON AWHILE O R IN MOUTH (DENTAL) (units unknown) (unknown) (unknown) (no date) (unknown) (unknown) Intake Note: (units unknown) (unknown) (unknown) (no date) (unknown) (unknown) Intake perform ed by: Lavinia Dutton (units unknown) (unknown) (unknown) (no date) (unknown) (unknown) Intake (units unknown) (unknown) (unknown) (no date) (unknown) (unknown) Intake- [facility] (units unknown) (unknown) (unknown) (no date) (unknown) (unknown) Internal Medic ine Office Visit (units unknown) (unknown) (unknown) (no date) (unknown) (unknown) Last Menstural Cycle + Details (units unknown) (unknown) (unknown) (no date) (unknown) (unknown) Laterality: ri ght Trigger finger location: unspecified finger (units unknown) (unknown) (unknown) (no date) (unknown) (unknown) Loc: [facility] (units unknown) (unknown) (unknown) (no date) (unknown) (unknown) M25.512 - Pain in left shoulder, M25.562 - Pain in left knee, M54.9 - Dorsalgia, (units unknown) (unknown) (unknown) (no date) (unknown) (unknown) 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 (units unknown) (unknown) (unknown) (no date) (unknown) (unknown) Medical Histor y (Updated 11/07/21 @ 14:37 by Nasir Burdick MD) (units unknown) (unknown) (unknown) (no date) (unknown) (unknown) Medications (units unknown) (unknown) (unknown) (no date) (unknown) (unknown) Medications: (units unknown) (unknown) (unknown) (no date) (unknown) (unknown) Methamphetamine use (units unknown) (unknown) (unknown) (no date) (unknown) (unknown) Mixed incontinence ( units unknown) (unknown) (unknown) (no date) (unknown) (unknown) New (units unknown) (unknown) (unknown) (no date) (unknown) (unknown) Note (units unknown) (unknown) (unknown) (no date) (unknown) (unknown) Note: (units unknown) (unknown) (unknown) (no date) (unknown) (unknown) Notes (units unknown) (unknown) (unknown) (no date) (unknown) (unknown) Other Menstrua l Period: Surgical Menopause (units unknown) (unknown) (unknown) (no date) (unknown) (unknown) Oxygen Deliver y Method room air (units unknown) (unknown) (unknown) (no date) (unknown) (unknown) PFSH (units unknown) (unknown) (unknown) (no date) (unknown) (unknown) Patient is her e to follow-up. Been 2 months since she last had hydrocodone (units unknown) (unknown) (unknown) (no date) (unknown) (unknown) Patient: Carrie Horn MR#: [id number] (units unknown) (unknown) (unknown) (no date) (unknown) (unknown) Plan for retur n to see me in 2 months (units unknown) (unknown) (unknown) (no date) (unknown) (unknown) Plan (units unknown) (unknown) (unknown) (no date) (unknown) (unknown) Position Sitting (un its unknown) (unknown) (unknown) (no date) (unknown) (unknown) Primary insomn ia (05/22/16) (units unknown) (unknown) (unknown) (no date) (unknown) (unknown) Pulse 88 (units unknown) (unknown) (unknown) (no date) (unknown) (unknown) Pulse Oximetry (%) 99 (units unknown) (unknown) (unknown) (no date) (unknown) (unknown) Pulse Source Monitor (units unknown) (unknown) (unknown) (no date) (unknown) (unknown) Qualified Code (s): M65.30 - Trigger finger, unspecified finger (units unknown) (unknown) (unknown) (no date) (unknown) (unknown) Qualifiers: (units unknown) (unknown) (unknown) (no date) (unknown) (unknown) Reason For Visit (un its unknown) (unknown) (unknown) (no date) (unknown) (unknown) Recheck Meds (units unknown) (unknown) (unknown) (no date) (unknown) (unknown) Refill Reedy/A PAP + Inhaler. (units unknown) (unknown) (unknown) (no date) (unknown) (unknown) Refilled (units unknown) (unknown) (unknown) (no date) (unknown) (unknown) Review/Discuss. (uni ts unknown) (unknown) (unknown) (no date) (unknown) (unknown) Reviewing the CLINICAL HAEMATOLOGIST there is no evidence of any unexpected medication refills and (units unknown) (unknown) (unknown) (no date) (unknown) (unknown) Signed By: <Electronically signed by Nasir Burdick MD> (units unknown) (unknown) (unknown) (no date) (unknown) (unknown) Signed (units unknown) (unknown) (unknown) (no date) (unknown) (unknown) Smoking Status : Former smoker (units unknown) (unknown) (unknown) (no date) (unknown) (unknown) Status post appendectomy (units unknown) (unknown) (unknown) (no date) (unknown) (unknown) Status post cholecystectomy (units unknown) (unknown) (unknown) (no date) (unknown) (unknown) Status: Chronic (uni ts unknown) (unknown) (unknown) (no date) (unknown) (unknown) Still has significant discomfort particularly in the ring finger of her right (units unknown) (unknown) (unknown) (no date) (unknown) (unknown) Surgical Histo ry (units unknown) (unknown) (unknown) (no date) (unknown) (unknown) TAPES-CLEAR Al lergy (Mild, Uncoded 08/06/22 13:50) (units unknown) (unknown) (unknown) (no date) (unknown) (unknown) This note may have been all or partially generated using voice recognition (units unknown) (unknown) (unknown) (no date) (unknown) (unknown) Tobacco + Subs tance Use (units unknown) (unknown) (unknown) (no date) (unknown) (unknown) Tobacco Status (unit s unknown) (unknown) (unknown) (no date) (unknown) (unknown) Took moms med that started with a F. Was sublingual. (units unknown) (unknown) (unknown) (no date) (unknown) (unknown) Uncomplicated opioid dependence (units unknown) (unknown) (unknown) (no date) (unknown) (unknown) VOMITING (units unknown) (unknown) (unknown) (no date) (unknown) (unknown) Visit Reasons: Recheck Meds (units unknown) (unknown) (unknown) (no date) (unknown) (unknown) Vitals (units unknown) (unknown) (unknown) (no date) (unknown) (unknown) Weight 169 lb 9 oz ( units unknown) (unknown) (unknown) (no date) (unknown) (unknown) [Rx Confirmed 08/06/22] (units unknown) (unknown) (unknown) (no date) (unknown) (unknown) albuterol sulf ate 90 mcg/actuation aerosol inhaler (Ventolin HFA) 2 puff (units unknown) (unknown) (unknown) (no date) (unknown) (unknown) alcohol intake : never (units unknown) (unknown) (unknown) (no date) (unknown) (unknown) aspirin 81 mg tablet,delayed release (Adult Low Dose Aspirin) 81 mg PO DAILY (units unknown) (unknown) (unknown) (no date) (unknown) (unknown) azelastine 205 .5 mcg (0.15 %) nasal spray 1 spray intranasal BID #30 mL 10/28/18 (units unknown) (unknown) (unknown) (no date) (unknown) (unknown) benzodiazepine (unit s unknown) (unknown) (unknown) (no date) (unknown) (unknown) chlorhexidine gluconate 0.12 % mouthwash 15 ml mucous membrane BID PRN prevent (units unknown) (unknown) (unknown) (no date) (unknown) (unknown) cyclobenzaprin e 10 mg tablet 10 mg PO TID PRN muscle spasm #60 tabs 07/02/22 [Rx (units unknown) (unknown) (unknown) (no date) (unknown) (unknown) dissolved unde r the tongue was starting with the letter F but she came not (units unknown) (unknown) (unknown) (no date) (unknown) (unknown) does not sound familiar to her. She will try the sumatriptan which she probably (units unknown) (unknown) (unknown) (no date) (unknown) (unknown) estradiol 2 mg tablet 2 mg PO DAILY #90 tabs 03/12/22 [Rx Confirmed 08/06/22] (units unknown) (unknown) (unknown) (no date) (unknown) (unknown) findings on x-ray (u nits unknown) (unknown) (unknown) (no date) (unknown) (unknown) gum disease #1 5 mL 03/12/22 [Rx Confirmed 08/06/22] (units unknown) (unknown) (unknown) (no date) (unknown) (unknown) hand but also the little finger and the middle finger. Still locking up from (units unknown) (unknown) (unknown) (no date) (unknown) (unknown) have occurred. If there are any questions, please contact the Medical Records (units unknown) (unknown) (unknown) (no date) (unknown) (unknown) hydrocodone 5 mg-acetaminophen 325 mg tablet 1 - 2 tab PO Q4H PRN pain #70 tabs (units unknown) (unknown) (unknown) (no date) (unknown) (unknown) hydrocodone-ac etamin ophen 5-325 mg (units unknown) (unknown) (unknown) (no date) (unknown) (unknown) hyoscyamine lilly lfate 0.125 mg tablet 0.125 mg PO Q4H PRN abdominal pain #90 tabs (units unknown) (unknown) (unknown) (no date) (unknown) (unknown) ibuprofen 800 mg tablet 800 mg PO TID PRN pain #150 tabs 03/12/22 [Rx Confirmed (units unknown) (unknown) (unknown) (no date) (unknown) (unknown) inhalation Q2H P PRN shortness of breath or wheezing #2 inhalations 06/26/21 [Rx (units unknown) (unknown) (unknown) (no date) (unknown) (unknown) latex Allergy (Mild, Verified 08/06/22 13:50) (units unknown) (unknown) (unknown) (no date) (unknown) (unknown) loratadine 10 mg tablet 10 mg PO DAILY #90 tabs 03/12/22 [Rx Confirmed 08/06/22] (units unknown) (unknown) (unknown) (no date) (unknown) (unknown) lorazepam 1 mg tablet 1 mg PO Q8H PRN anxiety #60 tabs 07/27/22 [Rx Confirmed (units unknown) (unknown) (unknown) (no date) (unknown) (unknown) may occur. Occasional wrong-word or 'sound-alike' substitutions may have (units unknown) (unknown) (unknown) (no date) (unknown) (unknown) may repeat onc e after at least 2 hours 50 mg PO ONCE 9 tabs 0RF (units unknown) (unknown) (unknown) (no date) (unknown) (unknown) medication. Th ere is 1 of the Triptan that is Maxalt or its generic name which (units unknown) (unknown) (unknown) (no date) (unknown) (unknown) multivitamin-C a-iron -minerals 18 mg-0.4 mg tablet tab PO 03/12/22 [History (units unknown) (unknown) (unknown) (no date) (unknown) (unknown) naproxen Adver se Reaction (Mild, Verified 08/06/22 13:50) (units unknown) (unknown) (unknown) (no date) (unknown) (unknown) occurred due t o the inherent limitations of voice recognition software. Please (units unknown) (unknown) (unknown) (no date) (unknown) (unknown) omeprazole 40 mg capsule,delayed release 40 mg PO DAILY #90 caps 03/12/22 [Rx (units unknown) (unknown) (unknown) (no date) (unknown) (unknown) read the note carefully and recognize, using context, where these substitutions (units unknown) (unknown) (unknown) (no date) (unknown) (unknown) refill his loo aaliyah for 1 today (units unknown) (unknown) (unknown) (no date) (unknown) (unknown) remember what it was and abort her headache (units unknown) (unknown) (unknown) (no date) (unknown) (unknown) risper Adverse Reaction (Uncoded 08/06/22 13:50) (units unknown) (unknown) (unknown) (no date) (unknown) (unknown) ritodrine Nicanor rgy (Severe, Verified 08/06/22 13:50) (units unknown) (unknown) (unknown) (no date) (unknown) (unknown) sertraline 100 mg tablet 100 mg PO DAILY #90 tabs 01/09/22 [Rx Confirmed (units unknown) (unknown) (unknown) (no date) (unknown) (unknown) so I am okay t o refill her hydrocodone today. She does not need a refill of her (units unknown) (unknown) (unknown) (no date) (unknown) (unknown) software. 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 (units unknown) (unknown) (unknown) (no date) (unknown) (unknown) sounds like so me pretty classic arthritis of the fingers despite negative (units unknown) (unknown) (unknown) (no date) (unknown) (unknown) substance use type: does not use (units unknown) (unknown) (unknown) (no date) (unknown) (unknown) sucralfate 1 g dawson tablet 1 g PO QACHS #120 tabs 03/12/22 [Rx Confirmed 08/06/22] (units unknown) (unknown) (unknown) (no date) (unknown) (unknown) sumatriptan succinate 50 mg tablet 50 mg PO ONCE #9 tabs 08/06/22 [Rx Confirmed (units unknown) (unknown) (unknown) (no date) (unknown) (unknown) sumatriptan succinate (units unknown) (unknown) (unknown) (no date) (unknown) (unknown) tetracycline A llergy (Mild, Verified 08/06/22 13:50) (units unknown) (unknown) (unknown) (no date) (unknown) (unknown) the name of wh atever what she took that was a sublingual administered (units unknown) (unknown) (unknown) (no date) (unknown) (unknown) time to time. X-ray was done and was entirely normal (units unknown) (unknown) (unknown) (no date) (unknown) (unknown) took before sh e thinks I think she is right (units unknown) (unknown) (unknown) (no date) (unknown) (unknown) trazodone 50 m g tablet See Rx Instructions .Route .COMPLEX #360 tabs 03/12/22 (units unknown) (unknown) (unknown) (no date) (unknown) (unknown) unspecified (units unknown) (unknown) (unknown) (no date) (unknown) (unknown) vancomycin All ergy (Intermediate, Verified 08/06/22 13:50) (units unknown) (unknown) Result panel 7 (unknown) (no date) (unknown) (unknown) (no value) (units unknown) (unknown) (unknown) (no date) (unknown) (unknown) 'WILLIAM' (units unknown) (unknown) (unknown) (no date) (unknown) (unknown) 08/17/22 [Rx Confirmed 10/08/22] (units unknown) (unknown) (unknown) (no date) (unknown) (unknown) 09/06/22 [Rx Confirmed 10/08/22] (units unknown) (unknown) (unknown) (no date) (unknown) (unknown) 10/08/22 (units unknown) (unknown) (unknown) (no date) (unknown) (unknown) 10/08/22] (units unknown) (unknown) (unknown) (no date) (unknown) (unknown) 03/12/22 [Hist ory Confirmed 10/08/22] (units unknown) (unknown) (unknown) (no date) (unknown) (unknown) [id number] (units unknown) (unknown) (unknown) (no date) (unknown) (unknown) Age/Sex: 57 / F Date of Service: (units unknown) (unknown) (unknown) (no date) (unknown) (unknown) Agitated (units unknown) (unknown) (unknown) (no date) (unknown) (unknown) Allergies (units unknown) (unknown) (unknown) (no date) (unknown) (unknown) [place] [address] (units unknown) (unknown) (unknown) (no date) (unknown) (unknown) Anxiety (11/22/16) ( units unknown) (unknown) (unknown) (no date) (unknown) (unknown) Attending Dr: Nasir Burdick MD (units unknown) (unknown) (unknown) (no date) (unknown) (unknown) Bipolar I disorder ( units unknown) (unknown) (unknown) (no date) (unknown) (unknown) Chronic back pain (u nits unknown) (unknown) (unknown) (no date) (unknown) (unknown) Chronic left shoulder pain (units unknown) (unknown) (unknown) (no date) (unknown) (unknown) Chronic pain o f left knee (units unknown) (unknown) (unknown) (no date) (unknown) (unknown) Chronic pain syndrome (units unknown) (unknown) (unknown) (no date) (unknown) (unknown) Confirmed 10/08/22] (units unknown) (unknown) (unknown) (no date) (unknown) (unknown) : 5 Acct:[id number] (units unknown) (unknown) (unknown) (no date) (unknown) (unknown) Dept at . (units unknown) (unknown) (unknown) (no date) (unknown) (unknown) Documented By: Nasir Burdick MD 10/08/22 2279 (units unknown) (unknown) (unknown) (no date) (unknown) (unknown) Draft (units unknown) (unknown) (unknown) (no date) (unknown) (unknown) Dyspareunia in female (05/22/16) (units unknown) (unknown) (unknown) (no date) (unknown) (unknown) [facility] (units unknown) (unknown) (unknown) (no date) (unknown) (unknown) Follow Up Meds (unit s unknown) (unknown) (unknown) (no date) (unknown) (unknown) GIVE BENADRYL FIRST (units unknown) (unknown) (unknown) (no date) (unknown) (unknown) H/O migraine (units unknown) (unknown) (unknown) (no date) (unknown) (unknown) HEART ATTACK (units unknown) (unknown) (unknown) (no date) (unknown) (unknown) HIVES/VOMIT (units unknown) (unknown) (unknown) (no date) (unknown) (unknown) Hearing loss (units unknown) (unknown) (unknown) (no date) (unknown) (unknown) History of bow el resection (units unknown) (unknown) (unknown) (no date) (unknown) (unknown) IF ON AWHILE O R IN MOUTH (DENTAL) (units unknown) (unknown) (unknown) (no date) (unknown) (unknown) Intake Note: (units unknown) (unknown) (unknown) (no date) (unknown) (unknown) Intake perform ed by: Lavinia Dutton (units unknown) (unknown) (unknown) (no date) (unknown) (unknown) Intake (units unknown) (unknown) (unknown) (no date) (unknown) (unknown) Intake- [facility] (units unknown) (unknown) (unknown) (no date) (unknown) (unknown) Internal Medic ine Office Visit (units unknown) (unknown) (unknown) (no date) (unknown) (unknown) Last Menstural Cycle + Details (units unknown) (unknown) (unknown) (no date) (unknown) (unknown) Loc: [facility] (units unknown) (unknown) (unknown) (no date) (unknown) (unknown) 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 (units unknown) (unknown) (unknown) (no date) (unknown) (unknown) Medical Histor y (Updated 11/07/21 @ 14:37 by Nasir Burdick MD) (units unknown) (unknown) (unknown) (no date) (unknown) (unknown) Medications (units unknown) (unknown) (unknown) (no date) (unknown) (unknown) Methamphetamine use (units unknown) (unknown) (unknown) (no date) (unknown) (unknown) Mixed incontinence ( units unknown) (unknown) (unknown) (no date) (unknown) (unknown) Other Menstrua l Period: Surgical Menopause (units unknown) (unknown) (unknown) (no date) (unknown) (unknown) PFSH (units unknown) (unknown) (unknown) (no date) (unknown) (unknown) Pain Management (uni ts unknown) (unknown) (unknown) (no date) (unknown) (unknown) Patient: Carrie Horn MR#: [id number] (units unknown) (unknown) (unknown) (no date) (unknown) (unknown) Primary insomn ia (05/22/16) (units unknown) (unknown) (unknown) (no date) (unknown) (unknown) Reason For Visit (un its unknown) (unknown) (unknown) (no date) (unknown) (unknown) Review/Discuss. (uni ts unknown) (unknown) (unknown) (no date) (unknown) (unknown) Signed By: (units unknown) (unknown) (unknown) (no date) (unknown) (unknown) Smoking Status : Former smoker (units unknown) (unknown) (unknown) (no date) (unknown) (unknown) Status post appendectomy (units unknown) (unknown) (unknown) (no date) (unknown) (unknown) Status post cholecystectomy (units unknown) (unknown) (unknown) (no date) (unknown) (unknown) Surgical Histo ry (units unknown) (unknown) (unknown) (no date) (unknown) (unknown) TAPES-CLEAR Al lergy (Mild, Uncoded 10/08/22 14:54) (units unknown) (unknown) (unknown) (no date) (unknown) (unknown) This note may have been all or partially generated using voice recognition (units unknown) (unknown) (unknown) (no date) (unknown) (unknown) Tobacco + Subs tance Use (units unknown) (unknown) (unknown) (no date) (unknown) (unknown) Tobacco Status (unit s unknown) (unknown) (unknown) (no date) (unknown) (unknown) Uncomplicated opioid dependence (units unknown) (unknown) (unknown) (no date) (unknown) (unknown) VOMITING (units unknown) (unknown) (unknown) (no date) (unknown) (unknown) Visit Reasons: Follow Up Meds (units unknown) (unknown) (unknown) (no date) (unknown) (unknown) [Rx Confirmed 10/08/22] (units unknown) (unknown) (unknown) (no date) (unknown) (unknown) albuterol sulf ate 90 mcg/actuation aerosol inhaler (Ventolin HFA) 2 puff (units unknown) (unknown) (unknown) (no date) (unknown) (unknown) alcohol intake : never (units unknown) (unknown) (unknown) (no date) (unknown) (unknown) aspirin 81 mg tablet,delayed release (Adult Low Dose Aspirin) 81 mg PO DAILY (units unknown) (unknown) (unknown) (no date) (unknown) (unknown) azelastine 205 .5 mcg (0.15 %) nasal spray 1 spray intranasal BID #30 mL 10/28/18 (units unknown) (unknown) (unknown) (no date) (unknown) (unknown) chlorhexidine gluconate 0.12 % mouthwash 15 ml mucous membrane BID PRN prevent (units unknown) (unknown) (unknown) (no date) (unknown) (unknown) cyclobenzaprin e 10 mg tablet 10 mg PO TID PRN muscle spasm #60 tabs 09/06/22 [Rx (units unknown) (unknown) (unknown) (no date) (unknown) (unknown) estradiol 2 mg tablet 2 mg PO DAILY #90 tabs 03/12/22 [Rx Confirmed 10/08/22] (units unknown) (unknown) (unknown) (no date) (unknown) (unknown) gum disease #1 5 mL 03/12/22 [Rx Confirmed 10/08/22] (units unknown) (unknown) (unknown) (no date) (unknown) (unknown) have occurred. If there are any questions, please contact the Medical Records (units unknown) (unknown) (unknown) (no date) (unknown) (unknown) hydrocodone 5 mg-acetaminophen 325 mg tablet 1 - 2 tab PO Q4H PRN pain #70 tabs (units unknown) (unknown) (unknown) (no date) (unknown) (unknown) hyoscyamine lilly lfate 0.125 mg tablet 0.125 mg PO Q4H PRN abdominal pain #90 tabs (units unknown) (unknown) (unknown) (no date) (unknown) (unknown) ibuprofen 800 mg tablet 800 mg PO TID PRN pain #150 tabs 03/12/22 [Rx Confirmed (units unknown) (unknown) (unknown) (no date) (unknown) (unknown) inhalation Q2H P PRN shortness of breath or wheezing #2 inhalations 06/26/21 [Rx (units unknown) (unknown) (unknown) (no date) (unknown) (unknown) latex Allergy (Mild, Verified 10/08/22 14:54) (units unknown) (unknown) (unknown) (no date) (unknown) (unknown) loratadine 10 mg tablet 10 mg PO DAILY #90 tabs 03/12/22 [Rx Confirmed 10/08/22] (units unknown) (unknown) (unknown) (no date) (unknown) (unknown) lorazepam 1 mg tablet 1 mg PO Q8H PRN anxiety #60 tabs 08/21/22 [Rx Confirmed (units unknown) (unknown) (unknown) (no date) (unknown) (unknown) may occur. Occasional wrong-word or 'sound-alike' substitutions may have (units unknown) (unknown) (unknown) (no date) (unknown) (unknown) multivitamin-C a-iron -minerals 18 mg-0.4 mg tablet tab PO 03/12/22 [History (units unknown) (unknown) (unknown) (no date) (unknown) (unknown) naproxen Adver se Reaction (Mild, Verified 10/08/22 14:54) (units unknown) (unknown) (unknown) (no date) (unknown) (unknown) occurred due t o the inherent limitations of voice recognition software. Please (units unknown) (unknown) (unknown) (no date) (unknown) (unknown) omeprazole 40 mg capsule,delayed release 40 mg PO DAILY #90 caps 03/12/22 [Rx (units unknown) (unknown) (unknown) (no date) (unknown) (unknown) read the note carefully and recognize, using context, where these substitutions (units unknown) (unknown) (unknown) (no date) (unknown) (unknown) risper Adverse Reaction (Uncoded 10/08/22 14:54) (units unknown) (unknown) (unknown) (no date) (unknown) (unknown) ritodrine Nicanor rgy (Severe, Verified 10/08/22 14:54) (units unknown) (unknown) (unknown) (no date) (unknown) (unknown) sertraline 100 mg tablet 100 mg PO DAILY #90 tabs 01/09/22 [Rx Confirmed (units unknown) (unknown) (unknown) (no date) (unknown) (unknown) software. 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 (units unknown) (unknown) (unknown) (no date) (unknown) (unknown) substance use type: does not use (units unknown) (unknown) (unknown) (no date) (unknown) (unknown) sucralfate 1 g dawson tablet 1 g PO QACHS #120 tabs 03/12/22 [Rx Confirmed 10/08/22] (units unknown) (unknown) (unknown) (no date) (unknown) (unknown) sumatriptan succinate 50 mg tablet 50 mg PO ONCE #9 tabs 08/06/22 [Rx Confirmed (units unknown) (unknown) (unknown) (no date) (unknown) (unknown) tetracycline A llergy (Mild, Verified 10/08/22 14:54) (units unknown) (unknown) (unknown) (no date) (unknown) (unknown) trazodone 50 m g tablet See Rx Instructions .Route .COMPLEX #360 tabs 03/12/22 (units unknown) (unknown) (unknown) (no date) (unknown) (unknown) vancomycin All ergy (Intermediate, Verified 10/08/22 14:54) (units unknown) (unknown) Result panel 8 (unknown) (no date) (unknown) (unknown) (no value) (units unknown) (unknown) (unknown) (no date) (unknown) (unknown) 'WILLIAM' (units unknown) (unknown) (unknown) (no date) (unknown) (unknown) 08/17/22 [Rx Confirmed 10/08/22] (units unknown) (unknown) (unknown) (no date) (unknown) (unknown) 09/06/22 [Rx Confirmed 10/08/22] (units unknown) (unknown) (unknown) (no date) (unknown) (unknown) 10/08/22 (units unknown) (unknown) (unknown) (no date) (unknown) (unknown) 10/08/22] (units unknown) (unknown) (unknown) (no date) (unknown) (unknown) 03/12/22 [Hist ory Confirmed 10/08/22] (units unknown) (unknown) (unknown) (no date) (unknown) (unknown) 15:00 (units unknown) (unknown) (unknown) (no date) (unknown) (unknown) [id number] (units unknown) (unknown) (unknown) (no date) (unknown) (unknown) Age/Sex: 57 / F Date of Service: (units unknown) (unknown) (unknown) (no date) (unknown) (unknown) Agitated (units unknown) (unknown) (unknown) (no date) (unknown) (unknown) Allergies (units unknown) (unknown) (unknown) (no date) (unknown) (unknown) [place] [address] (units unknown) (unknown) (unknown) (no date) (unknown) (unknown) Anxiety (11/22/16) ( units unknown) (unknown) (unknown) (no date) (unknown) (unknown) Attending Dr: Nasir Burdick MD (units unknown) (unknown) (unknown) (no date) (unknown) (unknown) BMI 25.5 (units unknown) (unknown) (unknown) (no date) (unknown) (unknown) BP 130/90 (units unknown) (unknown) (unknown) (no date) (unknown) (unknown) Bipolar I disorder ( units unknown) (unknown) (unknown) (no date) (unknown) (unknown) Blood Pressure Location Lt brachial (units unknown) (unknown) (unknown) (no date) (unknown) (unknown) Chronic back pain (u nits unknown) (unknown) (unknown) (no date) (unknown) (unknown) Chronic left shoulder pain (units unknown) (unknown) (unknown) (no date) (unknown) (unknown) Chronic pain o f left knee (units unknown) (unknown) (unknown) (no date) (unknown) (unknown) Chronic pain syndrome (units unknown) (unknown) (unknown) (no date) (unknown) (unknown) Confirmed 10/08/22] (units unknown) (unknown) (unknown) (no date) (unknown) (unknown) : 5 Acct:[id number] (units unknown) (unknown) (unknown) (no date) (unknown) (unknown) Dept at . (units unknown) (unknown) (unknown) (no date) (unknown) (unknown) Documented By: Nasir Burdick MD 10/08/22 1453 (units unknown) (unknown) (unknown) (no date) (unknown) (unknown) Draft (units unknown) (unknown) (unknown) (no date) (unknown) (unknown) Dyspareunia in female (05/22/16) (units unknown) (unknown) (unknown) (no date) (unknown) (unknown) [facility] (units unknown) (unknown) (unknown) (no date) (unknown) (unknown) Follow Up Meds (unit s unknown) (unknown) (unknown) (no date) (unknown) (unknown) GIVE BENADRYL FIRST (units unknown) (unknown) (unknown) (no date) (unknown) (unknown) H/O migraine (units unknown) (unknown) (unknown) (no date) (unknown) (unknown) HEART ATTACK (units unknown) (unknown) (unknown) (no date) (unknown) (unknown) HIVES/VOMIT (units unknown) (unknown) (unknown) (no date) (unknown) (unknown) Having issues regulating body temp. (units unknown) (unknown) (unknown) (no date) (unknown) (unknown) Hearing loss (units unknown) (unknown) (unknown) (no date) (unknown) (unknown) Height 5 ft 8 in (un its unknown) (unknown) (unknown) (no date) (unknown) (unknown) History of bow el resection (units unknown) (unknown) (unknown) (no date) (unknown) (unknown) IF ON AWHILE O R IN MOUTH (DENTAL) (units unknown) (unknown) (unknown) (no date) (unknown) (unknown) Intake Note: (units unknown) (unknown) (unknown) (no date) (unknown) (unknown) Intake perform ed by: Lavinia Dutton (units unknown) (unknown) (unknown) (no date) (unknown) (unknown) Intake (units unknown) (unknown) (unknown) (no date) (unknown) (unknown) Intake- [place] [facility] (units unknown) (unknown) (unknown) (no date) (unknown) (unknown) Internal Medic ine Office Visit (units unknown) (unknown) (unknown) (no date) (unknown) (unknown) Last Menstural Cycle + Details (units unknown) (unknown) (unknown) (no date) (unknown) (unknown) Loc: [facility] (units unknown) (unknown) (unknown) (no date) (unknown) (unknown) 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 (units unknown) (unknown) (unknown) (no date) (unknown) (unknown) Medical Histor y (Updated 11/07/21 @ 14:37 by Nasir Burdick MD) (units unknown) (unknown) (unknown) (no date) (unknown) (unknown) Medication for incontinence (units unknown) (unknown) (unknown) (no date) (unknown) (unknown) Medications (units unknown) (unknown) (unknown) (no date) (unknown) (unknown) Methamphetamine use (units unknown) (unknown) (unknown) (no date) (unknown) (unknown) Mixed incontinence ( units unknown) (unknown) (unknown) (no date) (unknown) (unknown) Other Menstrua l Period: Surgical Menopause (units unknown) (unknown) (unknown) (no date) (unknown) (unknown) PFSH (units unknown) (unknown) (unknown) (no date) (unknown) (unknown) Pain Management (uni ts unknown) (unknown) (unknown) (no date) (unknown) (unknown) Patient: Carrie Horn MR#: [id number] (units unknown) (unknown) (unknown) (no date) (unknown) (unknown) Position Sitting (un its unknown) (unknown) (unknown) (no date) (unknown) (unknown) Primary insomn ia (05/22/16) (units unknown) (unknown) (unknown) (no date) (unknown) (unknown) Pulse 94 H (units unknown) (unknown) (unknown) (no date) (unknown) (unknown) Pulse Oximetry (%) 96 (units unknown) (unknown) (unknown) (no date) (unknown) (unknown) Pulse Source Monitor (units unknown) (unknown) (unknown) (no date) (unknown) (unknown) Reason For Visit (un its unknown) (unknown) (unknown) (no date) (unknown) (unknown) Refills needed on Loraz/Reedy (units unknown) (unknown) (unknown) (no date) (unknown) (unknown) Review/Discuss. (uni ts unknown) (unknown) (unknown) (no date) (unknown) (unknown) Signed By: (units unknown) (unknown) (unknown) (no date) (unknown) (unknown) Smoking Status : Former smoker (units unknown) (unknown) (unknown) (no date) (unknown) (unknown) Status post appendectomy (units unknown) (unknown) (unknown) (no date) (unknown) (unknown) Status post cholecystectomy (units unknown) (unknown) (unknown) (no date) (unknown) (unknown) Surgical Histo ry (units unknown) (unknown) (unknown) (no date) (unknown) (unknown) TAPES-CLEAR Al lergy (Mild, Uncoded 10/08/22 14:54) (units unknown) (unknown) (unknown) (no date) (unknown) (unknown) This note may have been all or partially generated using voice recognition (units unknown) (unknown) (unknown) (no date) (unknown) (unknown) Tobacco + Subs tance Use (units unknown) (unknown) (unknown) (no date) (unknown) (unknown) Tobacco Status (unit s unknown) (unknown) (unknown) (no date) (unknown) (unknown) Uncomplicated opioid dependence (units unknown) (unknown) (unknown) (no date) (unknown) (unknown) VOMITING (units unknown) (unknown) (unknown) (no date) (unknown) (unknown) Visit Reasons: Follow Up Meds (units unknown) (unknown) (unknown) (no date) (unknown) (unknown) Vitals (units unknown) (unknown) (unknown) (no date) (unknown) (unknown) Weight 168 lb (units unknown) (unknown) (unknown) (no date) (unknown) (unknown) [Rx Confirmed 10/08/22] (units unknown) (unknown) (unknown) (no date) (unknown) (unknown) albuterol sulf ate 90 mcg/actuation aerosol inhaler (Ventolin HFA) 2 puff (units unknown) (unknown) (unknown) (no date) (unknown) (unknown) alcohol intake : never (units unknown) (unknown) (unknown) (no date) (unknown) (unknown) aspirin 81 mg tablet,delayed release (Adult Low Dose Aspirin) 81 mg PO DAILY (units unknown) (unknown) (unknown) (no date) (unknown) (unknown) azelastine 205 .5 mcg (0.15 %) nasal spray 1 spray intranasal BID #30 mL 10/28/18 (units unknown) (unknown) (unknown) (no date) (unknown) (unknown) chlorhexidine gluconate 0.12 % mouthwash 15 ml mucous membrane BID PRN prevent (units unknown) (unknown) (unknown) (no date) (unknown) (unknown) cyclobenzaprin e 10 mg tablet 10 mg PO TID PRN muscle spasm #60 tabs 09/06/22 [Rx (units unknown) (unknown) (unknown) (no date) (unknown) (unknown) estradiol 2 mg tablet 2 mg PO DAILY #90 tabs 03/12/22 [Rx Confirmed 10/08/22] (units unknown) (unknown) (unknown) (no date) (unknown) (unknown) gum disease #1 5 mL 03/12/22 [Rx Confirmed 10/08/22] (units unknown) (unknown) (unknown) (no date) (unknown) (unknown) have occurred. If there are any questions, please contact the Medical Records (units unknown) (unknown) (unknown) (no date) (unknown) (unknown) hydrocodone 5 mg-acetaminophen 325 mg tablet 1 - 2 tab PO Q4H PRN pain #70 tabs (units unknown) (unknown) (unknown) (no date) (unknown) (unknown) hyoscyamine lilly lfate 0.125 mg tablet 0.125 mg PO Q4H PRN abdominal pain #90 tabs (units unknown) (unknown) (unknown) (no date) (unknown) (unknown) ibuprofen 800 mg tablet 800 mg PO TID PRN pain #150 tabs 03/12/22 [Rx Confirmed (units unknown) (unknown) (unknown) (no date) (unknown) (unknown) inhalation Q2H P PRN shortness of breath or wheezing #2 inhalations 06/26/21 [Rx (units unknown) (unknown) (unknown) (no date) (unknown) (unknown) latex Allergy (Mild, Verified 10/08/22 14:54) (units unknown) (unknown) (unknown) (no date) (unknown) (unknown) loratadine 10 mg tablet 10 mg PO DAILY #90 tabs 03/12/22 [Rx Confirmed 10/08/22] (units unknown) (unknown) (unknown) (no date) (unknown) (unknown) lorazepam 1 mg tablet 1 mg PO Q8H PRN anxiety #60 tabs 08/21/22 [Rx Confirmed (units unknown) (unknown) (unknown) (no date) (unknown) (unknown) may occur. Occasional wrong-word or 'sound-alike' substitutions may have (units unknown) (unknown) (unknown) (no date) (unknown) (unknown) multivitamin-C a-iron -minerals 18 mg-0.4 mg tablet tab PO 03/12/22 [History (units unknown) (unknown) (unknown) (no date) (unknown) (unknown) naproxen Adver se Reaction (Mild, Verified 10/08/22 14:54) (units unknown) (unknown) (unknown) (no date) (unknown) (unknown) occurred due t o the inherent limitations of voice recognition software. Please (units unknown) (unknown) (unknown) (no date) (unknown) (unknown) omeprazole 40 mg capsule,delayed release 40 mg PO DAILY #90 caps 03/12/22 [Rx (units unknown) (unknown) (unknown) (no date) (unknown) (unknown) read the note carefully and recognize, using context, where these substitutions (units unknown) (unknown) (unknown) (no date) (unknown) (unknown) risper Adverse Reaction (Uncoded 10/08/22 14:54) (units unknown) (unknown) (unknown) (no date) (unknown) (unknown) ritodrine Nicanor rgy (Severe, Verified 10/08/22 14:54) (units unknown) (unknown) (unknown) (no date) (unknown) (unknown) sertraline 100 mg tablet 100 mg PO DAILY #90 tabs 01/09/22 [Rx Confirmed (units unknown) (unknown) (unknown) (no date) (unknown) (unknown) software. 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 (units unknown) (unknown) (unknown) (no date) (unknown) (unknown) substance use type: does not use (units unknown) (unknown) (unknown) (no date) (unknown) (unknown) sucralfate 1 g dawson tablet 1 g PO QACHS #120 tabs 03/12/22 [Rx Confirmed 10/08/22] (units unknown) (unknown) (unknown) (no date) (unknown) (unknown) sumatriptan succinate 50 mg tablet 50 mg PO ONCE #9 tabs 08/06/22 [Rx Confirmed (units unknown) (unknown) (unknown) (no date) (unknown) (unknown) tetracycline A llergy (Mild, Verified 10/08/22 14:54) (units unknown) (unknown) (unknown) (no date) (unknown) (unknown) trazodone 50 m g tablet See Rx Instructions .Route .COMPLEX #360 tabs 03/12/22 (units unknown) (unknown) (unknown) (no date) (unknown) (unknown) vancomycin All ergy (Intermediate, Verified 10/08/22 14:54) (units unknown) (unknown) Result panel 9 (unknown) (no date) (unknown) (unknown) (no value) (units unknown) (unknown) (unknown) (no date) (unknown) (unknown) 'WILLIAM' (units unknown) (unknown) (unknown) (no date) (unknown) (unknown) 'EXEMPT' 1 - 2 tabs PO Q4H PRN 70 tabs 0RF pain G89.29 - Other chronic pain, (units unknown) (unknown) (unknown) (no date) (unknown) (unknown) (1) Chronic pa in syndrome: (units unknown) (unknown) (unknown) (no date) (unknown) (unknown) 08/17/22 [Rx Confirmed 10/08/22] (units unknown) (unknown) (unknown) (no date) (unknown) (unknown) 10/08/22 [Rx Confirmed 10/08/22] (units unknown) (unknown) (unknown) (no date) (unknown) (unknown) 10/08/22 (units unknown) (unknown) (unknown) (no date) (unknown) (unknown) 10/08/22] (units unknown) (unknown) (unknown) (no date) (unknown) (unknown) 03/12/22 [Hist ory Confirmed 10/08/22] (units unknown) (unknown) (unknown) (no date) (unknown) (unknown) 15:00 (units unknown) (unknown) (unknown) (no date) (unknown) (unknown) [id number] (units unknown) (unknown) (unknown) (no date) (unknown) (unknown) Age/Sex: 57 / F Date of Service: (units unknown) (unknown) (unknown) (no date) (unknown) (unknown) Agitated (units unknown) (unknown) (unknown) (no date) (unknown) (unknown) Allergies (units unknown) (unknown) (unknown) (no date) (unknown) (unknown) [place] [address] (units unknown) (unknown) (unknown) (no date) (unknown) (unknown) Anxiety (11/22/16) ( units unknown) (unknown) (unknown) (no date) (unknown) (unknown) Assessment + Plan (u nits unknown) (unknown) (unknown) (no date) (unknown) (unknown) Attending Dr: Nasir Burdick MD (units unknown) (unknown) (unknown) (no date) (unknown) (unknown) BMI 25.5 (units unknown) (unknown) (unknown) (no date) (unknown) (unknown) BP 130/90 (units unknown) (unknown) (unknown) (no date) (unknown) (unknown) Bipolar I disorder ( units unknown) (unknown) (unknown) (no date) (unknown) (unknown) Blood Pressure Location Lt brachial (units unknown) (unknown) (unknown) (no date) (unknown) (unknown) Chronic back pain (u nits unknown) (unknown) (unknown) (no date) (unknown) (unknown) Chronic left shoulder pain (units unknown) (unknown) (unknown) (no date) (unknown) (unknown) Chronic pain o f left knee (units unknown) (unknown) (unknown) (no date) (unknown) (unknown) Chronic pain syndrome (units unknown) (unknown) (unknown) (no date) (unknown) (unknown) Comprehensive Metabolic Panel Today E03.9 - Hypothyroidism, unspecified, G89.4 (units unknown) (unknown) (unknown) (no date) (unknown) (unknown) Confirmed 10/08/22] (units unknown) (unknown) (unknown) (no date) (unknown) (unknown) : 5 Acct:[id number] (units unknown) (unknown) (unknown) (no date) (unknown) (unknown) Dept at . (units unknown) (unknown) (unknown) (no date) (unknown) (unknown) Documented By: Nasir Burdick MD 10/08/22 1453 (units unknown) (unknown) (unknown) (no date) (unknown) (unknown) Draft (units unknown) (unknown) (unknown) (no date) (unknown) (unknown) Dyspareunia in female (05/22/16) (units unknown) (unknown) (unknown) (no date) (unknown) (unknown) [facility] (units unknown) (unknown) (unknown) (no date) (unknown) (unknown) Follow Up Meds (unit s unknown) (unknown) (unknown) (no date) (unknown) (unknown) GIVE BENADRYL FIRST (units unknown) (unknown) (unknown) (no date) (unknown) (unknown) H/O migraine (units unknown) (unknown) (unknown) (no date) (unknown) (unknown) HEART ATTACK (units unknown) (unknown) (unknown) (no date) (unknown) (unknown) HIVES/VOMIT (units unknown) (unknown) (unknown) (no date) (unknown) (unknown) Having issues regulating body temp. (units unknown) (unknown) (unknown) (no date) (unknown) (unknown) Hearing loss (units unknown) (unknown) (unknown) (no date) (unknown) (unknown) Height 5 ft 8 in (un its unknown) (unknown) (unknown) (no date) (unknown) (unknown) History of bow el resection (units unknown) (unknown) (unknown) (no date) (unknown) (unknown) IF ON AWHILE O R IN MOUTH (DENTAL) (units unknown) (unknown) (unknown) (no date) (unknown) (unknown) Intake Note: (units unknown) (unknown) (unknown) (no date) (unknown) (unknown) Intake perform ed by: Lavinia Dutton (units unknown) (unknown) (unknown) (no date) (unknown) (unknown) Intake (units unknown) (unknown) (unknown) (no date) (unknown) (unknown) Intake- [place] [facility] Staff (units unknown) (unknown) (unknown) (no date) (unknown) (unknown) Internal Medic ine Office Visit (units unknown) (unknown) (unknown) (no date) (unknown) (unknown) Last Menstural Cycle + Details (units unknown) (unknown) (unknown) (no date) (unknown) (unknown) Loc: [facility] (units unknown) (unknown) (unknown) (no date) (unknown) (unknown) M25.512 - Pain in left shoulder, M25.562 - Pain in left knee, M54.9 - Dorsalgia, (units unknown) (unknown) (unknown) (no date) (unknown) (unknown) 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 (units unknown) (unknown) (unknown) (no date) (unknown) (unknown) Medical Histor y (Updated 11/07/21 @ 14:37 by Nasir Burdick MD) (units unknown) (unknown) (unknown) (no date) (unknown) (unknown) Medication for incontinence (units unknown) (unknown) (unknown) (no date) (unknown) (unknown) Medications (units unknown) (unknown) (unknown) (no date) (unknown) (unknown) Medications: (units unknown) (unknown) (unknown) (no date) (unknown) (unknown) Methamphetamine use (units unknown) (unknown) (unknown) (no date) (unknown) (unknown) Mixed incontinence ( units unknown) (unknown) (unknown) (no date) (unknown) (unknown) New (units unknown) (unknown) (unknown) (no date) (unknown) (unknown) Orders (units unknown) (unknown) (unknown) (no date) (unknown) (unknown) Orders: (units unknown) (unknown) (unknown) (no date) (unknown) (unknown) Other Menstrua l Period: Surgical Menopause (units unknown) (unknown) (unknown) (no date) (unknown) (unknown) PFSH (units unknown) (unknown) (unknown) (no date) (unknown) (unknown) Pain Management (uni ts unknown) (unknown) (unknown) (no date) (unknown) (unknown) Patient: Carrie Horn MR#: [id number] (units unknown) (unknown) (unknown) (no date) (unknown) (unknown) Position Sitting (un its unknown) (unknown) (unknown) (no date) (unknown) (unknown) Primary insomn ia (05/22/16) (units unknown) (unknown) (unknown) (no date) (unknown) (unknown) Pulse 94 H (units unknown) (unknown) (unknown) (no date) (unknown) (unknown) Pulse Oximetry (%) 96 (units unknown) (unknown) (unknown) (no date) (unknown) (unknown) Pulse Source Monitor (units unknown) (unknown) (unknown) (no date) (unknown) (unknown) Reason For Visit (un its unknown) (unknown) (unknown) (no date) (unknown) (unknown) Refilled (units unknown) (unknown) (unknown) (no date) (unknown) (unknown) Refills needed on Loraz/Reedy (units unknown) (unknown) (unknown) (no date) (unknown) (unknown) Review/Discuss. (uni ts unknown) (unknown) (unknown) (no date) (unknown) (unknown) Signed By: (units unknown) (unknown) (unknown) (no date) (unknown) (unknown) Smoking Status : Former smoker (units unknown) (unknown) (unknown) (no date) (unknown) (unknown) Status post appendectomy (units unknown) (unknown) (unknown) (no date) (unknown) (unknown) Status post cholecystectomy (units unknown) (unknown) (unknown) (no date) (unknown) (unknown) Status: Chronic (uni ts unknown) (unknown) (unknown) (no date) (unknown) (unknown) Surgical Histo ry (units unknown) (unknown) (unknown) (no date) (unknown) (unknown) TAPES-CLEAR Al lergy (Mild, Uncoded 10/08/22 14:54) (units unknown) (unknown) (unknown) (no date) (unknown) (unknown) TSH w/ Reflex to FT4 Today E03.9 - Hypothyroidism, unspecified, G89.4 - Chronic (units unknown) (unknown) (unknown) (no date) (unknown) (unknown) This note may have been all or partially generated using voice recognition (units unknown) (unknown) (unknown) (no date) (unknown) (unknown) Tobacco + Subs tance Use (units unknown) (unknown) (unknown) (no date) (unknown) (unknown) Tobacco Status (unit s unknown) (unknown) (unknown) (no date) (unknown) (unknown) Uncomplicated opioid dependence (units unknown) (unknown) (unknown) (no date) (unknown) (unknown) VOMITING (units unknown) (unknown) (unknown) (no date) (unknown) (unknown) Visit Reasons: Follow Up Meds (units unknown) (unknown) (unknown) (no date) (unknown) (unknown) Vitals (units unknown) (unknown) (unknown) (no date) (unknown) (unknown) Weight 76.204 kg (un its unknown) (unknown) (unknown) (no date) (unknown) (unknown) [Rx Confirmed 10/08/22] (units unknown) (unknown) (unknown) (no date) (unknown) (unknown) albuterol sulf ate 90 mcg/actuation aerosol inhaler (Ventolin HFA) 2 puff (units unknown) (unknown) (unknown) (no date) (unknown) (unknown) alcohol intake : never (units unknown) (unknown) (unknown) (no date) (unknown) (unknown) aspirin 81 mg tablet,delayed release (Adult Low Dose Aspirin) 81 mg PO DAILY (units unknown) (unknown) (unknown) (no date) (unknown) (unknown) azelastine 205 .5 mcg (0.15 %) nasal spray 1 spray intranasal BID #30 mL 10/28/18 (units unknown) (unknown) (unknown) (no date) (unknown) (unknown) chlorhexidine gluconate 0.12 % mouthwash 15 ml mucous membrane BID PRN prevent (units unknown) (unknown) (unknown) (no date) (unknown) (unknown) cyclobenzaprin e 10 mg tablet 10 mg PO TID PRN muscle spasm #60 tabs 09/06/22 [Rx (units unknown) (unknown) (unknown) (no date) (unknown) (unknown) estradiol 2 mg tablet 2 mg PO DAILY #90 tabs 03/12/22 [Rx Confirmed 10/08/22] (units unknown) (unknown) (unknown) (no date) (unknown) (unknown) gum disease #1 5 mL 03/12/22 [Rx Confirmed 10/08/22] (units unknown) (unknown) (unknown) (no date) (unknown) (unknown) have occurred. If there are any questions, please contact the Medical Records (units unknown) (unknown) (unknown) (no date) (unknown) (unknown) hydrocodone 5 mg-acetaminophen 325 mg tablet 1 - 2 tab PO Q4H PRN pain #70 tabs (units unknown) (unknown) (unknown) (no date) (unknown) (unknown) hydrocodone-ac etamin ophen 5-325 mg (units unknown) (unknown) (unknown) (no date) (unknown) (unknown) hyoscyamine lilly lfate 0.125 mg tablet 0.125 mg PO Q4H PRN abdominal pain #90 tabs (units unknown) (unknown) (unknown) (no date) (unknown) (unknown) ibuprofen 800 mg tablet 800 mg PO TID PRN pain #150 tabs 03/12/22 [Rx Confirmed (units unknown) (unknown) (unknown) (no date) (unknown) (unknown) inhalation Q2H P PRN shortness of breath or wheezing #2 inhalations 06/26/21 [Rx (units unknown) (unknown) (unknown) (no date) (unknown) (unknown) latex Allergy (Mild, Verified 10/08/22 14:54) (units unknown) (unknown) (unknown) (no date) (unknown) (unknown) loratadine 10 mg tablet 10 mg PO DAILY #90 tabs 03/12/22 [Rx Confirmed 10/08/22] (units unknown) (unknown) (unknown) (no date) (unknown) (unknown) lorazepam 1 mg PO Q8H PRN 60 tabs 0RF anxiety F51.01 - Primary insomnia (units unknown) (unknown) (unknown) (no date) (unknown) (unknown) lorazepam 1 mg tablet 1 mg PO Q8H PRN anxiety #60 tabs 10/08/22 [Rx Confirmed (units unknown) (unknown) (unknown) (no date) (unknown) (unknown) may occur. Occasional wrong-word or 'sound-alike' substitutions may have (units unknown) (unknown) (unknown) (no date) (unknown) (unknown) multivitamin-C a-iron -minerals 18 mg-0.4 mg tablet tab PO 03/12/22 [History (units unknown) (unknown) (unknown) (no date) (unknown) (unknown) naproxen Adver se Reaction (Mild, Verified 10/08/22 14:54) (units unknown) (unknown) (unknown) (no date) (unknown) (unknown) occurred due t o the inherent limitations of voice recognition software. Please (units unknown) (unknown) (unknown) (no date) (unknown) (unknown) omeprazole 40 mg capsule,delayed release 40 mg PO DAILY #90 caps 03/12/22 [Rx (units unknown) (unknown) (unknown) (no date) (unknown) (unknown) oxybutynin chl oride 5 mg PO BID 180 tabs 3RF (units unknown) (unknown) (unknown) (no date) (unknown) (unknown) oxybutynin chl oride 5 mg tablet 5 mg PO BID #180 tabs 10/08/22 [Rx Confirmed (units unknown) (unknown) (unknown) (no date) (unknown) (unknown) pain syndrome (units unknown) (unknown) (unknown) (no date) (unknown) (unknown) read the note carefully and recognize, using context, where these substitutions (units unknown) (unknown) (unknown) (no date) (unknown) (unknown) risper Adverse Reaction (Uncoded 10/08/22 14:54) (units unknown) (unknown) (unknown) (no date) (unknown) (unknown) ritodrine Nicanor rgy (Severe, Verified 10/08/22 14:54) (units unknown) (unknown) (unknown) (no date) (unknown) (unknown) sertraline 100 mg tablet 100 mg PO DAILY #90 tabs 01/09/22 [Rx Confirmed (units unknown) (unknown) (unknown) (no date) (unknown) (unknown) software. 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 (units unknown) (unknown) (unknown) (no date) (unknown) (unknown) substance use type: does not use (units unknown) (unknown) (unknown) (no date) (unknown) (unknown) sucralfate 1 g dawson tablet 1 g PO QACHS #120 tabs 03/12/22 [Rx Confirmed 10/08/22] (units unknown) (unknown) (unknown) (no date) (unknown) (unknown) sumatriptan succinate 50 mg tablet 50 mg PO ONCE #9 tabs 08/06/22 [Rx Confirmed (units unknown) (unknown) (unknown) (no date) (unknown) (unknown) tetracycline A llergy (Mild, Verified 10/08/22 14:54) (units unknown) (unknown) (unknown) (no date) (unknown) (unknown) trazodone 50 m g tablet See Rx Instructions .Route .COMPLEX #360 tabs 03/12/22 (units unknown) (unknown) (unknown) (no date) (unknown) (unknown) unspecified (units unknown) (unknown) (unknown) (no date) (unknown) (unknown) vancomycin All ergy (Intermediate, Verified 10/08/22 14:54) (units unknown) (unknown) Result panel 10 (unknown) (no date) (unknown) (unknown) (no value) (units unknown) (unknown) (unknown) (no date) (unknown) (unknown) 'WILLIAM' (units unknown) (unknown) (unknown) (no date) (unknown) (unknown) 'EXEMPT' 1 - 2 tabs PO Q4H PRN 70 tabs 0RF pain G89.29 - Other chronic pain, (units unknown) (unknown) (unknown) (no date) (unknown) (unknown) (1) Chronic pa in syndrome: (units unknown) (unknown) (unknown) (no date) (unknown) (unknown) (2) Uncomplica toshia opioid dependence: (units unknown) (unknown) (unknown) (no date) (unknown) (unknown) (3) Bipolar I disorder: (units unknown) (unknown) (unknown) (no date) (unknown) (unknown) (4) Urinary incontinence: (units unknown) (unknown) (unknown) (no date) (unknown) (unknown) 08/17/22 [Rx Confirmed 10/08/22] (units unknown) (unknown) (unknown) (no date) (unknown) (unknown) 10/08/22 1634 (units unknown) (unknown) (unknown) (no date) (unknown) (unknown) 10/08/22 [Rx Confirmed 10/08/22] (units unknown) (unknown) (unknown) (no date) (unknown) (unknown) 10/08/22 (units unknown) (unknown) (unknown) (no date) (unknown) (unknown) 10/08/22] (units unknown) (unknown) (unknown) (no date) (unknown) (unknown) 03/12/22 [Hist ory Confirmed 10/08/22] (units unknown) (unknown) (unknown) (no date) (unknown) (unknown) 15:00 (units unknown) (unknown) (unknown) (no date) (unknown) (unknown) [id number] (units unknown) (unknown) (unknown) (no date) (unknown) (unknown) Add'l Complaints: (u nits unknown) (unknown) (unknown) (no date) (unknown) (unknown) Age/Sex: 57 / F Date of Service: (units unknown) (unknown) (unknown) (no date) (unknown) (unknown) Agitated (units unknown) (unknown) (unknown) (no date) (unknown) (unknown) Allergies (units unknown) (unknown) (unknown) (no date) (unknown) (unknown) Also feels lik e she has trouble regulating her body temperature she gets doing (units unknown) (unknown) (unknown) (no date) (unknown) (unknown) [place] [address] (units unknown) (unknown) (unknown) (no date) (unknown) (unknown) Anxiety (11/22/16) ( units unknown) (unknown) (unknown) (no date) (unknown) (unknown) Assessment + Plan (u nits unknown) (unknown) (unknown) (no date) (unknown) (unknown) Attending Dr: Nasir Burdick MD (units unknown) (unknown) (unknown) (no date) (unknown) (unknown) BMI 25.5 (units unknown) (unknown) (unknown) (no date) (unknown) (unknown) BP 130/90 (units unknown) (unknown) (unknown) (no date) (unknown) (unknown) Bipolar I disorder ( units unknown) (unknown) (unknown) (no date) (unknown) (unknown) Blood Pressure Location Lt brachial (units unknown) (unknown) (unknown) (no date) (unknown) (unknown) Chief Complain t: Refill meds (units unknown) (unknown) (unknown) (no date) (unknown) (unknown) Chronic back pain (u nits unknown) (unknown) (unknown) (no date) (unknown) (unknown) Chronic left shoulder pain (units unknown) (unknown) (unknown) (no date) (unknown) (unknown) Chronic pain o f left knee (units unknown) (unknown) (unknown) (no date) (unknown) (unknown) Chronic pain syndrome (units unknown) (unknown) (unknown) (no date) (unknown) (unknown) Comprehensive Metabolic Panel Today E03.9 - Hypothyroidism, unspecified, G89.4 (units unknown) (unknown) (unknown) (no date) (unknown) (unknown) Confirmed 10/08/22] (units unknown) (unknown) (unknown) (no date) (unknown) (unknown) : 5 Acct:[id number] (units unknown) (unknown) (unknown) (no date) (unknown) (unknown) Dept at . (units unknown) (unknown) (unknown) (no date) (unknown) (unknown) Documented By: Nasir Burdick MD 10/08/22 3754 (units unknown) (unknown) (unknown) (no date) (unknown) (unknown) Dyspareunia in female (05/22/16) (units unknown) (unknown) (unknown) (no date) (unknown) (unknown) [facility] (units unknown) (unknown) (unknown) (no date) (unknown) (unknown) Follow Up Meds (unit s unknown) (unknown) (unknown) (no date) (unknown) (unknown) GIVE BENADRYL FIRST (units unknown) (unknown) (unknown) (no date) (unknown) (unknown) H/O migraine (units unknown) (unknown) (unknown) (no date) (unknown) (unknown) HEART ATTACK (units unknown) (unknown) (unknown) (no date) (unknown) (unknown) HIVES/VOMIT (units unknown) (unknown) (unknown) (no date) (unknown) (unknown) Having issues regulating body temp. (units unknown) (unknown) (unknown) (no date) (unknown) (unknown) Hearing loss (units unknown) (unknown) (unknown) (no date) (unknown) (unknown) Height 5 ft 8 in (un its unknown) (unknown) (unknown) (no date) (unknown) (unknown) History of bow el resection (units unknown) (unknown) (unknown) (no date) (unknown) (unknown) IF ON AWHILE O R IN MOUTH (DENTAL) (units unknown) (unknown) (unknown) (no date) (unknown) (unknown) Intake Note: (units unknown) (unknown) (unknown) (no date) (unknown) (unknown) Intake perform ed by: Lavinia Dutton (units unknown) (unknown) (unknown) (no date) (unknown) (unknown) Intake (units unknown) (unknown) (unknown) (no date) (unknown) (unknown) Intake- Cl[facility] al Staff (units unknown) (unknown) (unknown) (no date) (unknown) (unknown) Internal Medic ine Office Visit (units unknown) (unknown) (unknown) (no date) (unknown) (unknown) Last Menstural Cycle + Details (units unknown) (unknown) (unknown) (no date) (unknown) (unknown) Loc: [facility] (units unknown) (unknown) (unknown) (no date) (unknown) (unknown) M25.512 - Pain in left shoulder, M25.562 - Pain in left knee, M54.9 - Dorsalgia, (units unknown) (unknown) (unknown) (no date) (unknown) (unknown) 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 (units unknown) (unknown) (unknown) (no date) (unknown) (unknown) Medical Histor y (Updated 10/08/22 @ 16:33 by Nasir Burdick MD) (units unknown) (unknown) (unknown) (no date) (unknown) (unknown) Medication for incontinence (units unknown) (unknown) (unknown) (no date) (unknown) (unknown) Medications (units unknown) (unknown) (unknown) (no date) (unknown) (unknown) Medications: (units unknown) (unknown) (unknown) (no date) (unknown) (unknown) Methamphetamine use (units unknown) (unknown) (unknown) (no date) (unknown) (unknown) Mixed incontinence ( units unknown) (unknown) (unknown) (no date) (unknown) (unknown) New (units unknown) (unknown) (unknown) (no date) (unknown) (unknown) Note (units unknown) (unknown) (unknown) (no date) (unknown) (unknown) Note: (units unknown) (unknown) (unknown) (no date) (unknown) (unknown) Notes (units unknown) (unknown) (unknown) (no date) (unknown) (unknown) Okay to refill patient's meds. Discussed with her again importance of taking (units unknown) (unknown) (unknown) (no date) (unknown) (unknown) Orders (units unknown) (unknown) (unknown) (no date) (unknown) (unknown) Orders: (units unknown) (unknown) (unknown) (no date) (unknown) (unknown) Other Menstrua l Period: Surgical Menopause (units unknown) (unknown) (unknown) (no date) (unknown) (unknown) PFSH (units unknown) (unknown) (unknown) (no date) (unknown) (unknown) Pain Management (uni ts unknown) (unknown) (unknown) (no date) (unknown) (unknown) Patient is her e to get lorazepam and hydrocodone refilled. Review of the CLINICAL HAEMATOLOGIST (units unknown) (unknown) (unknown) (no date) (unknown) (unknown) Patient: Carrie Horn MR#: [id number] (units unknown) (unknown) (unknown) (no date) (unknown) (unknown) Plan (units unknown) (unknown) (unknown) (no date) (unknown) (unknown) Position Sitting (un its unknown) (unknown) (unknown) (no date) (unknown) (unknown) Primary insomn ia (05/22/16) (units unknown) (unknown) (unknown) (no date) (unknown) (unknown) Pulse 94 H (units unknown) (unknown) (unknown) (no date) (unknown) (unknown) Pulse Oximetry (%) 96 (units unknown) (unknown) (unknown) (no date) (unknown) (unknown) Pulse Source Monitor (units unknown) (unknown) (unknown) (no date) (unknown) (unknown) Qualifiers: (units unknown) (unknown) (unknown) (no date) (unknown) (unknown) R32 - Unspecif ied urinary incontinence (units unknown) (unknown) (unknown) (no date) (unknown) (unknown) Reason For Visit (un its unknown) (unknown) (unknown) (no date) (unknown) (unknown) Refilled (units unknown) (unknown) (unknown) (no date) (unknown) (unknown) Refills needed on Loraz/Reedy (units unknown) (unknown) (unknown) (no date) (unknown) (unknown) Review/Discuss. (uni ts unknown) (unknown) (unknown) (no date) (unknown) (unknown) She is got uri nary incontinence every time she coughs or laughs or even does (units unknown) (unknown) (unknown) (no date) (unknown) (unknown) Signed By: <Electronically signed by Nasir Burdick MD> (units unknown) (unknown) (unknown) (no date) (unknown) (unknown) Signed (units unknown) (unknown) (unknown) (no date) (unknown) (unknown) Smoking Status : Former smoker (units unknown) (unknown) (unknown) (no date) (unknown) (unknown) Status post appendectomy (units unknown) (unknown) (unknown) (no date) (unknown) (unknown) Status post cholecystectomy (units unknown) (unknown) (unknown) (no date) (unknown) (unknown) Status: Chronic (uni ts unknown) (unknown) (unknown) (no date) (unknown) (unknown) Surgical Histo ry (units unknown) (unknown) (unknown) (no date) (unknown) (unknown) TAPES-CLEAR Al lergy (Mild, Uncoded 10/08/22 14:54) (units unknown) (unknown) (unknown) (no date) (unknown) (unknown) TSH w/ Reflex to FT4 Today E03.9 - Hypothyroidism, unspecified, G89.4 - Chronic (units unknown) (unknown) (unknown) (no date) (unknown) (unknown) This note may have been all or partially generated using voice recognition (units unknown) (unknown) (unknown) (no date) (unknown) (unknown) Tobacco + Subs tance Use (units unknown) (unknown) (unknown) (no date) (unknown) (unknown) Tobacco Status (unit s unknown) (unknown) (unknown) (no date) (unknown) (unknown) Uncomplicated opioid dependence (units unknown) (unknown) (unknown) (no date) (unknown) (unknown) Urinary Incont inence type: unspecified incontinence Qualified Code(s): (units unknown) (unknown) (unknown) (no date) (unknown) (unknown) Urinary incontinence (units unknown) (unknown) (unknown) (no date) (unknown) (unknown) VOMITING (units unknown) (unknown) (unknown) (no date) (unknown) (unknown) Visit Reasons: Follow Up Meds (units unknown) (unknown) (unknown) (no date) (unknown) (unknown) Vitals (units unknown) (unknown) (unknown) (no date) (unknown) (unknown) Weight 76.204 kg (un its unknown) (unknown) (unknown) (no date) (unknown) (unknown) Will check lab s she is overdue for that anyway would need to be doing labs least (units unknown) (unknown) (unknown) (no date) (unknown) (unknown) Will try some oxybutynin immediate release which is usually what I try anyway (units unknown) (unknown) (unknown) (no date) (unknown) (unknown) [Rx Confirmed 10/08/22] (units unknown) (unknown) (unknown) (no date) (unknown) (unknown) albuterol sulf ate 90 mcg/actuation aerosol inhaler (Ventolin HFA) 2 puff (units unknown) (unknown) (unknown) (no date) (unknown) (unknown) alcohol intake : never (units unknown) (unknown) (unknown) (no date) (unknown) (unknown) anything real physical she just turns red red red in the face and that has to (units unknown) (unknown) (unknown) (no date) (unknown) (unknown) as well see if that is a likely etiology but probably more likely than not (units unknown) (unknown) (unknown) (no date) (unknown) (unknown) aspirin 81 mg tablet,delayed release (Adult Low Dose Aspirin) 81 mg PO DAILY (units unknown) (unknown) (unknown) (no date) (unknown) (unknown) azelastine 205 .5 mcg (0.15 %) nasal spray 1 spray intranasal BID #30 mL 10/28/18 (units unknown) (unknown) (unknown) (no date) (unknown) (unknown) but also proba baudilio the only thing covered by insurance company unfortunately (units unknown) (unknown) (unknown) (no date) (unknown) (unknown) chlorhexidine gluconate 0.12 % mouthwash 15 ml mucous membrane BID PRN prevent (units unknown) (unknown) (unknown) (no date) (unknown) (unknown) cyclobenzaprin e 10 mg tablet 10 mg PO TID PRN muscle spasm #60 tabs 09/06/22 [Rx (units unknown) (unknown) (unknown) (no date) (unknown) (unknown) does not indic ate any concerns (units unknown) (unknown) (unknown) (no date) (unknown) (unknown) estradiol 2 mg tablet 2 mg PO DAILY #90 tabs 11/14/22 [Rx Confirmed 10/08/22] (units unknown) (unknown) (unknown) (no date) (unknown) (unknown) gum disease #1 5 mL 03/12/22 [Rx Confirmed 10/08/22] (units unknown) (unknown) (unknown) (no date) (unknown) (unknown) have occurred. If there are any questions, please contact the Medical Records (units unknown) (unknown) (unknown) (no date) (unknown) (unknown) hydrocodone 5 mg-acetaminophen 325 mg tablet 1 - 2 tab PO Q4H PRN pain #70 tabs (units unknown) (unknown) (unknown) (no date) (unknown) (unknown) hydrocodone-ac etamin ophen 5-325 mg (units unknown) (unknown) (unknown) (no date) (unknown) (unknown) hyoscyamine lilly lfate 0.125 mg tablet 0.125 mg PO Q4H PRN abdominal pain #90 tabs (units unknown) (unknown) (unknown) (no date) (unknown) (unknown) ibuprofen 800 mg tablet 800 mg PO TID PRN pain #150 tabs 03/12/22 [Rx Confirmed (units unknown) (unknown) (unknown) (no date) (unknown) (unknown) inhalation Q2H P PRN shortness of breath or wheezing #2 inhalations 06/26/21 [Rx (units unknown) (unknown) (unknown) (no date) (unknown) (unknown) latex Allergy (Mild, Verified 10/08/22 14:54) (units unknown) (unknown) (unknown) (no date) (unknown) (unknown) loratadine 10 mg tablet 10 mg PO DAILY #90 tabs 03/12/22 [Rx Confirmed 10/08/22] (units unknown) (unknown) (unknown) (no date) (unknown) (unknown) lorazepam 1 mg PO Q8H PRN 60 tabs 0RF anxiety F51.01 - Primary insomnia (units unknown) (unknown) (unknown) (no date) (unknown) (unknown) lorazepam 1 mg tablet 1 mg PO Q8H PRN anxiety #60 tabs 10/08/22 [Rx Confirmed (units unknown) (unknown) (unknown) (no date) (unknown) (unknown) may occur. Occasional wrong-word or 'sound-alike' substitutions may have (units unknown) (unknown) (unknown) (no date) (unknown) (unknown) much of anythi ng physical she leaks low bit is horribly unhappy with various (units unknown) (unknown) (unknown) (no date) (unknown) (unknown) multivitamin-C a-iron -minerals 18 mg-0.4 mg tablet tab PO 03/12/22 [History (units unknown) (unknown) (unknown) (no date) (unknown) (unknown) naproxen Adver se Reaction (Mild, Verified 10/08/22 14:54) (units unknown) (unknown) (unknown) (no date) (unknown) (unknown) occurred due t o the inherent limitations of voice recognition software. Please (units unknown) (unknown) (unknown) (no date) (unknown) (unknown) omeprazole 40 mg capsule,delayed release 40 mg PO DAILY #90 caps 03/12/22 [Rx (units unknown) (unknown) (unknown) (no date) (unknown) (unknown) once year give n her chronic narcotic and acetaminophen ingestion. Check thyroid (units unknown) (unknown) (unknown) (no date) (unknown) (unknown) oxybutynin chl oride 5 mg PO BID 180 tabs 3RF (units unknown) (unknown) (unknown) (no date) (unknown) (unknown) oxybutynin chl oride 5 mg tablet 5 mg PO BID #180 tabs 10/08/22 [Rx Confirmed (units unknown) (unknown) (unknown) (no date) (unknown) (unknown) pads and or de vices that are available to help with this problem (units unknown) (unknown) (unknown) (no date) (unknown) (unknown) pain syndrome (units unknown) (unknown) (unknown) (no date) (unknown) (unknown) read the note carefully and recognize, using context, where these substitutions (units unknown) (unknown) (unknown) (no date) (unknown) (unknown) related to hor monal changes (units unknown) (unknown) (unknown) (no date) (unknown) (unknown) risper Adverse Reaction (Uncoded 10/08/22 14:54) (units unknown) (unknown) (unknown) (no date) (unknown) (unknown) ritodrine Nicanor rgy (Severe, Verified 10/08/22 14:54) (units unknown) (unknown) (unknown) (no date) (unknown) (unknown) sertraline 100 mg tablet 100 mg PO DAILY #90 tabs 01/09/22 [Rx Confirmed (units unknown) (unknown) (unknown) (no date) (unknown) (unknown) software. 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 (units unknown) (unknown) (unknown) (no date) (unknown) (unknown) stop doing wha tever she is doing to cool back down again (units unknown) (unknown) (unknown) (no date) (unknown) (unknown) substance use type: does not use (units unknown) (unknown) (unknown) (no date) (unknown) (unknown) sucralfate 1 g dawson tablet 1 g PO QACHS #120 tabs 03/12/22 [Rx Confirmed 10/08/22] (units unknown) (unknown) (unknown) (no date) (unknown) (unknown) sumatriptan succinate 50 mg tablet 50 mg PO ONCE #9 tabs 08/06/22 [Rx Confirmed (units unknown) (unknown) (unknown) (no date) (unknown) (unknown) tetracycline A llergy (Mild, Verified 10/08/22 14:54) (units unknown) (unknown) (unknown) (no date) (unknown) (unknown) these as presc ribed and no additional drugs legal or illegal etcetera (units unknown) (unknown) (unknown) (no date) (unknown) (unknown) trazodone 50 m g tablet See Rx Instructions .Route .COMPLEX #360 tabs 03/12/22 (units unknown) (unknown) (unknown) (no date) (unknown) (unknown) unspecified (units unknown) (unknown) (unknown) (no date) (unknown) (unknown) vancomycin All ergy (Intermediate, Verified 10/08/22 14:54) (units unknown) (unknown) Social History date description facility 2022-08-06 00:00 Ex-smoker (finding) [facility] 2022-10-08 00:00 Ex-smoker (finding) [facility] Vital Signs date measurement value units 2022-08-06 00:00 BMI 25.7 kg/m2 2022-08-06 00:00 BP_diastolic 88 mmHg 2022-08-06 00:00 BP_systolic 120 mmHg 2022-08-06 00:00 heart_rate 88 /min 2022-08-06 00:00 height_metric 172.72 cm 2022-08-06 00:00 height_standard 68 in 2022-08-06 00:00 o2_saturation 99 % 2022-08-06 00:00 weight_metric 76.91 kg 2022-08-06 00:00 weight_standard 169.56 lb 2022-10-08 00:00 BMI 25.5 kg/m2 2022-10-08 00:00 BP_diastolic 90 mmHg 2022-10-08 00:00 BP_systolic 130 mmHg 2022-10-08 00:00 heart_rate 94 /min 2022-10-08 00:00 height_metric 172.72 cm 2022-10-08 00:00 height_standard 68 in 2022-10-08 00:00 o2_saturation 96 % 2022-10-08 00:00 weight_metric 76.2 kg 2022-10-08 00:00 weight_standard 167.99 lb
== END 2022-10-10 13:55 | disposition home or self-care (01) ==
LOC: ED 12:37
DX: S60.152A Contusion of left little finger with damage to nail, initial encounter (principal); W23.0XXA Caught, crushed, jammed, or pinched between moving objects, initial encounter
CPT/HCPCS: 11740; 99283

== ENCOUNTER 2023-04-06 21:12 | Emergency (ER) | payer MEDICAID ==
--- NOTE | 2023-04-06 21:29 | ED Physician Documentation ---
PD HPI CHEST PAIN - Stated complaint Stated Complaint: CHEST PX - Chief complaint Chief Complaint: Cardiac - History obtained from History obtained from: Patient - Additional information Additional information: The patient comes to the emergency department chief complaint of burning chest pain that started suddenly around 2030 this evening after she laid down in bed. The patient states it was substernal and just was very intense for about 15 minutes. She woke her significant other up and told him she wanted to come to the emergency department. The patient denies any shortness of breath, nausea, or diaphoresis along with it. She states that when she got up, the pain began to slowly subside and that currently, she has no pain. The patient states she has had a few other episodes like this over the last few months. Her last episode was about a month ago. She denies any loss of stamina with regard to exercise/exertion. No history of any heart problems, hypertension, diabetes, or smoking of tobacco. The patient does smoke marijuana. She denies any swelling or pain in her lower extremities. No other complaints at this time. PD PAST MEDICAL HISTORY - Past Medical History Past Medical History: Yes Cardiovascular: [place] Respiratory: None Neuro: None Endocrine/Autoimmune: None GI: None TESTING SPECIALIST: None : None HEENT: None Psych: Depression, Anxiety Musculoskeletal: None Derm: None - Past Surgical History Past Surgical History: Yes General: Cholecystectomy, Appendectomy HEENT: Other - Present Medications Home Medications: Ambulatory Orders Medication Instructions Recorded Confirmed Albuterol Sulfate [Proair 1 puffs INH Q4HR PRN 10/20/21 10/10/22 Digihaler] Omeprazole 40 mg PO DAILY 10/20/21 10/10/22 estradioL [Estradiol] 2 mg PO DAILY 10/20/21 10/10/22 Sertraline HCl [Zoloft] 50 mg PO TID 10/27/21 10/10/22 buPROPion HCL [Bupropion HCl] 100 mg PO BID 10/27/21 10/10/22 Cyclobenzaprine [Flexeril] 10 mg PO TID PRN 10/10/22 10/10/22 Hyoscyamine [Levsin] 0.125 mg SL DAILY 10/10/22 10/10/22 LORazepam [Lorazepam] 1 mg PO BID PRN 10/10/22 10/10/22 Loratadine [All Day Allergy Relief] 10 mg PO DAILY 10/10/22 10/10/22 Sumatriptan Succinate [Imitrex] 50 mg PO DAILY PRN 10/10/22 10/10/22 oxyBUTYnin chloride [Oxybutynin 5 mg PO BID 10/10/22 10/10/22 Chloride] - Allergies Allergies/Adverse Reactions: Allergies Allergy/AdvReac Type Severity Reaction Status Date / Time terbutaline [From Brethine] Allergy Rash Verified 04/06/23 21:19 Tetracyclines Allergy Rash Verified 04/06/23 21:19 latex AdvReac Rash Verified 04/06/23 21:19 vancomycin AdvReac Rash Verified 04/06/23 21:19 - Social History Does the pt smoke?: No Smoking Status: Never smoker Does the pt drink ETOH?: Yes Does the pt have substance abuse?: Yes - Immunizations Immunizations are current?: Yes PD ED PE NORMAL - Vitals Vital signs reviewed: Yes - General General: Alert and oriented X 3, No acute distress, Well developed/nourished - HEENT HEENT: Atraumatic, PERRL, EOMI, Moist mucous membranes - Neck Neck: Supple, no meningeal sign - Cardiac Cardiac: RRR, No murmur - Respiratory Respiratory: No respiratory distress, Clear bilaterally - Abdomen Abdomen: Soft, Non tender, Non distended - Derm Derm: Normal color, Warm and dry, No rash - Extremities Extremities: No deformity, No edema, No calf tenderness / cord - Neuro Neuro: Alert and oriented X 3, Other (Grossly intact) - Psych Psych: Normal mood, Normal affect Results - Vitals Vitals: Vital Signs - 24 hr 04/06/23 04/06/23 04/06/23 21:19 21:21 21:51 Temperature 36.5 C Heart Rate 78 75 68 Respiratory 16 18 18 Rate Blood Pressure 130/84 H 120/51 L 122/74 O2 Saturation 98 98 98 04/06/23 04/06/23 04/07/23 22:51 23:00 00:06 Temperature Heart Rate 66 72 70 Respiratory 12 18 16 Rate Blood Pressure 122/63 119/68 122/75 O2 Saturation 93 98 99 Oxygen O2 Source Room air - EKG (time done) 2115 EKG releavant findings:: EKG personally interpreted by author of this note. Relevant findings are: Rate: Rate (enter#) (69) Rhythm: NSR [place]: Normal Intervals: Normal [place] QRS: Normal Ischemia: Normal ST segments Compare to prior EKG: Old EKG unavailable Computer interpretation: Agree with computer - Labs Labs: Laboratory Tests 04/06/23 04/06/23 04/06/23 21:31 21:31 23:17 WBC 7.5 RBC 4.39 Hgb 12.6 Hct 38.2 MCV 87.0 MCH 28.7 MCHC 33.0 RDW 13.3 Plt Count 273 MPV 10.6 Neut # (Auto) 3.9 Lymph # (Auto) 2.9 [place] # (Auto) 0.4 Eos # (Auto) 0.2 Baso # (Auto) 0.0 Absolute Nucleated RBC 0.00 Nucleated RBC % 0.0 Sodium 136 Potassium 3.8 Chloride 105 Carbon Dioxide 25 Anion Gap 6.0 BUN 19 Creatinine 0.8 Estimated GFR (MDRD) 74 L Glucose 109 H Calcium 9.1 Total Bilirubin 0.2 AST 15 ALT 15 Alkaline Phosphatase 53 Troponin I High Sens 2.3 2.5 Total Protein 6.7 Albumin 4.2 Globulin 2.5 Albumin/Globulin Ratio 1.7 Lipase 10 L PD Medical Decision Making - ED course Complexity details: reviewed old records, reviewed results, re-evaluated patient, considered differential, d/w patient, d/w family ED course: The patient was asymptomatic in the emergency department and was well-appearing. She was unremarkable. She was also worked up with laboratory studies including ER abdominal panel, CBC, and troponin. Labs were unremarkable, including repeat troponin. The patient was feeling better still and I felt she was stable for discharge. We have discussed the need for follow-up, and the usual indications for return. We have also discussed symptomatic management at home. Departure - Departure Disposition: Home, Self Care Clinical Impression: Chest pain Qualifiers: Chest pain type: unspecified Qualified Code(s): R07.9 - Chest pain, unspecified Condition: Stable Instructions: ED Chest Pain Atypical Unkn Cause Comments: Your laboratory studies and EKG look great. 2 sets of cardiac enzymes are completely normal. There is no evidence that you have had a heart attack Or any other emergent event tonight. It is important that you follow-up with your primary doctor if you keep getting these episodes, and talk about having a stress test done to close the loop on any concern over your heart. It is certainly possible that you are having some reflux into your esophagus from your stomach and this can cause pain and burning in the same area where you are havi ng it as well. You may try taking antacids if you feel that this is increasingly becoming a problem. If you develop heavy chest pain with shortness of breath and nausea and facial sweating, you should return to the emergency department immediately. Otherwise, please call on Saturday morning to make the next available appointment with your primary doctor to follow-up. Forms: PCP List Discharge Date/Time: 04/07/23 00:06
[2023-04-06 21:45] LABS: BASOPHILS % (AUTO) 0.4 %; EOSINOPHILS # (AUTO) 0.2 10^3/uL (0.0-0.7); EOSINOPHILS % (AUTO) 2.4 %; HCT - HEMATOCRIT 38.2 % (37.0-47.0); HGB - HEMOGLOBIN 12.6 g/dL (12.0-16.0); LYMPHOCYTES # (AUTO) 2.9 10^3/uL (1.5-3.5); LYMPHOCYTES % (AUTO) 38.3 %; MEAN CORPUSCULAR HEMOGLOBIN 28.7 pg (27.0-31.0); MEAN PLATELET VOLUME 10.6 fL (7.9-10.8); MONOCYTES # (AUTO) 0.4 10^3/uL (0.0-1.0); MONOCYTES % (AUTO) 5.8 %; NEUTROPHILS # (AUTO) 3.9 10^3/uL (1.5-6.6); NEUTROPHILS % (AUTO) 52.8 %; PLT - PLATELET COUNT 273 10^3/uL (130-450); RED BLOOD COUNT 4.39 10^6/uL (4.20-5.40); RED CELL DISTRIBUTION WIDTH 13.3 % (12.0-15.0); WHITE BLOOD COUNT 7.5 x10^3/uL (4.8-10.8)
[2023-04-06 22:06] LABS: ALBUMIN 4.2 g/dL (3.2-5.5); ALBUMIN/GLOBULIN RATIO 1.7 (1.0-2.2); BILIRUBIN,TOTAL 0.2 mg/dL (0.2-1.0); CALCIUM 9.1 mg/dL (8.5-10.3); CREATININE 0.8 mg/dL (0.6-1.3); POTASSIUM 3.8 mmol/L (3.5-4.5); TOTAL PROTEIN 6.7 g/dL (6.4-8.9); TROPONIN I HIGH SENSITIVITY 2.3 ng/L (2.3-14.8)
[2023-04-07 00:07] VITALS: BP 122/75; O2SAT 99
== END 2023-04-07 00:06 | disposition home or self-care (01) ==
LOC: ED 21:12
DX: R07.9 Chest pain, unspecified (principal)
CPT/HCPCS: 36415; 80053; 83690; 84484; 85025; 93005; 99283; 99284

== ENCOUNTER 2023-05-09 13:23 | Emergency (ER) | payer MEDICAID ==
--- NOTE | 2023-05-09 14:14 | CT Report ---
PROCEDURE: Head WO INDICATIONS: head injury several weeks ago, still off balance TECHNIQUE: Noncontrast 4.5 mm thick angled axial sections acquired from the foramen magnum to the vertex. For r adiation dose reduction, the following was used: automated exposure control, adjustment of mA and/or kV according to patient size. COMPARISON: 10/27/2021 FINDINGS: Image quality: There is streak artifact seen through the skull base. CSF spaces: Basal cisterns are patent. No extra-axial fluid collections. Ventricles are normal in size and shape. Brain: No midline shift. No intracranial masses or hemorrhage. Garcia-white matter interface is norm al. Skull and face: Calvarium and visualized facial bones are intact, without suspicious lesions. Sinuses: Visualized sinuses and mastoids are clear. IMPRESSION: No intracranial hemorrhage is seen. No significant intracranial abnormality is seen. Reviewed by: Fabian Marcus MD on 05/09/2023 1:[address] [facility] Approved by: Fabian Marcus MD on 05/09/2023 1:[address] [facility] Station ID: [id number]
--- NOTE | 2023-05-09 14:29 | ED Physician Documentation ---
PD HPI HEAD INJURY - Stated complaint Stated Complaint: HEAD SWELLING,WILKS - Chief complaint Chief Complaint: Neuro - History obtained from History obtained from: Patient - Additional information Additional information: The pt comes to the ED with CC of ongoing headaches and dizziness since hitting her head several weeks ago. She also feels that she has swelling in the place where she hit it (R superior-posterior). No LOC at the time. No imaging. No other neurologic sx. PD PAST MEDICAL HISTORY - Past Medical History Past Medical History: Yes Cardiovascular: [place] Respiratory: None Neuro: None Endocrine/Autoimmune: None GI: None PHYSICIAN INTERVENTIONAL CARDIOLOGIST: None : None HEENT: None Psych: Depression, Anxiety Musculoskeletal: Chronic back pain Derm: None - Past Surgical History Past Surgical History: Yes General: Cholecystectomy, Appendectomy HEENT: Other - Present Medications Home Medications: Ambulatory Orders Medication Instructions Recorded Confirmed Albuterol Sulfate [Proair 1 puffs INH Q4HR PRN 10/20/21 10/10/22 Digihaler] Omeprazole 40 mg PO DAILY 10/20/21 10/10/22 estradioL [Estradiol] 2 mg PO DAILY 10/20/21 10/10/22 Sertraline HCl [Zoloft] 50 mg PO TID 10/27/21 10/10/22 buPROPion HCL [Bupropion HCl] 100 mg PO BID 10/27/21 10/10/22 Cyclobenzaprine [Flexeril] 10 mg PO TID PRN 10/10/22 10/10/22 Hyoscyamine [Levsin] 0.125 mg SL DAILY 10/10/22 10/10/22 LORazepam [Lorazepam] 1 mg PO BID PRN 10/10/22 10/10/22 Loratadine [All Day Allergy Relief] 10 mg PO DAILY 10/10/22 10/10/22 Sumatriptan Succinate [Imitrex] 50 mg PO DAILY PRN 10/10/22 10/10/22 oxyBUTYnin chloride [Oxybutynin 5 mg PO BID 10/10/22 10/10/22 Chloride] Meclizine HCl 50 mg PO Q6H PRN #30 tab 05/09/23 - Allergies Allergies/Adverse Reactions: Allergies Allergy/AdvReac Type Severity Reaction Status Date / Time terbutaline [From Brethine] Allergy Rash Verified 05/09/23 13:44 Tetracyclines Allergy Rash Verified 05/09/23 13:44 latex AdvReac Rash Verified 05/09/23 13:44 vancomycin AdvReac Rash Verified 05/09/23 13:44 - Social History Does the pt smoke?: No Smoking Status: Never smoker Does the pt drink ETOH?: Yes Does the pt have substance abuse?: Yes - Immunizations Immunizations are current?: Yes PD ED PE NORMAL - Vitals Vital signs reviewed: Yes - General General: Alert and oriented X 3, No acute distress, Well developed/nourished - HEENT HEENT: Atraumatic, PERRL, EOMI, Moist mucous membranes - Neck Neck: Supple, no meningeal sign - Cardiac Cardiac: RRR, No murmur - Respiratory Respiratory: No respiratory distress, Clear bilaterally - Abdomen Abdomen: Soft, Non tender, Non distended - Derm Derm: Warm and dry - Extremities Extremities: No deformity - Neuro Neuro: Alert and oriented X 3, weed inspector 2-12 intact, No motor deficit, No sensory deficit, Normal speech - Psych Psych: Normal mood, Normal affect Results - Vitals Vitals: Oxygen O2 Source Room air - Rads (name of study) CThead Relevant Findings:: Final report received, See rad report (neg) PD Medical Decision Making - ED course Complexity details: reviewed results, re-evaluated patient, considered differential, d/w patient ED course: Ct head was performed and negative. We have discussed post-concussive syndrome and the need for follow up with her PCP. Departure - Departure Disposition: 01 Home, Self Care Clinical Impression: Post concussion syndrome, Vertigo Condition: Stable Instructions: Concussion [place], ED Concussion, ED Head Injury Closed, ED Vertigo Unspecified Prescriptions: Meclizine HCl 50 mg PO Q6H PRN #30 tab PRN Reason: Vertigo Comments: Your CT scan looks good today. There is no evidence of bleeding in your brain or any skull fractures. You have a resolving hematoma in your scalp which will take some time to go away but will ultimately go back to normal. You most lik kristyn have postconcussive syndrome, where symptoms of concussion can go on for several weeks to few months. You also seem to have vertigo which could be related to postconcussive syndrome. Ultimately, the symptoms would be expected to go away on its own, the you should talk to your doctor about potentially getting tested for vitamin deficiencies and other possible causes of feeling off balance. A prescription for a medication for vertigo has been electronically transmitted to the [facility] pharmacy in [place]. You may take this as needed to help with your vertigo. Please also be sure you are drinking 8 to 10 cups of water every day and getting a good nutritious diet. Make sure you are getting to bed early and getting a full nights rest to help optimize symptom resolution. Forms: PCP List Discharge Date/Time: 05/09/23 15:11
[2023-05-09 15:13] VITALS: BP 124/83; O2SAT 96
== END 2023-05-09 15:11 | disposition home or self-care (01) ==
LOC: ED 13:23
DX: F07.81 Postconcussional syndrome (principal); R42 Dizziness and giddiness; I25.2 Old myocardial infarction; Z79.899 Other long term (current) drug therapy; Z91.040 Latex allergy status
CPT/HCPCS: 99283; 99284

== ENCOUNTER 2023-08-05 15:36 | Emergency (ER) | payer MEDICAID ==
--- NOTE | 2023-08-05 15:51 | ED Physician Documentation ---
PD HPI UPPER EXT INJURY - Stated complaint Stated Complaint: L HAND LAC - Chief complaint Chief Complaint: Trauma Ext - History obtained from History obtained from: Patient (Ambidextrous 58-year-old woman cut her left hand with a linoleum cutter while trying to open a bag of tortillas at home just prior to arrival.) PD PAST MEDICAL HISTORY - Past Medical History Cardiovascular: [place] Respiratory: None Neuro: None Endocrine/Autoimmune: None GI: None BLOCK TRADER: None : None HEENT: None Psych: Depression, Anxiety Musculoskeletal: None Derm: None - Past Surgical History Past Surgical History: Yes General: Cholecystectomy, Appendectomy HEENT: Other - Present Medications Home Medications: Ambulatory Orders Medication Instructions Recorded Confirmed Albuterol Sulfate [Proair 1 puffs INH Q4HR PRN 10/20/21 10/10/22 Digihaler] Omeprazole 40 mg PO DAILY 10/20/21 10/10/22 estradioL [Estradiol] 2 mg PO DAILY 10/20/21 10/10/22 Sertraline HCl [Zoloft] 50 mg PO TID 10/27/21 10/10/22 buPROPion HCL [Bupropion HCl] 100 mg PO BID 10/27/21 10/10/22 Cyclobenzaprine [Flexeril] 10 mg PO TID PRN 10/10/22 10/10/22 Hyoscyamine [Levsin] 0.125 mg SL DAILY 10/10/22 10/10/22 LORazepam [Lorazepam] 1 mg PO BID PRN 10/10/22 10/10/22 Loratadine [All Day Allergy Relief] 10 mg PO DAILY 10/10/22 10/10/22 Sumatriptan Succinate [Imitrex] 50 mg PO DAILY PRN 10/10/22 10/10/22 oxyBUTYnin chloride [Oxybutynin 5 mg PO BID 10/10/22 10/10/22 Chloride] Meclizine HCl 50 mg PO Q6H PRN #30 tab 05/09/23 - Allergies Allergies/Adverse Reactions: Allergies Allergy/AdvReac Type Severity Reaction Status Date / Time terbutaline [From Brethine] Allergy Rash Verified 08/05/23 15:46 Tetracyclines Allergy Rash Verified 08/05/23 15:46 latex AdvReac Rash Verified 08/05/23 15:46 vancomycin AdvReac Rash Verified 08/05/23 15:46 - Social History Does the pt smoke?: Yes Smoking Status: Current every day smoker Does the pt drink ETOH?: Yes Does the pt have substance abuse?: Yes - Immunizations Immunizations are current?: Yes PD ED PE NORMAL - Vitals Vital signs reviewed: Yes - General General: Alert and oriented X 3, No acute distress - Extremities Extremities: Other (On the palm of the left hand over the thenar musculature there is a 2.8 cm linear laceration into muscle. No distal neurovascular compromise.) - Neuro Neuro: Alert and oriented X 3, Normal speech Results - Vitals Vitals: Vital Signs - 24 hr 08/05/23 15:42 Temperature 36.5 C Heart Rate 130 H Respiratory 16 Rate Blood Pressure 162/90 H O2 Saturation 95 Oxygen O2 Source Room air Procedures - Laceration (location) L hand Length in cm: 2.8 Wound type: Linear, Into muscle Neurovascular status: Sensory intact, Motor intact, Vascular intact Tendon involvement: Tendon intact Anesthesia: Lidocaine 1% Wound preparation: Irrigated copiously NS Skin layer closure: Nylon, Interrupted, Size #-0 - enter number (4-0), Sutures - enter # (7) Other: Patient tolerated well, No complications, Neurovascular intact, Dressing applied, Tetanus booster given Departure - Departure Disposition: 01 Home, Self Care Clinical Impression: Laceration of left hand Qualifiers: Encounter type: initial encounter Foreign body presence: without foreign body Qualified Code(s): S61.412A - Laceration without foreign body of left hand, initial encounter Condition: Good Record reviewed to determine appropriate education?: Yes Instructions: ED Laceration Hand Comments: Come back for any signs of infection which would include: Redness, swelling, drainage, increased pain, or fevers. You can wash it soap and water. Keep it covered and moist with bacitracin ointment which is available over the counter; avoid neosporin. Follow-up with your physician in about 14 days for suture removal. Forms: PCP List
[2023-08-05 15:52] VITALS: BP 162/90; O2SAT 95
[2023-08-05] MEDS: BUFFERED LIDOCAINE 10 ML SYRINGE SUBQ STA (15:56)
[2023-08-05] MEDS: TETANUS/DIPHTHERIA/PERTUSSIS 0.5 ML SYRINGE IM ONE (15:57)
== END 2023-08-05 16:17 | disposition home or self-care (01) ==
LOC: ED 15:36
DX: S61.412A Laceration without foreign body of left hand, initial encounter (principal); W45.8XXA Other foreign body or object entering through skin, initial encounter; Y92.009 Unspecified place in unspecified non-institutional (private) residence as the place of occurrence of the external cause; F17.200 Nicotine dependence, unspecified, uncomplicated; Z79.899 Other long term (current) drug therapy; Z23 Encounter for immunization
CPT/HCPCS: 12002; 90471; 99283

== ENCOUNTER 2023-10-17 10:56 | Emergency (ER) | payer MEDICAID ==
--- NOTE | 2023-10-17 11:09 | ED Physician Documentation ---
PD HPI LOWER EXT INJURY - Stated complaint Stated Complaint: RT KNEE INJ/PX - Chief complaint Chief Complaint: Ext Problem - History obtained from History obtained from: Patient - History of Present Illness PD HPI LOW EXT INJURY LOCATION: Right, Knee Type of injury: Twist, Blunt / blow (she was getting out of truck back camper unit and kneeling on edge of it, when she slipped and her knee dropped a level and twisted some. Pain anteriorly mostly but has repeated giving out wiht pain. Had swelling of the knee initially but less now, but still hurting and giving out.) Timing - onset: How many days ago (5) Timing - duration: Days (5) Timing - details: Abrupt onset, Still present Worsened by: Moving Associated symptoms: Swelling (for first 2-3 days, less now.), Other (pain with walking and bending, like doing steps, and also having repeated giving out with sharp pain.). No: Weakness, Numbness Similar symptoms before: Has not had sx before Review of Systems Skin: denies: Abrasion (s), Laceration (s) Neurologic: denies: Focal weakness, Numbness PD PAST MEDICAL HISTORY - Past Medical History Past Medical History: Yes Cardiovascular: [place] Respiratory: None Neuro: None Endocrine/Autoimmune: None GI: None MOLECULAR PHYSICIST: None : None HEENT: None Psych: Depression, Anxiety Musculoskeletal: None Derm: None - Past Surgical History Past Surgical History: Yes General: Cholecystectomy, Appendectomy HEENT: Other - Present Medications Home Medications: Ambulatory Orders Medication Instructions Recorded Confirmed Albuterol Sulfate [Proair 90 mcg IH Q4HR 10/17/23 10/17/23 [place]iclick] Cyclobenzaprine [Flexeril] 10 mg PO TID PRN 10/17/23 10/17/23 HYDROcod/ACET 5/325 Prepack 4 1 tab PO Q4HR PRN 10/17/23 10/17/23 [NORCO 5/325 Prepack 4] Loratadine [Claritin] 10 mg PO DAILY 10/17/23 10/17/23 SUMAtriptan [Imitrex] 25 mg PO ONCE PRN 10/17/23 10/17/23 Sertraline HCl 100 mg PO DAILY 10/17/23 10/17/23 Trazodone HCl 100 mg PO DAILY PM 10/17/23 10/17/23 estradioL [Estradiol] 2 mg PO DAILY 10/17/23 10/17/23 oxyBUTYnin chloride [Oxybutynin 15 mg PO DAILY 10/17/23 10/17/23 Chloride] - Allergies Allergies/Adverse Reactions: Allergies Allergy/AdvReac Type Severity Reaction Status Date / Time risperidone Allergy Unknown Verified 10/17/23 11:02 terbutaline [From Brethine] Allergy Rash Verified 10/17/23 11:02 Tetracyclines Allergy Rash Verified 10/17/23 11:02 latex AdvReac Rash Verified 10/17/23 11:02 vancomycin AdvReac Rash Verified 10/17/23 11:02 - Social History Does the pt smoke?: No Smoking Status: Never smoker Does the pt drink ETOH?: Yes Does the pt have substance abuse?: Yes - Immunizations Immunizations are current?: Yes PD ED PE NORMAL - Vitals Vital signs reviewed: Yes - General General: Alert and oriented X 3, Well developed/nourished - Derm Derm: Normal color, Warm and dry - Extremities Extremities: Other (right knee with tenderness inferior to patella. No current effusion. Tender along medial joint line. No laxity with valgus nor cruciate testing, but hurts with valgus stress. Impaction testing causes pain. No obvious click on exam. ) - Neuro Neuro: No motor deficit, No sensory deficit Results - Vitals Vitals: Oxygen O2 Source Room air - Rads (name of study) right knee Relevant Findings:: Final report received, EMP independent interpretation of test (no fracture. Mild effusion. ) PD Medical Decision Making - ED course Complexity details: reviewed results, considered differential (mechanism and symptoms, along with exam are suggestive of patellar tendon strain and MCL but also likely menial horn meniscal tear. Knee brace and follow up with Ortho 1-2 weeks. ), d/w patient Departure - Departure Disposition: 01 Home, Self Care Clinical Impression: Knee sprain, Meniscal injury Condition: Stable Record reviewed to determine appropriate education?: Yes Instructions: ED Meniscal Injury Knee Poss, ED Sprain Knee Follow-Up: Nasir Burdick MD [Primary Care Provider] - [facility] [Provider Group] Comments: There is a small ta of calcification to 1 side of the kneecap which probably is remnant from your prior injury. It does not look like an acute fracture and if so is really just a small flake of bone off the corner. This would not impact future use or any particular treatment. However I think you are injury seems more like some injury and bruising of the muscle towards the anterior part of the knee and also your description sounds a lot like a meniscal injury with the pain and giving out. Use the hinged knee brace set to just slight flexion to support movement around the knee rotationally and also for flexion extension to have less impact on the meniscus and muscles. Use this over the next 2 to 3 weeks likely although at least for a week and see how your knee is feeling. Follow-up with orthopedics in about 1-1/2 weeks for recheck to see if any further treatment or imaging would be indicated. Call for an appointment. Meanwhile I would suggest ibuprofen 600 to 800 mg 3 times a day with food and your usual medications. Activity as tolerated. Forms: PCP List Discharge Date/Time: 10/17/23 12:18
--- NOTE | 2023-10-17 12:08 | XRAY Report ---
PROCEDURE: Knee 3V RT INDICATIONS: impact, twist of knee with pain TECHNIQUE: 3 views of the knee(s) were acquired. COMPARISON: None. FINDINGS: Bones: No fractures or dislocations. No suspicious bony lesions. Soft tissues: No knee joint effusion. No suspicious soft tissue calcifications or masses. IMPRESSION: No fracture. No osseous lesion. If symptoms and/or clinical concern for pathology persists, further a ssessment with repeat plain film radiographs (7-10 days) or advanced imaging (CT, MR, bone scan) shou ld be considered. Reviewed by: Marleny Reyes MD, PhD on 10/17/2023 12:07 PM PDT Approved by: Marleny Reyes MD, PhD on 10/17/2023 12:07 PM PDT Station ID: [id number]
[2023-10-17 12:29] VITALS: BP 128/82; O2SAT 100
== END 2023-10-17 12:18 | disposition home or self-care (01) ==
LOC: ED 10:56
DX: S83.8X1A Sprain of other specified parts of right knee, initial encounter (principal); W17.89XA Other fall from one level to another, initial encounter
CPT/HCPCS: 99283